=== PATIENT | female | born 1945 | race Caucasian/White ===

== ENCOUNTER 2022-09-05 12:09 | Observation (INO) | payer MEDICARE ==
--- NOTE | 2022-09-05 12:33 | ERPHSYRPT ---
- History of Present Illness Time Seen by Provider: 09/05/22 12:28 Source: patient, family, EMS Exam Limitations: no limitations Physician History: Pt had syncopal episode x 3 in [facility] and finally came to by the time ambulance arrived and no furhter symptoms here. Independent data from pt, bystanders, family and EMS all collaborate same story. No trauma, did not fall. 15 minutes total span of episode. She says no CP or SOBreath. EKG ordered and reviewed and has mild ST elevation and nonspecific , <1 mm. pt states sees cardio Dr. Patino but no procedures done or prescribed - had [place] in 2015 by her Hx. Witnessed: by family, bystander Prior Episodes: multiple episodes today Timing/Duration: today Precipitating Factors: none Context: sitting Loss of Consciousness: prolonged (minutes), dazed Charcter of event(s): became unresponsive Allergies/Adverse Reactions: No Known Drug Allergies Allergy (Verified 09/05/22 12:11) Home Medications: Acetaminophen [Tylenol] 325 mg PO UD 05/19/17 [History] Aspirin EC 325 mg [Ecotrin 325 MG] 325 mg PO DAILY 05/19/17 [History] Bisacodyl 5 mg [Dulcolax 5 mg] 5 mg PO UD 05/19/17 [History] Citalopram Hydrobromide [Celexa] 10 mg PO DAILY 05/19/17 [History] Dextran 70/Hypromellose [Artificial Tears Eye Drops] 15 ml OP UD 05/19/17 [History] Donepezil HCl 10 mg [Aricept 10 MG] 10 mg PO HS 05/19/17 [History] Ergocalciferol (Vitamin D2) [Vitamin D] 50,000 unit PO TID 05/19/17 [History] Gentamicin Sulfate 3.5 gm [Gentak 3.5GM Opthalmic Oint] 1 drop .ROUTE QID 05/19/17 [History] Hydrocodone/Acetaminophen [Hood 5-325 Tablet] 1 each PO UD 05/19/17 [History] Lisinopril 5 mg [Zestril 5 MG] 5 mg PO BID 05/19/17 [History] Metoprolol Succinate 50 mg PO DAILY 05/19/17 [History] Nitroglycerin 0.4 mg Tablet [Nitrostat 0.4 MG Tablet] 0.4 mg SL UD 05/19/17 [History] Omeprazole 20 MG [Prilosec 20 mg] 20 mg PO DAILY 05/19/17 [History] Oxybutynin Chloride [Oxybutynin Chloride ER] 5 mg PO HS 05/19/17 [History] Pravastatin Sodium [Pravachol] 20 mg PO DAILY 05/19/17 [History] Travorpost Ophth [Travatan 0.004% Opth Gena] 2.5 ml OP DAILY 05/19/17 [History] - Past Medical History Pertinent Past Medical History: Yes Neurological History: No Pertinent History ENT History: Cataracts, Macular Degeneration Cardiac History: High Cholesterol, Hypertension Respiratory History: No Pertinent History Endocrine Medical History: No Pertinent History Musculoskeletal History: Osteoarthritis GI Medical History: Gallbladder Disease History: Other Psycho-Social History: Depression Female Reproductive Disorders: Other Other Medical History: satish. eye inj. for degenerative disease, left breast lumpectomy,lap emiliano, pt states "my kidneys work 48% - Past Surgical History Past Surgical History: Yes Neuro Surgical History: No Pertinent History Cardiac: Cardiac Catheterization Respiratory: No Pertinent History Gastrointestinal: Cholecystectomy Genitourinary: Other Musculoskeletal: Joint Replacement, Other Female Surgical History: Lumpectomy Other Surgical History: march 15 2017 bladder tie up and had "massive heart attack", left breast lumpectomy, satish eye inj.for degenerative, lap emiliano.Right hip repair,Righ knee replacement x two - Social History Smoking Status: Never smoker Exposure to second hand smoke: No Drug Use: none - Review of Systems Constitutional: No Fever, No Chills Eyes: No Symptoms Ears, Nose, & Throat: No Symptoms Respiratory: No Cough, No Dyspnea Cardiac: No Chest Pain, No Edema, No Syncope Abdominal/Gastrointestinal: No Abdominal Pain, No Nausea, No Vomiting, No Diarrhea Genitourinary Symptoms: No Dysuria Musculoskeletal: No Back Pain, No Neck Pain Skin: No Rash Neurological: Other (syncope), No Dizziness, No Focal Weakness, No Sensory Changes Psychological: No Symptoms Endocrine: No Symptoms Hematologic/Lymphatic: No Symptoms Immunological/Allergic: No Symptoms All Other Systems: Reviewed and Negative Physical Exam - Nursing Vital Signs Nursing Vital Signs: Initial Vital Signs Temperature 96.3 F 09/05/22 12:14 Pulse Rate 62 09/05/22 12:14 Respiratory Rate 20 09/05/22 12:14 O2 Sat by Pulse Oximetry 98 09/05/22 12:14 Pain Scale Pain Intensity 0 - Kamran Coma Scale Best Eye Response ([place]): (4) open spontaneously Best Verbal Response (Kamran): (5) oriented Best Motor Response ([place]): (6) obeys commands Kamran Total: 15 - Physical Exam General Appearance: no apparent distress, alert Eye Exam: bilateral eye: normal inspection, PERRL, EOMI Ears, Nose, Throat Exam: normal ENT inspection, pharynx normal, moist mucous membranes Neck Exam: normal inspection, non-tender, supple, full range of motion Respiratory: normal breath sounds, lungs clear, No chest tenderness, No respiratory distress Cardiovascular: regular rate/rhythm, capillary refill <2 sec, No murmur, No pulse deficit Gastrointestinal: soft, No tenderness, No distention, No mass Pelvic Exam: deferred Rectal Exam: deferred Back Exam: normal inspection, normal range of motion, No CVA tenderness, No vertebral tenderness Extremity Exam: normal inspection, normal range of motion, pelvis stable, No tenderness Peripheral Pulses: carotid (R): 2+, carotid (L): 2+, femoral (R): 2+, femoral (L): 2+, dorsalis-pedis (R): 2+, dorsalis-pedis (L): 2+ Mental Status: alert, oriented x 3, 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 Exam: normal speech, PERRL, tongue midline, No facial droop Coordination/Gait: normal finger to nose Motor/Sensory: no motor deficit, no sensory deficit, no pronator drift DTR: bicep (R): 2+, bicep (L): 2+, tricep (R): 2+, tricep (L): 2+, knee (R): 2+, knee (L): 2+, ankle (R): 2+, ankle (L): 2+ Skin Exam: normal color, warm, dry, No rash SpO2 Interpretation: normal SpO2: 98 O2 Delivery: Room Air - Course Nursing assessment & vital signs reviewed: Yes EKG Interpreted by Me: Sinus Rhythm, Non-specific ST Changes, Other (minimal ST elevation < 1 mm lat leads) Ordered Tests: Active Orders 24 hr Category Date Time Status EKG-ER Only STAT Care 09/05/22 12:36 Active IV Insertion STAT Care 09/05/22 12:36 Active CHEST 1 VIEW (PORTABLE) Stat Exams 09/05/22 12:36 Taken CHEST WITH CONTRAST [CT] Stat Exams 09/05/22 13:35 Ordered HEAD WITHOUT CONTRAST [CT] Stat Exams 09/05/22 12:37 Taken CBC W DIFF Stat Lab 09/05/22 12:53 Completed CMP Stat Lab 09/05/22 12:53 Completed D-DIMER QUANTITATIVE Stat Lab 09/05/22 12:53 Completed Lactic Acid Stat Lab 09/05/22 12:36 Completed TROPONIN Q4H Lab 09/05/22 12:53 Completed TROPONIN Q4H Lab 09/05/22 16:45 Ordered TROPONIN Q4H Lab 09/05/22 20:45 Ordered UA W/RFX UR CULTURE Stat Lab 09/05/22 12:36 Ordered Medication Summary Generic Name Dose Route Start Last Admin Trade Name Freq PRN Reason Stop Dose Admin Sodium Chloride 1,000 mls @ 100 mls/hr 09/05/22 12:45 09/05/22 13:37 Sodium Chloride 0.9% 1000 Ml IV 10/05/22 12:44 100 mls/hr .Q10H MISA Administration Lab/Rad Data: Laboratory Result Diagrams 09/05/22 12:53 09/05/22 12:53 Laboratory Results 09/05/22 09/05/22 09/05/22 Range/Units 13:57 12:53 12:53 WBC (4.0-10.5) x10^3/uL RBC (4.1-5.4) x10^6/uL Hgb (12.0-16.0) g/dL Hct (35-47) % MCV (78-100) fL MCH (26-32) pg MCHC (32-36) g/dL RDW (11.5-14.0) % Plt Count (150-450) x10^3/uL MPV (7.5-11.0) fL Gran % (36.0-66.0) % Immature Gran % (Auto) (0.00-0.4) % Nucleat RBC Rel Count (0.00-0.1) % Eos # (Auto) (0-0.5) x10^3/uL Immature Gran # (Auto) (0.00-0.03) x10^3u/L Absolute Lymphs (auto) (1.0-4.6) x10^3/uL Absolute Monos (auto) (0.0-1.3) x10^3/uL Absolute Nucleated RBC (0.00-0.01) x10^3u/L Lymphocytes % (24.0-44.0) % Monocytes % (0.0-12.0) % Eosinophils % (0.00-5.0) % Basophils % (0.0-0.4) % Absolute Granulocytes (1.4-6.9) x10^3/uL Basophils # (0-0.4) x10^3/uL D-Dimer 0.71 H* (0.0-0.50) mg/L Sodium (137-145) mmol/L Potassium (3.5-5.1) mmol/L Chloride (98-107) mmol/L Carbon Dioxide (22-30) mmol/L Anion Gap (5-15) MEQ/L BUN (7-17) mg/dL Creatinine (0.52-1.04) mg/dL Estimated GFR ML/MIN Glucose (74-106) mg/dL Lactic Acid (0.4-2.0) Calcium (8.4-10.2) mg/dL Total Bilirubin (0.2-1.3) mg/dL AST (14-36) U/L ALT (0-35) U/L Alkaline Phosphatase (38-126) U/L Troponin I < 0.012 (0.000-0.034) ng/mL Serum Total Protein (6.3-8.2) g/dL Albumin (3.5-5.0) g/dL Influenza Type A Ag NEGATIVE (NEGATIVE) Influenza Type B Ag NEGATIVE (NEGATIVE) RSV (PCR) NEGATIVE (Negative) SARS-CoV-2 (PCR) NEGATIVE (NEGATIVE) 09/05/22 09/05/22 09/05/22 Range/Units 12:53 12:53 12:36 WBC 5.4 (4.0-10.5) x10^3/uL RBC 3.07 L (4.1-5.4) x10^6/uL Hgb 9.7 L (12.0-16.0) g/dL Hct 30.9 L (35-47) % MCV 100.7 H (78-100) fL MCH 31.6 (26-32) pg MCHC 31.4 L (32-36) g/dL RDW 14.6 H (11.5-14.0) % Plt Count 189 (150-450) x10^3/uL MPV 10.0 (7.5-11.0) fL Gran % 63.1 (36.0-66.0) % Immature Gran % (Auto) 0.2 (0.00-0.4) % Nucleat RBC Rel Count 0.0 (0.00-0.1) % Eos # (Auto) 0.06 (0-0.5) x10^3/uL Immature Gran # (Auto) 0.01 (0.00-0.03) x10^3u/L Absolute Lymphs (auto) 1.39 (1.0-4.6) x10^3/uL Absolute Monos (auto) 0.47 (0.0-1.3) x10^3/uL Absolute Nucleated RBC 0.00 (0.00-0.01) x10^3u/L Lymphocytes % 25.9 (24.0-44.0) % Monocytes % 8.8 (0.0-12.0) % Eosinophils % 1.1 (0.00-5.0) % Basophils % 0.9 (0.0-0.4) % Absolute Granulocytes 3.39 (1.4-6.9) x10^3/uL Basophils # 0.05 (0-0.4) x10^3/uL D-Dimer (0.0-0.50) mg/L Sodium 139 (137-145) mmol/L Potassium 4.7 (3.5-5.1) mmol/L Chloride 112 H (98-107) mmol/L Carbon Dioxide 22 (22-30) mmol/L Anion Gap 9.3 (5-15) MEQ/L BUN 23 H (7-17) mg/dL Creatinine 1.44 H (0.52-1.04) mg/dL Estimated GFR 37.4 ML/MIN Glucose 113 H (74-106) mg/dL Lactic Acid 1.0 (0.4-2.0) Calcium 9.6 (8.4-10.2) mg/dL Total Bilirubin 0.20 (0.2-1.3) mg/dL AST 20 (14-36) U/L ALT 12 (0-35) U/L Alkaline Phosphatase 72 (38-126) U/L Troponin I (0.000-0.034) ng/mL Serum Total Protein 6.4 (6.3-8.2) g/dL Albumin 3.6 (3.5-5.0) g/dL Influenza Type A Ag (NEGATIVE) Influenza Type B Ag (NEGATIVE) RSV (PCR) (Negative) SARS-CoV-2 (PCR) (NEGATIVE) - Progress Progress: improved, re-examined Progress Note: 09/05/22 13:36 discussed elevated D dimer with pt and risks/benefits and she wishes to proceed with CT 09/05/22 15:17 ordered and reviewed EKG, Trop, D DImer, CBC, CMT, UA and abd labs with pt, family and Dr. Fuentes. She cannot have CT due to elevated RFTs. 09/05/22 15:[address] Fuentes and family and all agree best to place pt in hospit al for observation and follow trops pulse ox - she feels that the D DImer in view of clinical findings is not likely indicating a PE or DVT but will observe and place on routine proph lovenox and observe rather that test with VQ and this seems reasonable. Discussed with : Rhea Will see patient in: hospital (observation) Counseled pt/family regarding: lab results, diagnosis, need for follow-up, rad results - Departure Departure Disposition: Observation Clinical Impression: Syncope and collapse Condition: Good Critical Care Time: No Referrals: CHRISTOPHER HERNADEZ MD [Primary Care Provider] - Follow up/PCP as directed
[2022-09-05 12:58] LABS: Hematocrit 30.9 % (35-47); Hemoglobin 9.7 g/dL (12.0-16.0); Mean Cell Volume 100.7 fL (78-100); Mean Corpuscular Hemoglobin 31.6 pg (26-32); Mean Corpuscular Hgb Concent. 31.4 g/dL (32-36); Platelet Count 189 x10^3/uL (150-450); Red Blood Count 3.07 x10^6/uL (4.1-5.4); Red Cell Distribution Width 14.6 % (11.5-14.0); White Blood Count 5.4 x10^3/uL (4.0-10.5)
[2022-09-05 12:59] LABS: Absolute Neutrophil Ct (ANC) 3.39 x10^3/uL (1.4-6.9); Basophil (Absolute #) 0.05 x10^3/uL (0-0.4); Eosinophil % 1.1 % (0.00-5.0); Eosinophil (Absolute #) 0.06 x10^3/uL (0-0.5); Lymphocyte (Absolute #) 1.39 x10^3/uL (1.0-4.6); Lymphocytes % 25.9 % (24.0-44.0); Monocyte (Absolute #) 0.47 x10^3/uL (0.0-1.3); Monocytes % 8.8 % (0.0-12.0); Neutrophil % 63.1 % (36.0-66.0)
[2022-09-05 13:26] LABS: ALBUMIN 3.6 g/dL (3.5-5.0); ANION GAP 9.3 MEQ/L (5-15); BILIRUBIN,TOTAL 0.2 mg/dL (0.2-1.3); Calcium 9.6 mg/dL (8.4-10.2); Creatinine 1 1.44 mg/dL (0.52-1.04); EST GLOMERULAR FILTRATION RATE 37.4 ML/MIN; Potassium 4.7 mmol/L (3.5-5.1); Total Protein 6.4 g/dL (6.3-8.2)
[2022-09-05] MEDS: Sodium Chloride 0.9% 1000 ML 1,000 ML IV SCH ×2 (13:37→23:35)
[2022-09-05 14:41] LABS: INFLUENZA A NEGATIVE (NEGATIVE); INFLUENZA B NEGATIVE (NEGATIVE); RESPIRATORY SYNCTIAL VIRUS NEGATIVE (Negative); SARS-CoV-2 Xpert Express NEGATIVE (NEGATIVE)
[2022-09-05] MEDS ORDERED: Zofran 4 MG/2 ML VIAL IV PRN (16:26)
[2022-09-05] MEDS ORDERED: Sodium Chloride 0.9% 1000 ML 1,000 ML IV SCH (16:26)
[2022-09-05] MEDS ORDERED: HUMULIN R SQ PRN (16:26)
[2022-09-05] MEDS ORDERED: ULTRAM 50 MG PO PRN (17:31)
--- NOTE | 2022-09-05 19:08 | XRAY ---
Indication: Syncope. Acute mental status change. Multiple contiguous axial images obtained through the head without contrast. Comparison: None Age-appropriate global atrophy and mild periventricular degenerative micro-ischemia bilaterally. Left external capsule demonstrates 2 foci of remote lacunar infarcts. No acute intracranial hemorrhage, abnormal extra-axial fluid collection, or mass effect. Fourth ventricle is midline without hydrocephalus. Bony calvarium intact. Visualized paranasal sinuses and mastoid air cells are clear. 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 Comment: Preliminary interpretation made by [facility]. No critical discrepancy.
--- NOTE | 2022-09-05 19:09 | XRAY ---
Indication: Syncope. Comparison: March 20, 2008 Portable chest inflated and clear again with left base calcified granuloma. Heart not enlarged. Bony thorax intact with osteopenia and mild degenerative changes. Impression: Continued nonacute chest with chronic features.
[2022-09-05] MEDS: DESYREL 50 MG PO SCH (20:59)
[2022-09-05] MEDS: BUSPAR 5 MG PO SCH (20:59)
[2022-09-05] MEDS: Miralax Powder 17GM PACKET PO SCH (21:00)
[2022-09-05] MEDS: Travatan 0.004% Opth Sol OP SCH (21:01)
[2022-09-05] MEDS: ZOCOR 20MG PO SCH (21:01)
[2022-09-05] MEDS ORDERED: Pepcid 20 MG VIAL IV SCH (22:00)
[2022-09-05] MEDS ORDERED: NEURONTIN PO SCH (22:00)
[2022-09-05] MEDS ORDERED: Ditropan 5 MG PO SCH (22:00)
[2022-09-06 05:39] LABS: Absolute Neutrophil Ct (ANC) 2.08 x10^3/uL (1.4-6.9); Basophil (Absolute #) 0.03 x10^3/uL (0-0.4); Eosinophil % 2.3 % (0.00-5.0); Hematocrit 29.1 % (35-47); Lymphocytes % 39.1 % (24.0-44.0); Mean Corpuscular Hemoglobin 31.3 pg (26-32); Mean Corpuscular Hgb Concent. 30.9 g/dL (32-36); Mean Platelet Volume 10.4 fL (7.5-11.0); Monocyte (Absolute #) 0.43 x10^3/uL (0.0-1.3); Monocytes % 9.9 % (0.0-12.0); Neutrophil % 47.8 % (36.0-66.0); Platelet Count 175 x10^3/uL (150-450); Red Blood Count 2.88 x10^6/uL (4.1-5.4); Red Cell Distribution Width 14.6 % (11.5-14.0); White Blood Count 4.4 x10^3/uL (4.0-10.5)
[2022-09-06 06:11] LABS: ANION GAP 6.8 MEQ/L (5-15); BILIRUBIN,TOTAL 0.1 mg/dL (0.2-1.3); Calcium 8.7 mg/dL (8.4-10.2); Creatinine 1 1.08 mg/dL (0.52-1.04); EST GLOMERULAR FILTRATION RATE 52.2 ML/MIN; Potassium 4.2 mmol/L (3.5-5.1); Total Protein 5.5 g/dL (6.3-8.2)
[2022-09-06] MEDS ORDERED: MEDICATION INTERVENTION MC SCH (07:45)
[2022-09-06] MEDS: ECOTRIN 81 MG PO SCH (09:12)
[2022-09-06] MEDS: Ditropan 5 MG PO SCH ×3 (09:12→22:33)
[2022-09-06] MEDS: Toprol-Xl 25MG Tablets PO SCH (09:12)
[2022-09-06] MEDS: Pepcid 20 MG PO SCH (09:13)
[2022-09-06] MEDS: BUSPAR 5 MG PO SCH ×2 (09:14→22:33)
[2022-09-06] MEDS: ceLEXa 20 MG PO SCH (09:14)
[2022-09-06] MEDS: ENOXAPARIN SODIUM SQ SCH (09:14)
[2022-09-06] MEDS: Zestril 10 MG PO SCH (09:14)
[2022-09-06] MEDS: Miralax Powder 17GM PACKET PO SCH ×2 (09:18→22:33)
[2022-09-06] MEDS: Sodium Chloride 0.9% 1000 ML 1,000 ML IV SCH (09:30)
[2022-09-06] MEDS ORDERED: NON-FORMULARY ITEM (Citalopram Hydrobromide [Celexa] 10 MG Tablet) PO SCH (10:00)
[2022-09-06] MEDS ORDERED: BUSPAR 5 MG PO SCH (10:00)
[2022-09-06] MEDS ORDERED: Zestril 10 MG*** 10 MG, hydroDIURIL 25 MG*** 12.5 MG PO SCH ×2 (10:00)
[2022-09-06] MEDS ORDERED: VITAMIN D2 PO SCH (10:00)
[2022-09-06] MEDS ORDERED: Ditropan XL 5 MG PO SCH (10:00)
[2022-09-06] MEDS ORDERED: BUMEX 1 MG PO SCH (10:00)
--- NOTE | 2022-09-06 20:03 | PCM.HP ---
History of Present Illness - Chief Complaint Chief Complaint: Syncope History of Present Illness: is a 77 year old female patient who had a syncope episode at [facility] ,family states she leaned over into her niece as she passed out and finally came to when ambulance got there. .No head trauma or seizure activity per family. Patient denies chest pain or dyspnea. EKG ordered and reviewed and has mild ST elevation and nonspecific , <1 mm. 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 Patient is admitted to [facility] OBS. - Review of Systems Constitutional: No Symptoms Eyes: No Symptoms Ears, Nose, & Throat: No Symptoms Respiratory: No Symptoms Cardiac: No Symptoms Abdominal/Gastrointestinal: No Symptoms Genitourinary Symptoms: No Symptoms Musculoskeletal: No Symptoms Skin: No Symptoms Neurological: Other (syncope) Psychological: No Symptoms Endocrine: No Symptoms Hematologic/Lymphatic: No Symptoms Immunological/Allergic: No Symptoms Medications & Allergies Home Medications: Home Medication List Citalopram Hydrobromide [Celexa] 10 mg PO DAILY 05/19/17 [History Confirmed 09/05/22] Ergocalciferol (Vitamin D2) [Vitamin D] 50,000 unit PO DAILY 05/19/17 [History Confirmed 09/05/22] Metoprolol Succinate 25 mg PO DAILY 05/19/17 [History Confirmed 09/05/22] Oxybutynin Chloride [Oxybutynin Chloride ER] 5 mg PO TID 05/19/17 [History Confirmed 09/05/22] Pravastatin Sodium [Pravachol] 40 mg PO HS 05/19/17 [History Confirmed 09/05/22] Travorpost Ophth [Travatan 0.004% Opth Gena] 2.5 ml OP HS 05/19/17 [History Confirmed 09/05/22] Aspirin EC 81 mg [Ecotrin 81 mg] 81 mg PO DAILY 09/05/22 [History Confirmed 09/05/22] Bumetanide 1 mg [Bumex 1 mg] 1 mg PO DAILY 09/05/22 [History Confirmed 09/05/22] Buspirone HCl 5 mg [Buspar 5 mg] 10 mg PO TID 09/05/22 [History Confirmed 09/05/22] Gabapentin [Neurontin ] 300 mg PO BID 09/05/22 [History Confirmed 09/05/22] Hydrochlorothiazide 25 mg [hydroDIURIL 25 MG] 12.5 mg PO DAILY 09/05/22 [History Confirmed 09/05/22] Lisinopril 10 mg [Zestril 10 MG] 10 mg PO DAILY 09/05/22 [History Confirmed 09/05/22] Polyethylene Glycol 3350 [Miralax] 17 gm PO BID 09/05/22 [History Confirmed 09/05/22] Tramadol HCl 50 mg [Ultram 50 mg] 50 mg PO DAILY PRN 09/05/22 [History Confirmed 09/05/22] Trazodone HCl 50 mg [Desyrel 50 mg] 50 mg PO HS 09/05/22 [History Confirmed 09/05/22] Trimethoprim 100 mg PO BID 09/05/22 [History Confirmed 09/05/22] Famotidine [Pepcid] 40 mg PO DAILY 30 Days #30 tablet 09/10/22 [Rx] PANTOPRAZOLE 40 mg Tablet [Protonix 40MG Tablet] 40 mg PO QAM 30 Days #30 tab 09/10/22 [Rx] Sucralfate 1 gm [Carafate 1 GM] 1 g PO ACHS 30 Days #120 tablet 09/10/22 [Rx] Allergies/Adverse Reactions: Allergies Allergy/AdvReac Type Severity Reaction Status Date / Time No Known Drug Allergies Allergy Verified 09/05/22 12:11 - Past Medical History Past Medical History: Yes Neurological History: No Pertinent History ENT History: Cataracts, Macular Degeneration Cardiac History: High Cholesterol, Hypertension Respiratory History: No Pertinent History Endocrine Medical History: No Pertinent History Musculoskelatal History: Osteoarthritis GI Medical History: Gallbladder Disease History: Other Pyscho-Social History: Depression Reproductive Disorders: Other Comment: satish. eye inj. for degenerative disease, left breast lumpectomy,lap emiliano, pt states "my kidneys work 48% - Female History Are you now?: No - Past Surgical History Past Surgical History: Yes Neuro Surgical History: No Pertinent History Cardiac History: Cardiac Catheterization Respiratory Surgery: No Pertinent History GI Surgical History: Cholecystectomy Genitourinary Surgical Hx: Other Musculskeletal Surgical Hx: Joint Replacement, Other Female Surgical History: Lumpectomy Other Surgical History: march 15 2017 bladder tie up and had "massive heart attack", left breast lumpectomy, satish eye inj.for degenerative, lap emiliano.Right hip repair,Righ knee replacement x two - Social History Smoking Status: Never smoker Exposure to second hand smoke: No Alcohol: None Drug Use: none - Physical Exam Vital Signs: Vital Signs - 24 hr Temp Pulse Resp BP Pulse Ox 09/06/22 19:42 97.7 F 67 16 122/61 98 09/06/22 16:00 98.0 F 61 16 135/63 99 09/06/22 11:28 97.9 F 65 16 136/64 100 09/06/22 08:00 98.1 F 72 16 138/60 95 09/06/22 04:00 98 F 61 17 104/51 94 L 09/06/22 00:00 97.8 F 75 18 100/46 97 General Appearance: no apparent distress Neurologic Exam: alert, oriented x 3, 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, 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, normal mood/affect, nml cerebellar function, nml station & gait, other (no motor orsensory defecits) Eye Exam: eyes nml inspection Ears, Nose, Throat Exam: normal ENT inspection Neck Exam: normal inspection Respiratory Exam: normal breath sounds Cardiovascular Exam: regular rate/rhythm Gastrointestinal/Abdomen Exam: soft (nontender) Pelvic Exam: not done Rectal Exam: not done Back Exam: normal inspection Extremity Exam: normal inspection Skin Exam: normal color, warm, dry Results - Labs Lab/Micro Results: Lab Results-Last 24 Hours 09/05/22 09/05/22 09/06/22 Range/Units 21:24 22:10 04:50 WBC 4.4 (4.0-10.5) x10^3/uL RBC 2.88 L (4.1-5.4) x10^6/uL Hgb 9.0 L (12.0-16.0) g/dL Hct 29.1 L (35-47) % MCV 101.0 H (78-100) fL MCH 31.3 (26-32) pg MCHC 30.9 L (32-36) g/dL RDW 14.6 H (11.5-14.0) % Plt Count 175 (150-450) x10^3/uL MPV 10.4 (7.5-11.0) fL Gran % 47.8 (36.0-66.0) % Immature Gran % (Auto) 0.2 (0.00-0.4) % Nucleat RBC Rel Count 0.0 (0.00-0.1) % Eos # (Auto) 0.10 (0-0.5) x10^3/uL Immature Gran # (Auto) 0.01 (0.00-0.03) x10^3u/L Absolute Lymphs (auto) 1.70 (1.0-4.6) x10^3/uL Absolute Monos (auto) 0.43 (0.0-1.3) x10^3/uL Absolute Nucleated RBC 0.00 (0.00-0.01) x10^3u/L Lymphocytes % 39.1 (24.0-44.0) % Monocytes % 9.9 (0.0-12.0) % Eosinophils % 2.3 (0.00-5.0) % Basophils % 0.7 (0.0-0.4) % Absolute Granulocytes 2.08 (1.4-6.9) x10^3/uL Basophils # 0.03 (0-0.4) x10^3/uL Sodium (137-145) mmol/L Potassium (3.5-5.1) mmol/L Chloride (98-107) mmol/L Carbon Dioxide (22-30) mmol/L Anion Gap (5-15) MEQ/L BUN (7-17) mg/dL Creatinine (0.52-1.04) mg/dL Estimated GFR ML/MIN Glucose (74-106) mg/dL POC Glucometer 94 (74 to 106) mg/dL Calcium (8.4-10.2) mg/dL Total Bilirubin (0.2-1.3) mg/dL AST (14-36) U/L ALT (0-35) U/L Alkaline Phosphatase (38-126) U/L Troponin I < 0.012 (0.000-0.034) ng/mL Serum Total Protein (6.3-8.2) g/dL Albumin (3.5-5.0) g/dL 09/06/22 Range/Units 04:50 WBC (4.0-10.5) x10^3/uL RBC (4.1-5.4) x10^6/uL Hgb (12.0-16.0) g/dL Hct (35-47) % MCV (78-100) fL MCH (26-32) pg MCHC (32-36) g/dL RDW (11.5-14.0) % Plt Count (150-450) x10^3/uL MPV (7.5-11.0) fL Gran % (36.0-66.0) % Immature Gran % (Auto) (0.00-0.4) % Nucleat RBC Rel Count (0.00-0.1) % Eos # (Auto) (0-0.5) x10^3/uL Immature Gran # (Auto) (0.00-0.03) x10^3u/L Absolute Lymphs (auto) (1.0-4.6) x10^3/uL Absolute Monos (auto) (0.0-1.3) x10^3/uL Absolute Nucleated RBC (0.00-0.01) x10^3u/L Lymphocytes % (24.0-44.0) % Monocytes % (0.0-12.0) % Eosinophils % (0.00-5.0) % Basophils % (0.0-0.4) % Absolute Granulocytes (1.4-6.9) x10^3/uL Basophils # (0-0.4) x10^3/uL Sodium 141 (137-145) mmol/L Potassium 4.2 (3.5-5.1) mmol/L Chloride 116 H (98-107) mmol/L Carbon Dioxide 22 (22-30) mmol/L Anion Gap 6.8 (5-15) MEQ/L BUN 16 (7-17) mg/dL Creatinine 1.08 H (0.52-1.04) mg/dL Estimated GFR 52.2 ML/MIN Glucose 88 (74-106) mg/dL POC Glucometer (74 to 106) mg/dL Calcium 8.7 (8.4-10.2) mg/dL Total Bilirubin 0.10 L (0.2-1.3) mg/dL AST 17 (14-36) U/L ALT 11 (0-35) U/L Alkaline Phosphatase 62 (38-126) U/L Troponin I (0.000-0.034) ng/mL Serum Total Protein 5.5 L (6.3-8.2) g/dL Albumin 3.0 L (3.5-5.0) g/dL - Radiology Impressions Radiology Exams & Impressions: Radiology Procedures Category Date Time Status CHEST 1 VIEW (PORTABLE) Stat Exams 09/05/22 12:36 Completed HEAD WITHOUT CONTRAST [CT] Stat Exams 09/05/22 12:37 Completed - Other Procedures and Tests Respiratory Therapy 09/06/22 20:00 EEG >60 Minutes (Extended) ONCE Assessment/Plan (1) Syncope and collapse Status: Acute Code(s): R55 - SYNCOPE AND COLLAPSE (2) Anemia Status: Acute Code(s): D64.9 - ANEMIA, UNSPECIFIED (3) Black stool Status: Chronic Assessment & Plan: ststes colonoscopy at [facility] 2 yrs ago was clean. Code(s): K92.1 - MELENA (4) CAD (coronary artery disease) Status: Acute Code(s): I25.10 - ATHSCL HEART DISEASE OF [place] DEE-NI' CORONARY ARTERY W/O ANG PCTRS
[2022-09-06] MEDS: TYLENOL 325 MG PO PRN (20:12)
[2022-09-06 20:57] LABS: Iron 55 ug/dL (37-170); Iron Saturation 25 % (20-39); TIBC 224 ug/dL (265-462)
[2022-09-06 21:35] LABS: TSH, 3RD Generation 1.61 mIU/L (0.47-4.68)
[2022-09-06] MEDS: DESYREL 50 MG PO SCH (22:33)
[2022-09-06] MEDS: ZOCOR 20MG PO SCH (22:33)
[2022-09-06] MEDS: Travatan 0.004% Opth Sol OP SCH (22:34)
[2022-09-07] MEDS: Sodium Chloride 0.9% 1000 ML 1,000 ML IV SCH ×3 (03:34→21:15)
[2022-09-07 05:06] LABS: Hematocrit 28.3 % (35-47); Hemoglobin 8.6 g/dL (12.0-16.0); Mean Cell Volume 100.4 fL (78-100); Mean Corpuscular Hemoglobin 30.5 pg (26-32); Mean Corpuscular Hgb Concent. 30.4 g/dL (32-36); Mean Platelet Volume 10.3 fL (7.5-11.0); Platelet Count 168 x10^3/uL (150-450); Red Blood Count 2.82 x10^6/uL (4.1-5.4); Red Cell Distribution Width 14.6 % (11.5-14.0); White Blood Count 4.9 x10^3/uL (4.0-10.5)
[2022-09-07 05:13] LABS: Absolute Neutrophil Ct (ANC) 1.88 x10^3/uL (1.4-6.9); Basophil (Absolute #) 0.02 x10^3/uL (0-0.4); Eosinophil % 2.4 % (0.00-5.0); Eosinophil (Absolute #) 0.12 x10^3/uL (0-0.5); Lymphocyte (Absolute #) 2.36 x10^3/uL (1.0-4.6); Monocyte (Absolute #) 0.53 x10^3/uL (0.0-1.3); Monocytes % 10.8 % (0.0-12.0); Neutrophil % 38.2 % (36.0-66.0); Slide Review 1 NO
[2022-09-07 05:54] LABS: ALBUMIN 3.2 g/dL (3.5-5.0); ANION GAP 8.9 MEQ/L (5-15); BILIRUBIN,TOTAL 0.2 mg/dL (0.2-1.3); Calcium 8.7 mg/dL (8.4-10.2); Potassium 4.1 mmol/L (3.5-5.1); Total Protein 5.7 g/dL (6.3-8.2)
[2022-09-07 09:20] LABS: Appearance Cloudy (Clear); Bacteria Many /HPF (None Seen); Bilirubin Negative (Negative); Blood Negative (Negative); Epithelial Cells Rare /HPF (None Seen); Glucose, Urine Negative (Negative); Hyaline Casts NONE SEEN /LPF (0-2); Ketones Negative (Negative); Leukocyte Esterase Trace (Negative); Nitrite Positive (Negative); Protein,Urine Dip Negative (Negative); RBC 0-2 /HPF (0-5); Specific Gravity 1.015 (1.005-1.030); Urobilinogen 0.2 mg/dL (0.2); WBC 21-50 /HPF (0-5)
[2022-09-07 09:25] LABS: ADD URINE CULTURE? YES (NO)
[2022-09-07] MEDS: Toprol-Xl 25MG Tablets PO SCH (09:28)
[2022-09-07] MEDS: Miralax Powder 17GM PACKET PO SCH ×2 (09:28→21:14)
[2022-09-07] MEDS: ECOTRIN 81 MG PO SCH (09:28)
[2022-09-07] MEDS: Ditropan 5 MG PO SCH ×3 (09:29→21:13)
[2022-09-07] MEDS: ceLEXa 20 MG PO SCH (09:29)
[2022-09-07] MEDS: Pepcid 20 MG PO SCH (09:30)
[2022-09-07] MEDS: Zestril 10 MG PO SCH (09:30)
[2022-09-07] MEDS: ENOXAPARIN SODIUM SQ SCH (09:30)
[2022-09-07] MEDS: BUSPAR 5 MG PO SCH ×2 (09:30→21:13)
--- NOTE | 2022-09-07 13:47 | PCM.NOTE ---
Date and Time: 09/07/22 1342 Subjective Assessment: Patient still undergoing workup for syncopal episode. Telemetry sinus bradycardia rate 58 lowest . Hgb dropped again ,now = 8.6 but no BM to collect stool hemocult ,requesting gen surg consult for possible scope. Patient reports melanotic stool chronically but no GI symptoms currently. EEG just completed reported wnl. Objective Exam General Appearance: no apparent distress Neurologic Exam: alert, oriented x 3, cooperative, normal mood/affect Skin Exam: warm, dry, pale Respiratory Exam: normal breath sounds Cardiovascular Exam: bradycardia (50s rate,regular) Gastrointestinal/Abdomen Exam: soft (nontender) OBJECTIVE DATA Vital Signs: Vital Signs - 24 hr Temp Pulse Resp BP Pulse Ox 09/07/22 12:21 97.7 F 58 L 18 142/62 94 L 09/07/22 12:00 97.7 F 74 18 142/62 94 L 09/07/22 08:00 97.8 F 74 16 129/60 96 09/07/22 04:00 97.8 F 67 17 125/60 94 L 09/06/22 23:22 97.7 F 58 L 16 138/62 96 09/06/22 19:42 97.7 F 67 16 122/61 98 09/06/22 16:00 98.0 F 61 16 135/63 99 Pain Assessment - Last Documented Pain Intensity 0 Pain Scale Used 0-10 Pain Scale Intake and Output: Intake & Output 09/05/22 09/06/22 09/07/22 09/08/22 11:59 11:59 11:59 11:59 Intake Total 2198 1292 360 Output Total 350 2750 Balance 1848 -1458 360 Weight 73.4 kg 74.5 kg Lab Results: Lab Results-Last 24 Hours 09/05/22 09/06/22 09/06/22 Range/Units 09:10 19:58 20:00 WBC (4.0-10.5) x10^3/uL RBC (4.1-5.4) x10^6/uL Hgb (12.0-16.0) g/dL Hct (35-47) % MCV (78-100) fL MCH (26-32) pg MCHC (32-36) g/dL RDW (11.5-14.0) % Plt Count (150-450) x10^3/uL MPV (7.5-11.0) fL Gran % (36.0-66.0) % Immature Gran % (Auto) (0.00-0.4) % Nucleat RBC Rel Count (0.00-0.1) % Eos # (Auto) (0-0.5) x10^3/uL Immature Gran # (Auto) (0.00-0.03) x10^3u/L Absolute Lymphs (auto) (1.0-4.6) x10^3/uL Absolute Monos (auto) (0.0-1.3) x10^3/uL Absolute Nucleated RBC (0.00-0.01) x10^3u/L Lymphocytes % (24.0-44.0) % Monocytes % (0.0-12.0) % Eosinophils % (0.00-5.0) % Basophils % (0.0-0.4) % Absolute Granulocytes (1.4-6.9) x10^3/uL Basophils # (0-0.4) x10^3/uL Sodium (137-145) mmol/L Potassium (3.5-5.1) mmol/L Chloride (98-107) mmol/L Carbon Dioxide (22-30) mmol/L Anion Gap (5-15) MEQ/L BUN (7-17) mg/dL Creatinine (0.52-1.04) mg/dL Estimated GFR ML/MIN Glucose (74-106) mg/dL POC Glucometer (74 to 106) mg/dL Calcium (8.4-10.2) mg/dL Iron 55 (37-170) ug/dL TIBC 224 L (265-462) ug/dL Iron Saturation 25 (20-39) % Total Bilirubin (0.2-1.3) mg/dL AST (14-36) U/L ALT (0-35) U/L Alkaline Phosphatase (38-126) U/L Serum Total Protein (6.3-8.2) g/dL Albumin (3.5-5.0) g/dL Vitamin B12 708 (239-931) pg/mL TSH 3rd Generation 1.610 (0.47-4.68) mIU/L Urine Color Yellow (Yellow) Urine Appearance Cloudy A (Clear) Urine pH 5.0 (4.6-8.0) Ur Specific [place] 1.015 (1.005-1.030) Urine Protein Negative (Negative) Urine Glucose (UA) Negative (Negative) mg/dL Urine Ketones Negative (Negative) Urine Blood Negative (Negative) Urine Nitrite Positive A (Negative) Urine Bilirubin Negative (Negative) Urine Urobilinogen 0.2 (0.2) mg/dL Ur Leukocyte Esterase Trace A (Negative) U Hyaline Cast (Auto) NONE SEEN (0-2) /LPF Urine Microscopic RBC 0-2 (0-5) /HPF Urine Microscopic WBC 21-50 A (0-5) /HPF Ur Epithelial Cells Rare (None Seen) /HPF Urine Bacteria Many A (None Seen) /HPF Urine Culture Reflexed YES (NO) Slides for Path Review 09/07/22 09/07/22 09/07/22 Range/Units 04:27 04:27 11:29 WBC 4.9 (4.0-10.5) x10^3/uL RBC 2.82 L (4.1-5.4) x10^6/uL Hgb 8.6 L (12.0-16.0) g/dL Hct 28.3 L (35-47) % MCV 100.4 H (78-100) fL MCH 30.5 (26-32) pg MCHC 30.4 L (32-36) g/dL RDW 14.6 H (11.5-14.0) % Plt Count 168 (150-450) x10^3/uL MPV 10.3 (7.5-11.0) fL Gran % 38.2 (36.0-66.0) % Immature Gran % (Auto) 0.2 (0.00-0.4) % Nucleat RBC Rel Count 0.0 (0.00-0.1) % Eos # (Auto) 0.12 (0-0.5) x10^3/uL Immature Gran # (Auto) 0.01 (0.00-0.03) x10^3u/L Absolute Lymphs (auto) 2.36 (1.0-4.6) x10^3/uL Absolute Monos (auto) 0.53 (0.0-1.3) x10^3/uL Absolute Nucleated RBC 0.00 (0.00-0.01) x10^3u/L Lymphocytes % 48.0 H (24.0-44.0) % Monocytes % 10.8 (0.0-12.0) % Eosinophils % 2.4 (0.00-5.0) % Basophils % 0.4 (0.0-0.4) % Absolute Granulocytes 1.88 (1.4-6.9) x10^3/uL Basophils # 0.02 (0-0.4) x10^3/uL Sodium 140 (137-145) mmol/L Potassium 4.1 (3.5-5.1) mmol/L Chloride 113 H (98-107) mmol/L Carbon Dioxide 23 (22-30) mmol/L Anion Gap 8.9 (5-15) MEQ/L BUN 16 (7-17) mg/dL Creatinine 1.00 (0.52-1.04) mg/dL Estimated GFR 57.0 ML/MIN Glucose 91 (74-106) mg/dL POC Glucometer 91 (74 to 106) mg/dL Calcium 8.7 (8.4-10.2) mg/dL Iron (37-170) ug/dL TIBC (265-462) ug/dL Iron Saturation (20-39) % Total Bilirubin 0.20 (0.2-1.3) mg/dL AST 17 (14-36) U/L ALT 11 (0-35) U/L Alkaline Phosphatase 59 (38-126) U/L Serum Total Protein 5.7 L (6.3-8.2) g/dL Albumin 3.2 L (3.5-5.0) g/dL Vitamin B12 (239-931) pg/mL TSH 3rd Generation (0.47-4.68) mIU/L Urine Color (Yellow) Urine Appearance (Clear) Urine pH (4.6-8.0) Ur Specific [place] (1.005-1.030) Urine Protein (Negative) Urine Glucose (UA) (Negative) mg/dL Urine Ketones (Negative) Urine Blood (Negative) Urine Nitrite (Negative) Urine Bilirubin (Negative) Urine Urobilinogen (0.2) mg/dL Ur Leukocyte Esterase (Negative) U Hyaline Cast (Auto) (0-2) /LPF Urine Microscopic RBC (0-5) /HPF Urine Microscopic WBC (0-5) /HPF Ur Epithelial Cells (None Seen) /HPF Urine Bacteria (None Seen) /HPF Urine Culture Reflexed (NO) Slides for Path Review NO Multi-Disciplinary Progress Notes: Multi-Disciplinary Progress Notes 09/07/22 11:06 Case Management Note by Nasrin Fisher S/W PATIENT- SHE CONTINUES TO DENY ANY NEW NEEDS AT TIME OF DC. SHE PLANS TO RETURN HOME TO HER PLF AT TIME OF DC Initialized on 09/07/22 11:06 - END OF NOTE Assessment/Plan (1) Syncope and collapse Status: Acute Assessment & Plan: await MRI brain,CTA neck and brain Code(s): R55 - SYNCOPE AND COLLAPSE (2) Anemia Status: Acute Code(s): D64.9 - ANEMIA, UNSPECIFIED (3) Black stool Status: Chronic Code(s): K92.1 - MELENA
[2022-09-07] MEDS: DESYREL 50 MG PO SCH (21:13)
[2022-09-07] MEDS: ZOCOR 20MG PO SCH (21:13)
[2022-09-07] MEDS: Travatan 0.004% Opth Sol OP SCH ×2 (21:14→21:19)
[2022-09-08] MEDS: Sodium Chloride 0.9% 1000 ML 1,000 ML IV SCH ×3 (00:42→21:39)
[2022-09-08 05:53] LABS: Absolute Neutrophil Ct (ANC) 3.17 x10^3/uL (1.4-6.9); Basophil (Absolute #) 0.03 x10^3/uL (0-0.4); Eosinophil % 1.5 % (0.00-5.0); Eosinophil (Absolute #) 0.09 x10^3/uL (0-0.5); Hematocrit 26.5 % (35-47); Hemoglobin 8.4 g/dL (12.0-16.0); Lymphocyte (Absolute #) 1.99 x10^3/uL (1.0-4.6); Mean Cell Volume 99.6 fL (78-100); Mean Corpuscular Hemoglobin 31.6 pg (26-32); Mean Corpuscular Hgb Concent. 31.7 g/dL (32-36); Mean Platelet Volume 10.2 fL (7.5-11.0); Monocyte (Absolute #) 0.55 x10^3/uL (0.0-1.3); Monocytes % 9.4 % (0.0-12.0); Neutrophil % 54.3 % (36.0-66.0); Platelet Count 157 x10^3/uL (150-450); Red Blood Count 2.66 x10^6/uL (4.1-5.4); Red Cell Distribution Width 14.6 % (11.5-14.0); White Blood Count 5.9 x10^3/uL (4.0-10.5)
[2022-09-08 06:33] LABS: ALKALINE PHOSPHATASE 57 U/L (38-126); ANION GAP 5.4 MEQ/L (5-15); BLOOD UREA NITROGEN 11 mg/dL (7-17); CHLORIDE 114 mmol/L (98-107); Calcium 8.6 mg/dL (8.4-10.2); Carbon Dioxide 24 mmol/L (22-30); Creatinine 1 0.83 mg/dL (0.52-1.04); EST GLOMERULAR FILTRATION RATE > 60.0 ML/MIN; Glucose 94 mg/dL (74-106); Potassium 3.8 mmol/L (3.5-5.1); SGOT/AST 18 U/L (14-36); SGPT/ALT 11 U/L (0-35); SODIUM 140 mmol/L (137-145); Total Protein 5.5 g/dL (6.3-8.2)
--- NOTE | 2022-09-08 09:23 | CONS ---
CONSULT DATE: 09/07/2022 HISTORY: The patient is a 77-year-old admitted with some syncopal episodes. She had some anemia and some dark stools. They asked us to see her for possible endoscopy. PAST MEDICAL HISTORY: Hypertension, hypercholesterolemia, cataracts, macular degeneration, osteoarthritis, depression in the past. She had some renal disease. PAST SURGICAL HISTORY: She had some eye injections. She had cholecystectomy, breast lumpectomy in the past. She had a joint replacement, bladder tie up, right knee replacement, right hip repair. HOME MEDICATIONS: She has been on Celexa, vitamin D2, metoprolol, oxybutynin, Pravachol, Travatan eye drops, Ecotrin, Bumex, Buspar, Pepcid, Neurontin, hydroDIURIL, Zestril, MiraLAX, Ultram, Desyrel. She had been on some trimethoprim in the past. ALLERGIES: NKDA. FAMILY HISTORY: Negative for colon cancer according to the patient. SOCIAL HISTORY: No smoking. REVIEW OF SYSTEMS: Fourteen systems reviewed, negative or noncontributory as above and per medical issues as noted above and per preadmission questionnaire. No chest pain or palpitations. LAB DATA AND TESTS: Last hemoglobin was 9 yesterday. PHYSICAL EXAMINATION: GENERAL: No acute distress. HEENT: Sclera nonicteric. NECK: No JVD. CHEST: Equal excursion, nonlabored breathing. CVS: Regular rate and rhythm. ABDOMEN: Soft. No peritoneal signs. EXTREMITIES: No significant edema. NEURO: Alert, moving extremities grossly symmetrically. PSYCH: Appropriate mood and affect. IMPRESSION: Anemia, some dark stools. She had taken some iron in the past. Given her anemia of unclear etiology, I feel she would benefit from upper and lower endoscopy to rule out upper or lower GI source given her anemia. General risk of bleeding or infection, risk of bowel injury or perforation possibly requiring further procedure, risk of missed, nondiagnosis or incomplete exam possibly requiring barium enema, other studies or procedures. General risk of anesthesia or sedation, possibility of inability to diagnose the etiology of anemia source. Consent obtained. She understands and agrees to the plan. I will double check. I believe Dr. Hutchison is here on . If he has time to do the scope, will start a bowel prep tomorrow and keep her on clear liquids.
[2022-09-08] MEDS: ceLEXa 20 MG PO SCH (10:06)
[2022-09-08] MEDS: BUSPAR 5 MG PO SCH ×2 (10:06→21:39)
[2022-09-08] MEDS: Miralax Powder 17GM PACKET PO SCH ×2 (10:06→23:40)
[2022-09-08] MEDS: Zestril 10 MG PO SCH (10:06)
[2022-09-08] MEDS: Ditropan 5 MG PO SCH ×3 (10:06→21:39)
[2022-09-08] MEDS: Toprol-Xl 25MG Tablets PO SCH (10:06)
[2022-09-08] MEDS: Pepcid 20 MG PO SCH (10:06)
[2022-09-08] MEDS: ENOXAPARIN SODIUM SQ SCH (10:51)
--- NOTE | 2022-09-08 11:25 | XRAY ---
Indication: Dizziness. Presyncope. Multi slab 3-D [id number] MRA neck performed without contrast. Comparison: None Visualized carotid bulb, internal carotid, and external carotid arteries are normal in MRA appearance bilaterally. Visualized vertebral arteries demonstrates dominant left vertebral artery without critical stenosis or obstruction. Impression: Negative MRA neck without contrast.
--- NOTE | 2022-09-08 11:45 | XRAY ---
Indication: Dizziness. Presyncope. Sagittal, coronal, and axial MRI brain performed without contrast using T1, T2, FLAIR, diffusion, and ADC sequences. Comparison: None Age-appropriate global atrophy and mild periventricular degenerative micro-ischemia signal bilaterally. Brain stem/omar demonstrates lesser degenerative micro-ischemia signal. Basal ganglia demonstrates remote lacunar infarcts, left greater than right. No acute intracranial hemorrhage, abnormal extra-axial fluid collection, or mass effect. Diffusion images are negative for restricted signal. Fourth ventricle is midline without hydrocephalus. 7/8 cranial nerve complex bilaterally symmetric. Normal flow void signal within the major intracerebral circulation. Normal-appearing craniocervical junction and sella turcica. Paranasal sinuses are clear. Impression: 1. Atrophy and degenerative micro-ischemia within normal limits for patient's age. Bilateral basal ganglia remote lacunar infarcts. 2. Remaining MRI brain without contrast exam is negative.
--- NOTE | 2022-09-08 12:03 | XRAY ---
Indication: Dizziness. Presyncope. Multi-slab 3-D [id number] MRA [place] was performed. Comparison: None Distal internal carotid arteries are bilaterally symmetric without critical stenosis/obstruction. Normal carotid terminus with normal branching left A1 and left/right M1 segments. A normal right A1 segment is not visible suggesting occlusion. Attenuated right A2 segment is supplied via anterior communicating artery. Remaining visible more distal anterior and middle cerebral arteries are normal in MRA appearance bilaterally. Posterior circulation demonstrates dominant left vertebral artery. Remaining basilar, left/right posterior cerebral and left/right superior cerebellar arteries are normal in MRA appearance. Impression: Occluded right A1 segment. More distal right anterior cerebral artery supplied via anterior communicating artery. Remaining MRA [place] is negative.
[2022-09-08] MEDS: TYLENOL 325 MG PO PRN (12:49)
[2022-09-08] MEDS ORDERED: Miscellaneous Medication Order MC ONE (14:00)
[2022-09-08] MEDS ORDERED: Lactated Ringers 1,000 ML IV SCH (17:00)
[2022-09-08] MEDS: GAVILAX PO SCH ×2 (17:06→21:40)
[2022-09-08] MEDS: DESYREL 50 MG PO SCH (21:39)
[2022-09-08] MEDS: ZOCOR 20MG PO SCH (21:39)
[2022-09-08] MEDS: Travatan 0.004% Opth Sol OP SCH (23:41)
[2022-09-09 05:30] LABS: Absolute Neutrophil Ct (ANC) 3.96 x10^3/uL (1.4-6.9); Basophil (Absolute #) 0.02 x10^3/uL (0-0.4); Eosinophil % 1.1 % (0.00-5.0); Eosinophil (Absolute #) 0.07 x10^3/uL (0-0.5); Hematocrit 27.3 % (35-47); Hemoglobin 8.4 g/dL (12.0-16.0); Mean Corpuscular Hemoglobin 30.8 pg (26-32); Mean Corpuscular Hgb Concent. 30.8 g/dL (32-36); Mean Platelet Volume 10.5 fL (7.5-11.0); Monocyte (Absolute #) 0.52 x10^3/uL (0.0-1.3); Monocytes % 8.3 % (0.0-12.0); Platelet Count 153 x10^3/uL (150-450); Red Blood Count 2.73 x10^6/uL (4.1-5.4); Red Cell Distribution Width 14.2 % (11.5-14.0); White Blood Count 6.3 x10^3/uL (4.0-10.5)
[2022-09-09 06:00] LABS: ALKALINE PHOSPHATASE 63 U/L (38-126); ANION GAP 7.7 MEQ/L (5-15); BLOOD UREA NITROGEN 9 mg/dL (7-17); CHLORIDE 112 mmol/L (98-107); Calcium 8.5 mg/dL (8.4-10.2); Carbon Dioxide 22 mmol/L (22-30); Creatinine 1 0.74 mg/dL (0.52-1.04); EST GLOMERULAR FILTRATION RATE > 60.0 ML/MIN; Glucose 84 mg/dL (74-106); Potassium 3.7 mmol/L (3.5-5.1); SGOT/AST 19 U/L (14-36); SGPT/ALT 12 U/L (0-35); SODIUM 138 mmol/L (137-145); Total Protein 5.6 g/dL (6.3-8.2)
[2022-09-09] MEDS ORDERED: Lactated Ringers 1,000 ML IV SCH (07:00)
[2022-09-09] MEDS: TYLENOL 325 MG PO PRN ×2 (07:39→19:44)
[2022-09-09] MEDS: Zestril 10 MG PO SCH (08:51)
[2022-09-09] MEDS: Sodium Chloride 0.9% 1000 ML 1,000 ML IV SCH (08:51)
[2022-09-09] MEDS: BUSPAR 5 MG PO SCH ×2 (08:51→19:43)
[2022-09-09] MEDS: Toprol-Xl 25MG Tablets PO SCH (08:51)
[2022-09-09] MEDS: Ditropan 5 MG PO SCH ×3 (08:51→19:44)
[2022-09-09] MEDS: Pepcid 20 MG PO SCH (08:51)
[2022-09-09] MEDS: ceLEXa 20 MG PO SCH (08:51)
[2022-09-09] MEDS: Miralax Powder 17GM PACKET PO SCH ×2 (08:52→19:45)
[2022-09-09] MEDS ORDERED: Xylocaine-Mpf 2% 5 Ml Vial ONE (11:05)
[2022-09-09] MEDS ORDERED: DIPRIVAN 200 MG/20 ML IV ONE ×2 (11:06→11:26)
--- NOTE | 2022-09-09 13:01 | OP ---
SURGERY DATE/TIME: 09/09/2022 1106 PREOPERATIVE DIAGNOSIS: GI bleed. POSTOPERATIVE DIAGNOSES: 1) Prepyloric ulcer which had recently been bleeding but not bleeding now, starting to heal. 2) A 4 inch hiatal hernia. 3) Grade 4 gastroesophageal reflux disease which had been bleeding but not now. 4) On colonoscopy severe diverticulosis of the sigmoid. Exam was limited to hepatic flexure. There were no signs of any bleeding in the colon at all. PROCEDURES: 1) EGD. 2) Colonoscopy. SURGEON: Jani Hutchison M.D. ANESTHESIA: MAC. COMPLICATIONS: None. CONDITION: Stable. DESCRIPTION OF PROCEDURE: Taken to endoscopy. MAC sedation provided. Good anesthesia present. Scope introduced. Pharyngoesophageal junction normal. Esophagus normal down to gastroesophageal junction. There was a 4 inch hiatal hernia and there was grade 4 gastroesophageal reflux disease. Fundus and body were satisfactory. Antrum prepyloric ulcer was present and had been bleeding but not bleeding now. Duodenal bulb was normal. Second portion normal. Scope looped back on itself. A 4 inch hiatal hernia. Scope withdrawn. There was really a lot of upper disease in this lady which seemed to be improving. Anal digital examination. Scope introduced. Sigmoid was treacherous. There were hundreds of diverticula. It was navigated with loss of a lot of scope length and controlled it up the descending across the transverse, hepatic flexure. It was not really wanting to move any and there were absolutely no signs of bleeding. The only thing that was being missed was the cecum and ascending colon and it was not felt to be the source of bleeding. The scope was circumferentially withdrawn. Findings discussed with the family in the waiting room.
[2022-09-09] MEDS: Protonix 40MG Tablet PO SCH ×2 (16:06→19:43)
[2022-09-09] MEDS: ENOXAPARIN SODIUM SQ SCH (16:06)
[2022-09-09] MEDS: Carafate 1 GM PO SCH ×2 (16:06→19:43)
[2022-09-09] MEDS: DESYREL 50 MG PO SCH (19:44)
[2022-09-09] MEDS: ZOCOR 20MG PO SCH (19:44)
[2022-09-09] MEDS: Travatan 0.004% Opth Sol OP SCH (19:45)
[2022-09-10 06:01] VITALS: O2SAT 92
[2022-09-10 07:32] VITALS: BP 147/71; PULSE 87
[2022-09-10] MEDS: Carafate 1 GM PO SCH (08:16)
== END 2022-09-10 10:02 | disposition home or self-care (01) ==
LOC: ED 12:09 → MED SURG 16:08
PROVIDERS: ADMIT Family Medicine; ATTEND Family Medicine
DX: R55 Syncope and collapse (principal); D64.9 Anemia, unspecified; K92.1 Melena; I25.10 Atherosclerotic heart disease of native coronary artery without angina pectoris; K25.9 Gastric ulcer, unspecified as acute or chronic, without hemorrhage or perforation; K44.9 Diaphragmatic hernia without obstruction or gangrene; K21.9 Gastro-esophageal reflux disease without esophagitis; K57.30 Diverticulosis of large intestine without perforation or abscess without bleeding; E78.5 Hyperlipidemia, unspecified; I10 Essential (primary) hypertension; R00.1 Bradycardia, unspecified; Z79.899 Other long term (current) drug therapy; Z20.828 Contact with and (suspected) exposure to other viral communicable diseases
CPT/HCPCS: 0241U; 36000; 36415; 43235; 45378; 70450; 70544; 70547; 70551; 71045; 80053; 81001; 82274; 82607; 82947; 83036; 83540; 83550; 83605; 84443; 84484; 85025; 85379; 87077; 87086; 87186; 93005; 94760; 95813; 99285; 93268; 99100; 99140; J1650; J2704; A9270-GY; G0378

== ENCOUNTER 2024-01-31 11:20 | Observation (INO) | payer MEDICARE ==
--- NOTE | 2024-01-31 11:31 | ERPHSYRPT ---
- History of Present Illness Time Seen by Provider: 01/31/24 11:31 Source: patient Exam Limitations: no limitations Physician History: The patient, with a history of hypertension, hyperlipidemia, and a family history of stroke, presents with acute cognitive and motor changes. Over the past month, she has been 'not steady on her legs' and 'not completely right.' This morning, she was noted to be 'not talking' and 'forgetting.' She was unable to participate in conversation with friends and forgot about a planned breakfast outing. She denies recent falls or head trauma. Timing/Duration: week(s) (2), worse Severity: moderate Character of Deficits: impaired speech, unable to speak Deficits: off balance, decrease ability to walk Baseline/Normal Cognition: alert oriented x 3 Current Cognition: alert oriented x 3 Baseline Gait: walks only w/assistance Associated Symptoms: weakness, trouble walking, No fever, No chills, No loss of consciousness, No slurred speech Allergies/Adverse Reactions: No Known Drug Allergies Allergy (Verified 01/31/24 11:32) Home Medications: Citalopram Hydrobromide [Celexa] 10 mg PO DAILY 05/19/17 [History] Metoprolol Succinate 25 mg PO DAILY 05/19/17 [History] Oxybutynin Chloride [Oxybutynin Chloride ER] 5 mg PO TID 05/19/17 [History] Pravastatin Sodium [Pravachol] 40 mg PO HS 05/19/17 [History] Travorpost Ophth [Travatan 0.004% Opth Gena] 2.5 ml OP HS 05/19/17 [Histo ry] Aspirin EC 81 mg [Ecotrin 81 mg] 81 mg PO DAILY 09/05/22 [History] Bumetanide 1 mg [Bumex 1 mg] 1 mg PO DAILY 09/05/22 [History] Buspirone HCl 5 mg [Buspar 5 mg] 10 mg PO TID 09/05/22 [History] Gabapentin [Neurontin ] 400 mg PO TID 09/05/22 [History] Tramadol HCl 50 mg [Ultram 50 mg] 50 mg PO [id number] PRN 09/05/22 [History] Trazodone HCl 50 mg [Desyrel 50 mg] 75 mg PO HS 09/05/22 [History] Trimethoprim 100 mg PO DAILY 09/05/22 [History] Losartan Potassium 50 mg [Cozaar 50 MG] 50 mg PO DAILY 01/31/24 [History] Non-Formulary Drug [Non-Formulary Bulk Item] 1 tab PO TID 01/31/24 [History] Hx Influenza Vaccination/Date Given: Yes Hx Pneumococcal Vaccination/Date Given: Yes - Review of Systems All Other Systems: Reviewed and Negative - Past Medical History Pertinent Past Medical History: Yes Neurological History: No Pertinent History ENT History: Cataracts, Macular Degeneration Cardiac History: High Cholesterol, Hypertension, Myocardial Infarction ([place]) Respiratory History: No Pertinent History Endocrine Medical History: No Pertinent History Musculoskeletal History: Osteoarthritis GI Medical History: Gallbladder Disease History: Other Psycho-Social History: Depression Female Reproductive Disorders: Other Other Medical History: R KNEE REPLACEMENT, 2017 "MASSIVE HEART ATTACK", MDD, GERD, SHOTS IN EYES 1X MONTH FOR GLAUCOMA, INCONTINENCE. PATIENT REPORTS SHE NEEDS A LEFT KNEE REPLACEMENT BUT IS NOT A SURGICAL CANDIDATE PER CARDIOLOGY. PATIENT DENIES USE OF KNEE BRACE OR HX OF CORTISONE INJECTIONS. - Past Surgical History Past Surgical History: Yes Neuro Surgical History: No Pertinent History Cardiac: Cardiac Catheterization Respiratory: No Pertinent History Gastrointestinal: Cholecystectomy Genitourinary: Other Musculoskeletal: Joint Replacement, Other Female Surgical History: Lumpectomy Other Surgical History: march 15 2017 bladder tie up and had "massive heart attack", left breast lumpectomy, satish eye inj.for degenerative, lap emiliano.Right hip repair,Righ knee replacement x two - Social History Smoking Status: Never smoker Exposure to second hand smoke: No Drug Use: none Patient Lives Alone: No - Nursing Vital Signs Nursing Vital Signs: Initial Vital Signs Temperature 98.2 F 01/31/24 11:49 Pulse Rate 79 01/31/24 11:49 Respiratory Rate 18 01/31/24 11:49 Blood Pressure 138/66 01/31/24 11:49 O2 Sat by Pulse Oximetry 97 01/31/24 11:49 Pain Scale Pain Intensity 0 - Kamran Coma Scale Best Eye Response (Hassell): (4) open spontaneously Best Verbal Response (Kamran): (5) oriented Best Motor Response (Kamran): (6) obeys commands Hassell Total: 15 - Physical Exam General Appearance: no apparent distress Eye Exam: bilateral eye: normal inspection, PERRL, EOMI - Course Nursing assessment & vital signs reviewed: Yes EKG Interpreted by Me: RATE (84), Sinus Rhythm, Q-wave, NORMAL ST-T, Other (PAC) - CT Exams Head CT Interpretation: Tele-radiologist Report, No/Intracranial Hemorrhag, Other (Nonacute senile brain with remote lacunar infarcts left and right) Ordered Tests: Medication Summary Generic Name Dose Route Start Last Admin Trade Name Freq PRN Reason Stop Dose Admin Acetaminophen 650 mg 02/01/24 07:12 Acetaminophen 325 Mg Tablet PO 03/01/24 15:06 Q4H PRN PRN PAIN, FEVER, HEADACHE Aspirin 81 mg 02/01/24 10:00 02/01/24 10:16 Aspirin 81 Mg Tablet.Ec PO 03/02/24 09:59 81 mg DAILY MISA Administration Buspirone HCl 10 mg 01/31/24 22:00 02/01/24 15:15 Buspirone Hcl 5 Mg Tablet PO 03/01/24 21:59 10 mg TID MISA Administration Citalopram Hydrobromide 10 mg 02/01/24 10:00 02/01/24 10:16 Citalopram Hydrobromide 20 Mg Tablet PO 03/02/24 09:59 10 mg DAILY MISA Administration Clopidogrel Bisulfate 75 mg 02/01/24 10:00 02/01/24 10:18 Clopidogrel Bisulfate 75 Mg Tablet PO 02/22/24 09:59 75 mg DAILY MISA Administration Famotidine 40 mg 02/01/24 10:00 02/01/24 10:16 Famotidine 20 Mg Tablet PO 03/02/24 09:59 40 mg DAILY MISA Administration Gabapentin 400 mg 01/31/24 22:00 02/01/24 21:40 Gabapentin 400 Mg Capsule PO 03/01/24 21:59 400 mg TID MISA Administration Sodium Chloride 1,000 mls @ 50 mls/hr 01/31/24 13:45 02/01/24 08:15 Sodium Chloride 0.9% 1000 Ml IV 03/01/24 13:44 50 mls/hr .Q20H MISA Administration Ceftriaxone Sodium 1 gm in 100 mls @ 200 mls/hr 02/01/24 15:00 02/01/24 15:15 Rocephin 1 Gm / 100 Ml Nacl IV 03/02/24 14:59 200 mls/hr Q24H10 MISA Administration Azithromycin 500 mg in 250 mls @ 250 mls/hr 02/02/24 10:00 Zithromax 500 Mg/ 250 Ml Nacl Premix IV 03/03/24 09:59 Q24H10 MISA Losartan Potassium 50 mg 02/01/24 10:00 02/01/24 10:16 Losartan Potassium 50 Mg Tablet PO 03/02/24 09:59 50 mg DAILY MISA Administration Metoprolol Succinate 25 mg 02/01/24 10:00 02/01/24 10:16 Metoprolol Succinate 25 Mg Xl Tab PO 03/02/24 09:59 25 mg DAILY MISA Administration Ondansetron HCl 4 mg 01/31/24 15:07 01/31/24 21:32 Ondansetron Hcl 4 Mg/2 Ml Vial IV 03/01/24 15:06 4 mg Q6H PRN PRN Administration NAUSEA/VOMITING Oxybutynin Chloride 5 mg 02/01/24 10:00 02/01/24 21:39 Oxybutynin Chloride 5 Mg Tablet PO 03/02/24 09:59 5 mg TID MISA Administration Pantoprazole Sodium 40 mg 02/01/24 10:00 02/01/24 10:15 Protonix (Pantoprazole) 40 Mg Tablet PO 03/02/24 09:59 40 mg QAM MISA Administration Simvastatin 40 mg 01/31/24 22:00 01/31/24 21:26 Simvastatin 20 Mg Tablet PO 03/01/24 21:59 40 mg HS MISA Administration Tramadol HCl 50 mg 01/31/24 17:33 02/01/24 21:41 Tramadol Hcl 50 Mg Tablet PO 03/01/24 17:32 50 mg [id number] PRN Administration PAIN Travoprost 0 ml 01/31/24 22:00 02/01/24 21:40 Travorpost 2.5 Ml Bottle OP 03/01/24 21:59 1 ml HS MISA Administration Trazodone HCl 75 mg 02/01/24 22:00 02/01/24 21:40 Trazodone Hcl 150 Mg Tablet PO 03/02/24 21:59 75 mg HS MISA Administration Discontinued Medications Generic Name Dose Route Start Last Admin Trade Name Freq PRN Reason Stop Dose Admin Acetaminophen 600 mg 01/31/24 15:07 01/31/24 20:52 Acetaminophen 325 Mg Tablet PO 03/01/24 15:06 600 mg Q4H PRN PRN Administration PAIN, FEVER, HEADACHE Droperidol 1.25 mg 01/31/24 12:58 Droperidol 5 Mg/2 Ml Vial IV 01/31/24 12:59 STAT ONE Gabapentin 400 mg 01/31/24 22:00 Gabapentin 300 Mg Capsule PO 03/01/24 21:59 TID MISA Gabapentin Confirm 01/31/24 21:16 Gabapentin 400 Mg Capsule Administered 01/31/24 21:17 Dose 400 mg .ROUTE .STK-MED ONE Potassium Chloride 20 meq in 100 mls @ 50 mls/hr 01/31/24 12:30 01/31/24 13:57 Potassium Chloride 20 Meq In Water 100ml IV 01/31/24 16:29 50 mls/hr Q2H MISA Administration Sodium Chloride Confirm 01/31/24 12:51 Sodium Chloride 0.9% 1000 Ml Administered 01/31/24 12:52 Dose 1,000 mls @ ud .ROUTE .STK-MED ONE Non-Formulary Medication 40 mg 01/31/24 22:00 Pravastatin Sodium [Pravachol] PO 03/01/24 21:59 HS MISA Oxybutynin Chloride 5 mg 01/31/24 22:00 01/31/24 21:26 Oxybutynin Chloride Xl 5 Mg Tab PO 03/01/24 21:59 5 mg TID MISA Administration Potassium Chloride 20 meq 02/01/24 11:30 02/01/24 18:53 Potassium Chloride Tab 10 Meq Tab PO 02/01/24 17:31 20 meq Q2H MISA Administration Simvastatin Confirm 01/31/24 21:17 Simvastatin 20 Mg Tablet Administered 01/31/24 21:18 Dose 40 mg .ROUTE .STK-MED ONE Trazodone HCl 75 mg 01/31/24 22:00 01/31/24 21:26 Trazodone Hcl 50 Mg Tablet PO 03/01/24 21:59 75 mg HS MISA Administration Lab/Rad Data: Laboratory Result Diagrams 01/31/24 11:31 01/31/24 11:55 Laboratory Results 01/31/24 01/31/24 01/31/24 Range/Units 11:55 11:55 11:55 WBC (3.98-10.04) x10^3/uL RBC (3.93-5.22) x10^6/uL Hgb (11.2-15.7) g/dL Hct (34.1-44.9) % MCV (79.4-94.8) fL MCH (25.6-32.2) pg MCHC (32.2-35.5) g/dL RDW (11.7-14.4) % Plt Count (182-369) x10^3/uL MPV (9.4-12.3) fL Gran % (34.0-71.1) % Immature Gran % (Auto) (0.001-0.429) % Nucleat RBC Rel Count (0.00-0.2) % Eos # (Auto) (0.04-0.36) x10^3/uL Immature Gran # (Auto) (0.001-0.031) x10^3u/L Absolute Lymphs (auto) (1.18-3.74) x10^3/uL Absolute Monos (auto) (0.24-0.86) x10^3/uL Absolute Nucleated RBC (0.00-0.012) x10^3u/L Lymphocytes % (19.3-51.7) % Monocytes % (4.7-12.5) % Eosinophils % (0.7-5.8) % Basophils % (0.1-1.2) % Absolute Granulocytes (1.56-6.13) x10^3/uL Basophils # (0.01-0.08) x10^3/uL PT (9.4-12.5) SECONDS INR (0.8-3.0) APTT (25.1-36.5) SECONDS pO2/FiO2 Ratio % VBG pH (7.32-7.42) VBG pCO2 at Pat Temp (42-55) mm/Hg VBG pO2 at Pat Temp (25-40) mm/Hg VBG HCO3 (22-28) meq/L VBG O2 Sat (Pankaj) (95-100) VBG Base Excess (-2.0-2.0) VBG Hemoglobin VBG Carboxyhemoglobin (0.0-6.9) % T HGB POC Potassium (3.5-5.1) Sodium (135-145) mmol/L Potassium (3.5-5.1) mmol/L Chloride (98-107) mmol/L Carbon Dioxide (22-30) mmol/L Anion Gap (5-15) MEQ/L BUN (7-17) mg/dL Creatinine (0.52-1.04) mg/dL Estimated GFR ML/MIN Glucose (74-106) mg/dL Hemoglobin A1c 5.58 (4.5-6.0) % Lactic Acid (0.4-2.0) Calcium (8.4-10.2) mg/dL Total Bilirubin (0.2-1.3) mg/dL AST (14-36) U/L ALT (0-35) U/L Alkaline Phosphatase (38-126) U/L Ammonia < 9 L (9-30) umol/L Troponin I < 0.012 (0.000-0.033) ng/mL Serum Total Protein (6.3-8.2) g/dL Albumin (3.5-5.0) g/dL Triglycerides (30-150) mg/dL Cholesterol (50-200) mg/dL LDL Cholesterol (30-100) mg/dL HDL Cholesterol (40-60) mg/dL Heart Disease Risk Ratio Vitamin B12 (239-931) pg/mL Folic Acid (2.76 - >20) ng/mL TSH 3rd Generation (0.470-4.680) mIU/L 01/31/24 01/31/24 01/31/24 Range/Units 11:55 11:55 11:55 WBC (3.98-10.04) x10^3/uL RBC (3.93-5.22) x10^6/uL Hgb (11.2-15.7) g/dL Hct (34.1-44.9) % MCV (79.4-94.8) fL MCH (25.6-32.2) pg MCHC (32.2-35.5) g/dL RDW (11.7-14.4) % Plt Count (182-369) x10^3/uL MPV (9.4-12.3) fL Gran % (34.0-71.1) % Immature Gran % (Auto) (0.001-0.429) % Nucleat RBC Rel Count (0.00-0.2) % Eos # (Auto) (0.04-0.36) x10^3/uL Immature Gran # (Auto) (0.001-0.031) x10^3u/L Absolute Lymphs (auto) (1.18-3.74) x10^3/uL Absolute Monos (auto) (0.24-0.86) x10^3/uL Absolute Nucleated RBC (0.00-0.012) x10^3u/L Lymphocytes % (19.3-51.7) % Monocytes % (4.7-12.5) % Eosinophils % (0.7-5.8) % Basophils % (0.1-1.2) % Absolute Granulocytes (1.56-6.13) x10^3/uL Basophils # (0.01-0.08) x10^3/uL PT 10.3 (9.4-12.5) SECONDS INR 0.94 (0.8-3.0) APTT 27.1 (25.1-36.5) SECONDS pO2/FiO2 Ratio 21.0 % VBG pH 7.45 H (7.32-7.42) VBG pCO2 at Pat Temp 40 L (42-55) mm/Hg VBG pO2 at Pat Temp 27 (25-40) mm/Hg VBG HCO3 27.8 (22-28) meq/L VBG O2 Sat (Pankaj) 45.2 L (95-100) VBG Base Excess 3.5 H (-2.0-2.0) VBG Hemoglobin 11.1 VBG Carboxyhemoglobin 1.5 (0.0-6.9) % T HGB POC Potassium 2.9 L* (3.5-5.1) Sodium 140 (135-145) mmol/L Potassium 2.8 L* (3.5-5.1) mmol/L Chloride 107 (98-107) mmol/L Carbon Dioxide 25 (22-30) mmol/L Anion Gap 10.9 (5-15) MEQ/L BUN 21 H (7-17) mg/dL Creatinine 1.03 (0.52-1.04) mg/dL Estimated GFR 55.3 ML/MIN Glucose 167 H (74-106) mg/dL Hemoglobin A1c (4.5-6.0) % Lactic Acid (0.4-2.0) Calcium 10.2 (8.4-10.2) mg/dL Total Bilirubin 0.60 (0.2-1.3) mg/dL AST 21 (14-36) U/L ALT 15 (0-35) U/L Alkaline Phosphatase 78 (38-126) U/L Ammonia (9-30) umol/L Troponin I (0.000-0.033) ng/mL Serum Total Protein 7.6 (6.3-8.2) g/dL Albumin 4.0 (3.5-5.0) g/dL Triglycerides 169 H (30-150) mg/dL Cholesterol 202 H (50-200) mg/dL LDL Cholesterol 106 H (30-100) mg/dL HDL Cholesterol 49 (40-60) mg/dL Heart Disease Risk Ratio 4.0 Vitamin B12 787 (239-931) pg/mL Folic Acid > 16.6 (2.76 - >20) ng/mL TSH 3rd Generation 1.996 (0.470-4.680) mIU/L 01/31/24 01/31/24 Range/Units 11:55 11:31 WBC 10.6 H (3.98-10.04) x10^3/uL RBC 3.38 L (3.93-5.22) x10^6/uL Hgb 10.5 L (11.2-15.7) g/dL Hct 31.9 L (34.1-44.9) % MCV 94.4 (79.4-94.8) fL MCH 31.1 (25.6-32.2) pg MCHC 32.9 (32.2-35.5) g/dL RDW 13.9 (11.7-14.4) % Plt Count 178 L (182-369) x10^3/uL MPV 9.8 (9.4-12.3) fL Gran % 79.9 H (34.0-71.1) % Immature Gran % (Auto) 0.8 H (0.001-0.429) % Nucleat RBC Rel Count 0.0 (0.00-0.2) % Eos # (Auto) 0.03 L (0.04-0.36) x10^3/uL Immature Gran # (Auto) 0.08 H (0.001-0.031) x10^3u/L Absolute Lymphs (auto) 1.36 (1.18-3.74) x10^3/uL Absolute Monos (auto) 0.63 (0.24-0.86) x10^3/uL Absolute Nucleated RBC 0.00 (0.00-0.012) x10^3u/L Lymphocytes % 12.8 L (19.3-51.7) % Monocytes % 5.9 (4.7-12.5) % Eosinophils % 0.3 L (0.7-5.8) % Basophils % 0.3 (0.1-1.2) % Absolute Granulocytes 8.50 H (1.56-6.13) x10^3/uL Basophils # 0.03 (0.01-0.08) x10^3/uL PT (9.4-12.5) SECONDS INR (0.8-3.0) APTT (25.1-36.5) SECONDS pO2/FiO2 Ratio % VBG pH (7.32-7.42) VBG pCO2 at Pat Temp (42-55) mm/Hg VBG pO2 at Pat Temp (25-40) mm/Hg VBG HCO3 (22-28) meq/L VBG O2 Sat (Pankaj) (95-100) VBG Base Excess (-2.0-2.0) VBG Hemoglobin VBG Carboxyhemoglobin (0.0-6.9) % T HGB POC Potassium (3.5-5.1) Sodium (135-145) mmol/L Potassium (3.5-5.1) mmol/L Chloride (98-107) mmol/L Carbon Dioxide (22-30) mmol/L Anion Gap (5-15) MEQ/L BUN (7-17) mg/dL Creatinine (0.52-1.04) mg/dL Estimated GFR ML/MIN Glucose (74-106) mg/dL Hemoglobin A1c (4.5-6.0) % Lactic Acid 1.6 (0.4-2.0) Calcium (8.4-10.2) mg/dL Total Bilirubin (0.2-1.3) mg/dL AST (14-36) U/L ALT (0-35) U/L Alkaline Phosphatase (38-126) U/L Ammonia (9-30) umol/L Troponin I (0.000-0.033) ng/mL Serum Total Protein (6.3-8.2) g/dL Albumin (3.5-5.0) g/dL Triglycerides (30-150) mg/dL Cholesterol (50-200) mg/dL LDL Cholesterol (30-100) mg/dL HDL Cholesterol (40-60) mg/dL Heart Disease Risk Ratio Vitamin B12 (239-931) pg/mL Folic Acid (2.76 - >20) ng/mL TSH 3rd Generation (0.470-4.680) mIU/L - Progress Progress: improved Progress Note: Acute Change in Mental Status: New onset of confusion, forgetfulness, and decreased speech output. No history of trauma. Family history of stroke. CT scan ordered to rule out intracranial bleeding. -Admit for further evaluation and monitoring. -Order MRI to evaluate for possible lacunar infarcts or microvascular ischemia. -Order comprehensive lab workup. Hypertension and Hyperlipidemia: On medication, but specific medications not mentioned in the conversation. -Optimize current medications as needed based on lab results and clinical status. General Health Maintenance / Followup Plans -Discuss potential for home assistance and therapy during hospital stay. -Follow-up after hospitalization to assess response to interventions and ongoing needs. 01/31/24 12:[address] Vang who accepts admission at 1255. Discussed with DrKelley: Other (madhu) Will see patient in: hospital (observation) Counseled pt/family regarding: lab results, diagnosis, need for follow-up, rad results Medical Desision Making - Diagnostic Testing Diagnostic test were ordered, analyzed, and reviewed by me: Yes Radiological Interpretation: Interpreted by me, Reviewed by me, Teleradiologist Report - Risk of complications The pt has a mod risk of morbidity or mortality based on: Need for prescription drug management The pt has a high risk of morbidity or mortality based on: Decision regarding hospitilization or escalation of hosp level of care - Departure Departure Disposition: Observation Clinical Impression: Anemia, Hypokalemia, Word finding difficulty, Unsteadiness on feet, Slow rate of speech Condition: Good Critical Care Time: No
[2024-01-31 11:57] LABS: BASOPHIL % 0.3 % (0.1-1.2); Basophil (Absolute #) 0.03 x10^3/uL (0.01-0.08); Eosinophil % 0.3 % (0.7-5.8); Eosinophil (Absolute #) 0.03 x10^3/uL (0.04-0.36); Hematocrit 31.9 % (34.1-44.9); Hemoglobin 10.5 g/dL (11.2-15.7); IMMATURE GRAN # 0.08 x10^3u/L (0.001-0.031); IMMATURE GRAN % 0.8 % (0.001-0.429); Lymphocyte (Absolute #) 1.36 x10^3/uL (1.18-3.74); Lymphocytes % 12.8 % (19.3-51.7); Mean Cell Volume 94.4 fL (79.4-94.8); Mean Corpuscular Hemoglobin 31.1 pg (25.6-32.2); Mean Corpuscular Hgb Concent. 32.9 g/dL (32.2-35.5); Mean Platelet Volume 9.8 fL (9.4-12.3); Monocyte (Absolute #) 0.63 x10^3/uL (0.24-0.86); Monocytes % 5.9 % (4.7-12.5); Neutrophil % 79.9 % (34.0-71.1); Platelet Count 178 x10^3/uL (182-369); Red Blood Count 3.38 x10^6/uL (3.93-5.22); Red Cell Distribution Width 13.9 % (11.7-14.4); White Blood Count 10.6 x10^3/uL (3.98-10.04)
[2024-01-31 11:58] LABS: VBG BASE EXCESS 3.5 (-2.0-2.0); VBG CARBOXYHEMOGLOBIN 1.5 % T HGB (0.0-6.9); VBG HCO3- 27.8 meq/L (22-28); VBG HEMOGLOBIN 11.1; VBG O2 SATURATION 45.2 (95-100); VBG POTASSIUM 2.9 (3.5-5.1); VBG pH 7.45 (7.32-7.42)
--- NOTE | 2024-01-31 12:00 | XRAY ---
Indication: Weakness. Slurred speech. Multiple contiguous axial images obtained through the head without contrast. Comparison: September 05, 2022 Again age-appropriate global atrophy, mild periventricular degenerative micro-ischemia bilaterally, and remote lacunar infarcts left external capsule. New tiny remote lacunar infarct right external capsule. No acute intracranial hemorrhage, abnormal extra-axial fluid collection, or mass effect. Fourth ventricle is midline without hydrocephalus. Bony calvarium intact. Visualized paranasal sinuses and mastoid air cells are clear. 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
[2024-01-31 12:13] LABS: INR 0.94 (0.8-3.0); PROTIME 10.3 SECONDS (9.4-12.5); PTT 27.1 SECONDS (25.1-36.5)
[2024-01-31 12:22] LABS: Potassium 2.8 mmol/L (3.5-5.1)
[2024-01-31] MEDS ORDERED: Sodium Chloride 0.9% 1000 ML 1,000 ML ONE (12:51)
[2024-01-31 13:17] LABS: ALKALINE PHOSPHATASE 78 U/L (38-126); ANION GAP 10.9 MEQ/L (5-15); BLOOD UREA NITROGEN 21 mg/dL (7-17); CHLORIDE 107 mmol/L (98-107); Calcium 10.2 mg/dL (8.4-10.2); Carbon Dioxide 25 mmol/L (22-30); Cholesterol 202 mg/dL (50-200); Creatinine 1 1.03 mg/dL (0.52-1.04); EST GLOMERULAR FILTRATION RATE 55.3 ML/MIN; Folate (Folic Acid) > 16.6 ng/mL (2.76 - >20); Glucose 167 mg/dL (74-106); HDL CHOLESTEROL 49 mg/dL (40-60); LDL, DIRECT 106 mg/dL (30-100); SGOT/AST 21 U/L (14-36); SGPT/ALT 15 U/L (0-35); SODIUM 140 mmol/L (135-145); TRIGLYCERIDE 169 mg/dL (30-150); TSH, 3RD Generation 1.996 mIU/L (0.470-4.680); Total Protein 7.6 g/dL (6.3-8.2); Vitamin B12 787 pg/mL (239-931)
[2024-01-31] MEDS: POTASSIUM CHLORIDE 20 mEq IN WATER 100ML 20 MEQ/100 ML BAG IV SCH (13:33)
[2024-01-31] MEDS: Sodium Chloride 0.9% 1000 ML 1,000 ML IV SCH (13:34)
--- NOTE | 2024-01-31 14:46 | PCM.HP ---
History of Present Illness - Chief Complaint Chief Complaint: hypokalemia/aphasia Date: 01/31/24 History of Present Illness: is a 78 year old female with a pmhx of HTN, HLD, HI, GERD, and OA who presented to ED 01/31/24 with a month history of unsteady gait and most recently aphasia and forgetfullness. Her niece is present during interview and endorses that over the past month patient has been experiencing progressive weakness, unsteady gait, and having troubles with recall and appointments. Today patient was having lunch with her friends and began to experience aphasia and staring off. Patient is cooperative and appropriately follows instructions during exam. The patient is alert and orientated to person, place, month and day of her , and the president. She did have trouble recalling her year of and the present year. Speech is clear; affect and facial expressions are appropriate to situation. No motor deficits are noted, with upper and lower extremity muscle strength 5/5 bilaterally. Sensation intact bilaterally to light touch. Patient denies headaches, dizziness, visual disturbances, numbness, or tingling. She does report diarrhea the past three days with > 3 episodes per day. She denies nausea, vomiting, fever, CP, or abdominal pain. Oral intake has been poor for several weeks. In ED, vitals are stable. EKG NS with no ST elevation/deviation. 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 Lab findings with mild leukocytosis, normocytic anemia, mild thrombocytopenia, hyperlipidemia, and hypokalemia. Patient received potassium and droperidol in ED. Plan for MRI Brain w/o contrast. Neuro consult. Potassium replacement. - Review of Systems Constitutional: Weakness Eyes: No Symptoms Ears, Nose, & Throat: No Symptoms Respiratory: No Symptoms Cardiac: No Symptoms Abdominal/Gastrointestinal: Diarrhea, Appetite Changes Genitourinary Symptoms: No Symptoms Musculoskeletal: No Symptoms Skin: No Symptoms Neurological: Speech Changes Psychological: Memory Loss Endocrine: No Symptoms Hematologic/Lymphatic: Anemia Immunological/Allergic: No Symptoms Medications & Allergies Home Medications: Home Medication List Citalopram Hydrobromide [Celexa] 10 mg PO DAILY 05/19/17 [History Confirmed 09/05/22] Ergocalciferol (Vitamin D2) [Vitamin D] 50,000 unit PO DAILY 05/19/17 [History Confirmed 09/05/22] Metoprolol Succinate 25 mg PO DAILY 05/19/17 [History Confirmed 09/05/22] Oxybutynin Chloride [Oxybutynin Chloride ER] 5 mg PO TID 05/19/17 [History Confirmed 09/05/22] Pravastatin Sodium [Pravachol] 40 mg PO HS 05/19/17 [History Confirmed 09/05/22] Travorpost Ophth [Travatan 0.004% Opth Gena] 2.5 ml OP HS 05/19/17 [History Confirmed 09/05/22] Aspirin EC 81 mg [Ecotrin 81 mg] 81 mg PO DAILY 09/05/22 [History Confirmed 09/05/22] Bumetanide 1 mg [Bumex 1 mg] 1 mg PO DAILY 09/05/22 [History Confirmed 09/05/22] Buspirone HCl 5 mg [Buspar 5 mg] 10 mg PO TID 09/05/22 [History Confirmed 09/05/22] Gabapentin [Neurontin ] 300 mg PO BID 09/05/22 [History Confirmed 09/05/22] Hydrochlorothiazide 25 mg [hydroDIURIL 25 MG] 12.5 mg PO DAILY 09/05/22 [History Confirmed 09/05/22] Lisinopril 10 mg [Zestril 10 MG] 10 mg PO DAILY 09/05/22 [History Confirmed 09/05/22] Polyethylene Glycol 3350 [Miralax] 17 gm PO BID 09/05/22 [History Confirmed 09/05/22] Tramadol HCl 50 mg [Ultram 50 mg] 50 mg PO DAILY PRN 09/05/22 [History Confirmed 09/05/22] Trazodone HCl 50 mg [Desyrel 50 mg] 50 mg PO HS 09/05/22 [History Confirmed 09/05/22] Trimethoprim 100 mg PO BID 09/05/22 [History Confirmed 09/05/22] Famotidine [Pepcid] 40 mg PO DAILY 30 Days #30 tablet 09/10/22 [Rx] PANTOPRAZOLE 40 mg Tablet [Protonix 40MG Tablet] 40 mg PO QAM 30 Days #30 tab 09/10/22 [Rx] Sucralfate 1 gm [Carafate 1 GM] 1 g PO ACHS 30 Days #120 tablet 09/10/22 [Rx] Allergies/Adverse Reactions: Allergies Allergy/AdvReac Type Severity Reaction Status Date / Time No Known Drug Allergies Allergy Verified 01/31/24 11:32 - Past Medical History Past Medical History: Yes Neurological History: No Pertinent History ENT History: Cataracts, Macular Degeneration Cardiac History: High Cholesterol, Hypertension, Myocardial Infarction (HI) Respiratory History: No Pertinent History Endocrine Medical History: No Pertinent History Musculoskelatal History: Osteoarthritis GI Medical History: GERD, Gallbladder Disease History: Other Pyscho-Social History: Depression Reproductive Disorders: Other Comment: R Knee replacement, Heart attack in 2017 - Past Surgical History Past Surgical History: Yes Neuro Surgical History: No Pertinent History Cardiac History: Cardiac Catheterization Respiratory Surgery: No Pertinent History GI Surgical History: Cholecystectomy Genitourinary Surgical Hx: Other Musculskeletal Surgical Hx: Joint Replacement, Other Female Surgical History: Lumpectomy Other Surgical History: bladder tie up in 2017, left breast lumpectomy, satish eye inj.for degenerative, Right hip repair, Right knee replacement x two, hand surgery - Social History Smoking Status: Never smoker Exposure to second hand smoke: No Alcohol: None Drug Use: none - Social Determinants of Health Will the patient participate in the screening: Declined to provide - Physical Exam Vital Signs: Vital Signs - 24 hr Temp Pulse Resp BP BP Pulse Ox 01/31/24 13:30 71 24 131/66 98 01/31/24 13:00 67 20 135/62 97 01/31/24 12:30 71 23 139/57 97 01/31/24 12:01 78 19 137/56 98 01/31/24 11:49 98.2 F 79 18 138/66 97 General Appearance: no apparent distress Neurologic Exam: alert, cooperative, normal mood/affect, confusion, aphasia, other (oriented to place, self, president - unable to recall year/ full ) Eye Exam: PERRL/EOMI Ears, Nose, Throat Exam: normal ENT inspection Neck Exam: normal inspection, full range of motion Respiratory Exam: normal breath sounds, lungs clear Cardiovascular Exam: regular rate/rhythm, normal heart sounds Back Exam: normal inspection Extremity Exam: normal inspection, other (5/5 strength BUE/BLE) Skin Exam: normal color Results - Labs Lab/Micro Results: Lab Results-Last 24 Hours 01/31/24 01/31/24 01/31/24 Range/Units 11:31 11:55 11:55 WBC 10.6 H (3.98-10.04) x10^3/uL RBC 3.38 L (3.93-5.22) x10^6/uL Hgb 10.5 L (11.2-15.7) g/dL Hct 31.9 L (34.1-44.9) % MCV 94.4 (79.4-94.8) fL MCH 31.1 (25.6-32.2) pg MCHC 32.9 (32.2-35.5) g/dL RDW 13.9 (11.7-14.4) % Plt Count 178 L (182-369) x10^3/uL MPV 9.8 (9.4-12.3) fL Gran % 79.9 H (34.0-71.1) % Immature Gran % (Auto) 0.8 H (0.001-0.429) % Nucleat RBC Rel Count 0.0 (0.00-0.2) % Eos # (Auto) 0.03 L (0.04-0.36) x10^3/uL Immature Gran # (Auto) 0.08 H (0.001-0.031) x10^3u/L Absolute Lymphs (auto) 1.36 (1.18-3.74) x10^3/uL Absolute Monos (auto) 0.63 (0.24-0.86) x10^3/uL Absolute Nucleated RBC 0.00 (0.00-0.012) x10^3u/L Lymphocytes % 12.8 L (19.3-51.7) % Monocytes % 5.9 (4.7-12.5) % Eosinophils % 0.3 L (0.7-5.8) % Basophils % 0.3 (0.1-1.2) % Absolute Granulocytes 8.50 H (1.56-6.13) x10^3/uL Basophils # 0.03 (0.01-0.08) x10^3/uL PT (9.4-12.5) SECONDS INR (0.8-3.0) APTT (25.1-36.5) SECONDS pO2/FiO2 Ratio % VBG pH (7.32-7.42) VBG pCO2 at Pat Temp (42-55) mm/Hg VBG pO2 at Pat Temp (25-40) mm/Hg VBG HCO3 (22-28) meq/L VBG O2 Sat (Pankaj) (95-100) VBG Base Excess (-2.0-2.0) VBG Hemoglobin VBG Carboxyhemoglobin (0.0-6.9) % T HGB POC Potassium (3.5-5.1) Sodium 140 (135-145) mmol/L Potassium 2.8 L* (3.5-5.1) mmol/L Chloride 107 (98-107) mmol/L Carbon Dioxide 25 (22-30) mmol/L Anion Gap 10.9 (5-15) MEQ/L BUN 21 H (7-17) mg/dL Creatinine 1.03 (0.52-1.04) mg/dL Estimated GFR 55.3 ML/MIN Glucose 167 H (74-106) mg/dL Hemoglobin A1c (4.5-6.0) % Lactic Acid 1.6 (0.4-2.0) Calcium 10.2 (8.4-10.2) mg/dL Total Bilirubin 0.60 (0.2-1.3) mg/dL AST 21 (14-36) U/L ALT 15 (0-35) U/L Alkaline Phosphatase 78 (38-126) U/L Ammonia (9-30) umol/L Troponin I (0.000-0.033) ng/mL Serum Total Protein 7.6 (6.3-8.2) g/dL Albumin 4.0 (3.5-5.0) g/dL Triglycerides 169 H (30-150) mg/dL Cholesterol 202 H (50-200) mg/dL LDL Cholesterol 106 H (30-100) mg/dL HDL Cholesterol 49 (40-60) mg/dL Heart Disease Risk Ratio 4.0 Vitamin B12 787 (239-931) pg/mL Folic Acid > 16.6 (2.76 - >20) ng/mL TSH 3rd Generation 1.996 (0.470-4.680) mIU/L 01/31/24 01/31/24 01/31/24 Range/Units 11:55 11:55 11:55 WBC (3.98-10.04) x10^3/uL RBC (3.93-5.22) x10^6/uL Hgb (11.2-15.7) g/dL Hct (34.1-44.9) % MCV (79.4-94.8) fL MCH (25.6-32.2) pg MCHC (32.2-35.5) g/dL RDW (11.7-14.4) % Plt Count (182-369) x10^3/uL MPV (9.4-12.3) fL Gran % (34.0-71.1) % Immature Gran % (Auto) (0.001-0.429) % Nucleat RBC Rel Count (0.00-0.2) % Eos # (Auto) (0.04-0.36) x10^3/uL Immature Gran # (Auto) (0.001-0.031) x10^3u/L Absolute Lymphs (auto) (1.18-3.74) x10^3/uL Absolute Monos (auto) (0.24-0.86) x10^3/uL Absolute Nucleated RBC (0.00-0.012) x10^3u/L Lymphocytes % (19.3-51.7) % Monocytes % (4.7-12.5) % Eosinophils % (0.7-5.8) % Basophils % (0.1-1.2) % Absolute Granulocytes (1.56-6.13) x10^3/uL Basophils # (0.01-0.08) x10^3/uL PT 10.3 (9.4-12.5) SECONDS INR 0.94 (0.8-3.0) APTT 27.1 (25.1-36.5) SECONDS pO2/FiO2 Ratio 21.0 % VBG pH 7.45 H (7.32-7.42) VBG pCO2 at Pat Temp 40 L (42-55) mm/Hg VBG pO2 at Pat Temp 27 (25-40) mm/Hg VBG HCO3 27.8 (22-28) meq/L VBG O2 Sat (Pankaj) 45.2 L (95-100) VBG Base Excess 3.5 H (-2.0-2.0) VBG Hemoglobin 11.1 VBG Carboxyhemoglobin 1.5 (0.0-6.9) % T HGB POC Potassium 2.9 L* (3.5-5.1) Sodium (135-145) mmol/L Potassium (3.5-5.1) mmol/L Chloride (98-107) mmol/L Carbon Dioxide (22-30) mmol/L Anion Gap (5-15) MEQ/L BUN (7-17) mg/dL Creatinine (0.52-1.04) mg/dL Estimated GFR ML/MIN Glucose (74-106) mg/dL Hemoglobin A1c (4.5-6.0) % Lactic Acid (0.4-2.0) Calcium (8.4-10.2) mg/dL Total Bilirubin (0.2-1.3) mg/dL AST (14-36) U/L ALT (0-35) U/L Alkaline Phosphatase (38-126) U/L Ammonia < 9 L (9-30) umol/L Troponin I (0.000-0.033) ng/mL Serum Total Protein (6.3-8.2) g/dL Albumin (3.5-5.0) g/dL Triglycerides (30-150) mg/dL Cholesterol (50-200) mg/dL LDL Cholesterol (30-100) mg/dL HDL Cholesterol (40-60) mg/dL Heart Disease Risk Ratio Vitamin B12 (239-931) pg/mL Folic Acid (2.76 - >20) ng/mL TSH 3rd Generation (0.470-4.680) mIU/L 01/31/24 01/31/24 Range/Units 11:55 11:55 WBC (3.98-10.04) x10^3/uL RBC (3.93-5.22) x10^6/uL Hgb (11.2-15.7) g/dL Hct (34.1-44.9) % MCV (79.4-94.8) fL MCH (25.6-32.2) pg MCHC (32.2-35.5) g/dL RDW (11.7-14.4) % Plt Count (182-369) x10^3/uL MPV (9.4-12.3) fL Gran % (34.0-71.1) % Immature Gran % (Auto) (0.001-0.429) % Nucleat RBC Rel Count (0.00-0.2) % Eos # (Auto) (0.04-0.36) x10^3/uL Immature Gran # (Auto) (0.001-0.031) x10^3u/L Absolute Lymphs (auto) (1.18-3.74) x10^3/uL Absolute Monos (auto) (0.24-0.86) x10^3/uL Absolute Nucleated RBC (0.00-0.012) x10^3u/L Lymphocytes % (19.3-51.7) % Monocytes % (4.7-12.5) % Eosinophils % (0.7-5.8) % Basophils % (0.1-1.2) % Absolute Granulocytes (1.56-6.13) x10^3/uL Basophils # (0.01-0.08) x10^3/uL PT (9.4-12.5) SECONDS INR (0.8-3.0) APTT (25.1-36.5) SECONDS pO2/FiO2 Ratio % VBG pH (7.32-7.42) VBG pCO2 at Pat Temp (42-55) mm/Hg VBG pO2 at Pat Temp (25-40) mm/Hg VBG HCO3 (22-28) meq/L VBG O2 Sat (Pankaj) (95-100) VBG Base Excess (-2.0-2.0) VBG Hemoglobin VBG Carboxyhemoglobin (0.0-6.9) % T HGB POC Potassium (3.5-5.1) Sodium (135-145) mmol/L Potassium (3.5-5.1) mmol/L Chloride (98-107) mmol/L Carbon Dioxide (22-30) mmol/L Anion Gap (5-15) MEQ/L BUN (7-17) mg/dL Creatinine (0.52-1.04) mg/dL Estimated GFR ML/MIN Glucose (74-106) mg/dL Hemoglobin A1c 5.58 (4.5-6.0) % Lactic Acid (0.4-2.0) Calcium (8.4-10.2) mg/dL Total Bilirubin (0.2-1.3) mg/dL AST (14-36) U/L ALT (0-35) U/L Alkaline Phosphatase (38-126) U/L Ammonia (9-30) umol/L Troponin I < 0.012 (0.000-0.033) ng/mL Serum Total Protein (6.3-8.2) g/dL Albumin (3.5-5.0) g/dL Triglycerides (30-150) mg/dL Cholesterol (50-200) mg/dL LDL Cholesterol (30-100) mg/dL HDL Cholesterol (40-60) mg/dL Heart Disease Risk Ratio Vitamin B12 (239-931) pg/mL Folic Acid (2.76 - >20) ng/mL TSH 3rd Generation (0.470-4.680) mIU/L - Radiology Impressions Radiology Exams & Impressions: Radiology Procedures Category Date Time Status HEAD WITHOUT CONTRAST [CT] Stat Exams 01/31/24 11:30 Completed Assessment/Plan (1) Hypokalemia Current Visit: Yes Status: Acute Assessment & Plan: -labs reviewed, initial potassium level at 2.8, most likely secondary to poor oral intake/diarrhea -Will review meds when updated -tele -replenish potassium per protocol Code(s): E87.6 - HYPOKALEMIA (2) Leukocytosis Current Visit: Yes Status: Acute Assessment & Plan: -mild with wbc at 10.6 -LA WNL -UA ordered and pending collection -will continue to monitor and trend Code(s): D72.829 - ELEVATED WHITE BLOOD CELL COUNT, UNSPECIFIED (3) Aphasia Current Visit: Yes Status: Acute Assessment & Plan: -CT head demonstrating 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 - no acute findings -neuro consult, appreciate recs -MRI brain w/o contrast -ammonia, b12/fol, tsh all wnl Code(s): R47.01 - APHASIA (4) Unsteady gait Current Visit: Yes Status: Acute Assessment & Plan: -PT/OT -see plan for aphasia Code(s): R26.81 - UNSTEADINESS ON FEET (5) HTN (hypertension) Current Visit: Yes Status: Acute Assessment & Plan: -stable, will continue to monitor, resume home meds Code(s): I10 - ESSENTIAL (PRIMARY) HYPERTENSION (6) HLD (hyperlipidemia) Current Visit: Yes Status: Acute Assessment & Plan: -Labs reviewed - trig 162, tot chol 202, LDL chol at 106 - continue statin Code(s): E78.5 - HYPERLIPIDEMIA, UNSPECIFIED (7) Diarrhea Current Visit: Yes Status: Acute Assessment & Plan: -Stools for CDiff, culture, O&P, Giardia Code(s): R19.7 - DIARRHEA, UNSPECIFIED (8) Anemia Current Visit: Yes Status: Acute Assessment & Plan: -normocytic -appears chronic, stable -iron profile, b12/fol VTE: bilateral scd PPI: Pepcid Dispo: 1-2 days Code Status: Full code Code(s): D64.9 - ANEMIA, UNSPECIFIED Telemedicine Encounter - Telemedicine Encounter Telemedicine Encounter: The entirety of this encounter was performed via Telemedicine"
[2024-01-31 16:44] LABS: MAGNESIUM 1.9 mg/dL (1.6-2.3); TROPONIN < 0.012 ng/mL (0.000-0.033)
[2024-01-31 17:05] LABS: Iron 30 ug/dL (37-170); Iron Saturation 15 % (20-39); TIBC 197 ug/dL (265-462)
--- NOTE | 2024-01-31 17:52 | PCM.CONS ---
History of Present Illness - Date of Consult Date of Encounter: 01/31/24 Consulting Provider: ALBINA HUSTON MD Requesting Provider: Attending Provider: CLIVE MEADE MD Primary Care Provider: PCP: CHRISTOPHER HERNADEZ MD Encounter: "The entirety of this encounter was performed via Telemedicine using audio and visual " - Reason for Consult cc:: The requesting physician will be sent a copy of the consult. Medications & Allergies Home Medications: Home Medication List Citalopram Hydrobromide [Celexa] 10 mg PO DAILY 05/19/17 [History Confirmed 01/31/24] Metoprolol Succinate 25 mg PO DAILY 05/19/17 [History Confirmed 01/31/24] Oxybutynin Chloride [Oxybutynin Chloride ER] 5 mg PO TID 05/19/17 [History Confirmed 01/31/24] Pravastatin Sodium [Pravachol] 40 mg PO HS 05/19/17 [History Confirmed 01/31/24] Travorpost Ophth [Travatan 0.004% Opth Gena] 2.5 ml OP HS 05/19/17 [History Confirmed 01/31/24] Aspirin EC 81 mg [Ecotrin 81 mg] 81 mg PO DAILY 09/05/22 [History Confirmed 01/31/24] Bumetanide 1 mg [Bumex 1 mg] 1 mg PO DAILY 09/05/22 [History Confirmed 01/31/24] Buspirone HCl 5 mg [Buspar 5 mg] 10 mg PO TID 09/05/22 [History Confirmed 01/31/24] Gabapentin [Neurontin ] 400 mg PO TID 09/05/22 [History Confirmed 01/31/24] Tramadol HCl 50 mg [Ultram 50 mg] 50 mg PO [id number] PRN 09/05/22 [History Confirmed 01/31/24] Trazodone HCl 50 mg [Desyrel 50 mg] 75 mg PO HS 09/05/22 [History Confirmed 01/31/24] Trimethoprim 100 mg PO DAILY 09/05/22 [History Confirmed 01/31/24] Famotidine [Pepcid] 40 mg PO DAILY 30 Days #30 tablet 09/10/22 [Rx Confirmed 01/31/24] PANTOPRAZOLE 40 mg Tablet [Protonix 40MG Tablet] 40 mg PO QAM 30 Days #30 tab 09/10/22 [Rx Confirmed 01/31/24] Losartan Potassium 50 mg [Cozaar 50 MG] 50 mg PO DAILY 01/31/24 [History Confirmed 01/31/24] Non-Formulary Drug [Non-Formulary Bulk Item] 1 tab PO TID 01/31/24 [History Confirmed 01/31/24] Allergies/Adverse Reactions: Allergies Allergy/AdvReac Type Severity Reaction Status Date / Time No Known Drug Allergies Allergy Verified 01/31/24 11:32 - Past Medical History Past Medical History: Yes Neurological History: No Pertinent History ENT History: Cataracts, Macular Degeneration Cardiac History: High Cholesterol, Hypertension, Myocardial Infarction ([place]) Respiratory History: No Pertinent History Endocrine Medical History: No Pertinent History Musculoskelatal History: Osteoarthritis GI Medical History: GERD, Gallbladder Disease History: Other Pyscho-Social History: Depression Reproductive Disorders: Other Comment: R Knee replacement, Heart attack in 2017 - Past Surgical History Past Surgical History: Yes Neuro Surgical History: No Pertinent History Cardiac History: Cardiac Catheterization Respiratory Surgery: No Pertinent History GI Surgical History: Cholecystectomy Genitourinary Surgical Hx: Other Musculskeletal Surgical Hx: Joint Replacement, Other Female Surgical History: Lumpectomy Other Surgical History: bladder tie up in 2017, left breast lumpectomy, satish eye inj.for degenerative, Right hip repair, Right knee replacement x two, hand surgery - Social History Smoking Status: Never smoker Exposure to second hand smoke: No Alcohol: None Drug Use: none - Social Determinants of Health Will the patient participate in the screening: Declined to provide Do you worry about a steady place to live?: No Do you have any problems with any of the following?: No known problems In the past 12 months,have you had to go without utilities?: No Have you or anyone in your house had to go without enough: No Transportation Issues: No Has anyone in your support network made you feel unsafe?: No Does the patient want assistance with any of the above?: No - Physical Exam Vital Signs: Vital Signs - 24 hr Temp Pulse Resp BP BP Pulse Ox 01/31/24 16:00 98.2 F 68 20 186/77 94 L 01/31/24 15:09 66 01/31/24 14:27 98.9 F 62 18 171/72 99 01/31/24 13:30 71 24 131/66 98 01/31/24 13:00 67 20 135/62 97 01/31/24 12:30 71 23 139/57 97 01/31/24 12:01 78 19 137/56 98 01/31/24 11:49 98.2 F 79 18 138/66 97 Results - Labs Lab/Micro Results: Lab Results-Last 24 Hours 01/31/24 01/31/24 01/31/24 Range/Units 11:31 11:55 11:55 WBC 10.6 H (3.98-10.04) x10^3/uL RBC 3.38 L (3.93-5.22) x10^6/uL Hgb 10.5 L (11.2-15.7) g/dL Hct 31.9 L (34.1-44.9) % MCV 94.4 (79.4-94.8) fL MCH 31.1 (25.6-32.2) pg MCHC 32.9 (32.2-35.5) g/dL RDW 13.9 (11.7-14.4) % Plt Count 178 L (182-369) x10^3/uL MPV 9.8 (9.4-12.3) fL Gran % 79.9 H (34.0-71.1) % Immature Gran % (Auto) 0.8 H (0.001-0.429) % Nucleat RBC Rel Count 0.0 (0.00-0.2) % Eos # (Auto) 0.03 L (0.04-0.36) x10^3/uL Immature Gran # (Auto) 0.08 H (0.001-0.031) x10^3u/L Absolute Lymphs (auto) 1.36 (1.18-3.74) x10^3/uL Absolute Monos (auto) 0.63 (0.24-0.86) x10^3/uL Absolute Nucleated RBC 0.00 (0.00-0.012) x10^3u/L Lymphocytes % 12.8 L (19.3-51.7) % Monocytes % 5.9 (4.7-12.5) % Eosinophils % 0.3 L (0.7-5.8) % Basophils % 0.3 (0.1-1.2) % Absolute Granulocytes 8.50 H (1.56-6.13) x10^3/uL Basophils # 0.03 (0.01-0.08) x10^3/uL PT (9.4-12.5) SECONDS INR (0.8-3.0) APTT (25.1-36.5) SECONDS pO2/FiO2 Ratio % VBG pH (7.32-7.42) VBG pCO2 at Pat Temp (42-55) mm/Hg VBG pO2 at Pat Temp (25-40) mm/Hg VBG HCO3 (22-28) meq/L VBG O2 Sat (Pankaj) (95-100) VBG Base Excess (-2.0-2.0) VBG Hemoglobin VBG Carboxyhemoglobin (0.0-6.9) % T HGB POC Potassium (3.5-5.1) Sodium 140 (135-145) mmol/L Potassium 2.8 L* (3.5-5.1) mmol/L Chloride 107 (98-107) mmol/L Carbon Dioxide 25 (22-30) mmol/L Anion Gap 10.9 (5-15) MEQ/L BUN 21 H (7-17) mg/dL Creatinine 1.03 (0.52-1.04) mg/dL Estimated GFR 55.3 ML/MIN Glucose 167 H (74-106) mg/dL Hemoglobin A1c (4.5-6.0) % Lactic Acid 1.6 (0.4-2.0) Calcium 10.2 (8.4-10.2) mg/dL Magnesium (1.6-2.3) mg/dL Iron (37-170) ug/dL TIBC (265-462) ug/dL Iron Saturation (20-39) % Ferritin (11.1-264) ng/mL Total Bilirubin 0.60 (0.2-1.3) mg/dL AST 21 (14-36) U/L ALT 15 (0-35) U/L Alkaline Phosphatase 78 (38-126) U/L Ammonia (9-30) umol/L Troponin I (0.000-0.033) ng/mL Serum Total Protein 7.6 (6.3-8.2) g/dL Albumin 4.0 (3.5-5.0) g/dL Triglycerides 169 H (30-150) mg/dL Cholesterol 202 H (50-200) mg/dL LDL Cholesterol 106 H (30-100) mg/dL HDL Cholesterol 49 (40-60) mg/dL Heart Disease Risk Ratio 4.0 Vitamin B12 787 (239-931) pg/mL Folic Acid > 16.6 (2.76 - >20) ng/mL TSH 3rd Generation 1.996 (0.470-4.680) mIU/L 01/31/24 01/31/24 01/31/24 Range/Units 11:55 11:55 11:55 WBC (3.98-10.04) x10^3/uL RBC (3.93-5.22) x10^6/uL Hgb (11.2-15.7) g/dL Hct (34.1-44.9) % MCV (79.4-94.8) fL MCH (25.6-32.2) pg MCHC (32.2-35.5) g/dL RDW (11.7-14.4) % Plt Count (182-369) x10^3/uL MPV (9.4-12.3) fL Gran % (34.0-71.1) % Immature Gran % (Auto) (0.001-0.429) % Nucleat RBC Rel Count (0.00-0.2) % Eos # (Auto) (0.04-0.36) x10^3/uL Immature Gran # (Auto) (0.001-0.031) x10^3u/L Absolute Lymphs (auto) (1.18-3.74) x10^3/uL Absolute Monos (auto) (0.24-0.86) x10^3/uL Absolute Nucleated RBC (0.00-0.012) x10^3u/L Lymphocytes % (19.3-51.7) % Monocytes % (4.7-12.5) % Eosinophils % (0.7-5.8) % Basophils % (0.1-1.2) % Absolute Granulocytes (1.56-6.13) x10^3/uL Basophils # (0.01-0.08) x10^3/uL PT 10.3 (9.4-12.5) SECONDS INR 0.94 (0.8-3.0) APTT 27.1 (25.1-36.5) SECONDS pO2/FiO2 Ratio 21.0 % VBG pH 7.45 H (7.32-7.42) VBG pCO2 at Pat Temp 40 L (42-55) mm/Hg VBG pO2 at Pat Temp 27 (25-40) mm/Hg VBG HCO3 27.8 (22-28) meq/L VBG O2 Sat (Pankaj) 45.2 L (95-100) VBG Base Excess 3.5 H (-2.0-2.0) VBG Hemoglobin 11.1 VBG Carboxyhemoglobin 1.5 (0.0-6.9) % T HGB POC Potassium 2.9 L* (3.5-5.1) Sodium (135-145) mmol/L Potassium (3.5-5.1) mmol/L Chloride (98-107) mmol/L Carbon Dioxide (22-30) mmol/L Anion Gap (5-15) MEQ/L BUN (7-17) mg/dL Creatinine (0.52-1.04) mg/dL Estimated GFR ML/MIN Glucose (74-106) mg/dL Hemoglobin A1c (4.5-6.0) % Lactic Acid (0.4-2.0) Calcium (8.4-10.2) mg/dL Magnesium (1.6-2.3) mg/dL Iron (37-170) ug/dL TIBC (265-462) ug/dL Iron Saturation (20-39) % Ferritin (11.1-264) ng/mL Total Bilirubin (0.2-1.3) mg/dL AST (14-36) U/L ALT (0-35) U/L Alkaline Phosphatase (38-126) U/L Ammonia < 9 L (9-30) umol/L Troponin I (0.000-0.033) ng/mL Serum Total Protein (6.3-8.2) g/dL Albumin (3.5-5.0) g/dL Triglycerides (30-150) mg/dL Cholesterol (50-200) mg/dL LDL Cholesterol (30-100) mg/dL HDL Cholesterol (40-60) mg/dL Heart Disease Risk Ratio Vitamin B12 (239-931) pg/mL Folic Acid (2.76 - >20) ng/mL TSH 3rd Generation (0.470-4.680) mIU/L 01/31/24 01/31/24 01/31/24 Range/Units 11:55 11:55 16:10 WBC (3.98-10.04) x10^3/uL RBC (3.93-5.22) x10^6/uL Hgb (11.2-15.7) g/dL Hct (34.1-44.9) % MCV (79.4-94.8) fL MCH (25.6-32.2) pg MCHC (32.2-35.5) g/dL RDW (11.7-14.4) % Plt Count (182-369) x10^3/uL MPV (9.4-12.3) fL Gran % (34.0-71.1) % Immature Gran % (Auto) (0.001-0.429) % Nucleat RBC Rel Count (0.00-0.2) % Eos # (Auto) (0.04-0.36) x10^3/uL Immature Gran # (Auto) (0.001-0.031) x10^3u/L Absolute Lymphs (auto) (1.18-3.74) x10^3/uL Absolute Monos (auto) (0.24-0.86) x10^3/uL Absolute Nucleated RBC (0.00-0.012) x10^3u/L Lymphocytes % (19.3-51.7) % Monocytes % (4.7-12.5) % Eosinophils % (0.7-5.8) % Basophils % (0.1-1.2) % Absolute Granulocytes (1.56-6.13) x10^3/uL Basophils # (0.01-0.08) x10^3/uL PT (9.4-12.5) SECONDS INR (0.8-3.0) APTT (25.1-36.5) SECONDS pO2/FiO2 Ratio % VBG pH (7.32-7.42) VBG pCO2 at Pat Temp (42-55) mm/Hg VBG pO2 at Pat Temp (25-40) mm/Hg VBG HCO3 (22-28) meq/L VBG O2 Sat (Pankaj) (95-100) VBG Base Excess (-2.0-2.0) VBG Hemoglobin VBG Carboxyhemoglobin (0.0-6.9) % T HGB POC Potassium (3.5-5.1) Sodium (135-145) mmol/L Potassium (3.5-5.1) mmol/L Chloride (98-107) mmol/L Carbon Dioxide (22-30) mmol/L Anion Gap (5-15) MEQ/L BUN (7-17) mg/dL Creatinine (0.52-1.04) mg/dL Estimated GFR ML/MIN Glucose (74-106) mg/dL Hemoglobin A1c 5.58 (4.5-6.0) % Lactic Acid (0.4-2.0) Calcium (8.4-10.2) mg/dL Magnesium 1.9 (1.6-2.3) mg/dL Iron (37-170) ug/dL TIBC (265-462) ug/dL Iron Saturation (20-39) % Ferritin (11.1-264) ng/mL Total Bilirubin (0.2-1.3) mg/dL AST (14-36) U/L ALT (0-35) U/L Alkaline Phosphatase (38-126) U/L Ammonia (9-30) umol/L Troponin I < 0.012 < 0.012 (0.000-0.033) ng/mL Serum Total Protein (6.3-8.2) g/dL Albumin (3.5-5.0) g/dL Triglycerides (30-150) mg/dL Cholesterol (50-200) mg/dL LDL Cholesterol (30-100) mg/dL HDL Cholesterol (40-60) mg/dL Heart Disease Risk Ratio Vitamin B12 (239-931) pg/mL Folic Acid (2.76 - >20) ng/mL TSH 3rd Generation (0.470-4.680) mIU/L 01/31/24 01/31/24 Range/Units 16:10 16:10 WBC (3.98-10.04) x10^3/uL RBC (3.93-5.22) x10^6/uL Hgb (11.2-15.7) g/dL Hct (34.1-44.9) % MCV (79.4-94.8) fL MCH (25.6-32.2) pg MCHC (32.2-35.5) g/dL RDW (11.7-14.4) % Plt Count (182-369) x10^3/uL MPV (9.4-12.3) fL Gran % (34.0-71.1) % Immature Gran % (Auto) (0.001-0.429) % Nucleat RBC Rel Count (0.00-0.2) % Eos # (Auto) (0.04-0.36) x10^3/uL Immature Gran # (Auto) (0.001-0.031) x10^3u/L Absolute Lymphs (auto) (1.18-3.74) x10^3/uL Absolute Monos (auto) (0.24-0.86) x10^3/uL Absolute Nucleated RBC (0.00-0.012) x10^3u/L Lymphocytes % (19.3-51.7) % Monocytes % (4.7-12.5) % Eosinophils % (0.7-5.8) % Basophils % (0.1-1.2) % Absolute Granulocytes (1.56-6.13) x10^3/uL Basophils # (0.01-0.08) x10^3/uL PT (9.4-12.5) SECONDS INR (0.8-3.0) APTT (25.1-36.5) SECONDS pO2/FiO2 Ratio % VBG pH (7.32-7.42) VBG pCO2 at Pat Temp (42-55) mm/Hg VBG pO2 at Pat Temp (25-40) mm/Hg VBG HCO3 (22-28) meq/L VBG O2 Sat (Pankaj) (95-100) VBG Base Excess (-2.0-2.0) VBG Hemoglobin VBG Carboxyhemoglobin (0.0-6.9) % T HGB POC Potassium (3.5-5.1) Sodium (135-145) mmol/L Potassium (3.5-5.1) mmol/L Chloride (98-107) mmol/L Carbon Dioxide (22-30) mmol/L Anion Gap (5-15) MEQ/L BUN (7-17) mg/dL Creatinine (0.52-1.04) mg/dL Estimated GFR ML/MIN Glucose (74-106) mg/dL Hemoglobin A1c (4.5-6.0) % Lactic Acid (0.4-2.0) Calcium (8.4-10.2) mg/dL Magnesium (1.6-2.3) mg/dL Iron 30 L (37-170) ug/dL TIBC 197 L (265-462) ug/dL Iron Saturation 15 L (20-39) % Ferritin 301 H (11.1-264) ng/mL Total Bilirubin (0.2-1.3) mg/dL AST (14-36) U/L ALT (0-35) U/L Alkaline Phosphatase (38-126) U/L Ammonia (9-30) umol/L Troponin I (0.000-0.033) ng/mL Serum Total Protein (6.3-8.2) g/dL Albumin (3.5-5.0) g/dL Triglycerides (30-150) mg/dL Cholesterol (50-200) mg/dL LDL Cholesterol (30-100) mg/dL HDL Cholesterol (40-60) mg/dL Heart Disease Risk Ratio Vitamin B12 (239-931) pg/mL Folic Acid (2.76 - >20) ng/mL TSH 3rd Generation (0.470-4.680) mIU/L Microbiology 01/31/24 Unknown Stool Culture Result 1 - Final Stool Not Reportable Stool Culture Result 2 - Final Not Reportable Stool Culture Result 3 - Final Not Reportable Stool Culture Result 4 - Final Not Reportable Stool Culture Organism Suscept - Final Not Reportable Campylobacter Result 1 - Final Not Reportable Campylobacter Result 2 - Final Not Reportable Campylobactor Result 3 - Final Not Reportable Campylobacter Result 4 - Final Not Reportable Campylobactor Susceptibility - Final Not Reportable - Radiology Impressions Radiology Exams & Impressions: Radiology Procedures Category Date Time Status HEAD WITHOUT CONTRAST [CT] Stat Exams 01/31/24 11:30 Completed MRI BRAIN W/O CONTRAST [MRI] Routine Exams 02/01/24 15:19 Ordered
--- NOTE | 2024-01-31 17:53 | PCM.CONS ---
History of Present Illness - Neuro Consultation Date of Consultation Date: 01/31/24 ED Arrival Date & Time: 01/31/24 11:20 01/31/24 11:20 Providers: Attending Provider: CLIVE MEADE MD ED Provider: TRINY COLON MD Consulting Provider: LY ADAMS MD cc:: The requesting physician will be sent a copy of the consult. - History of Present Illness HPI: The patient is a 78F Physician Signature This document was electronically signed by: Ly Adams MD 01/31/2024 05:50 PM Consult Cover Page FROM: [facility], Call Back Number: [phone] SUBJECT: Consult Recommendations Date and Time of Report: 01/31/2024 05:50 PM ET Items Contained in this Document: Neurology Consult Note Consult Information Member Facility: [facility] Facility Consult ID: [id number] Facility Time Zone: ET Date and Time of Request: 01-31-2024 04:58 PM ET Requesting Clinician: Deanne Christopher NP Patient Name: RUT GOULD Date of : 1945 Gender: Female Patient identity was confirmed at the beginning of the consult with the patient/family/staff using two personal identifiers: Patient name and Reason for Consult Reason for Consult: Inpatient General Chief Complaint: transient speech difficulties, forgetfulness Patient Location and Admission Status: Inpatient Family Members and Medical Staff Present During Exam: BARBARA Alicea History of Present Illness: Ms. Gould is a 78 yo F w/pmhx of HTN, HLD, CAD who presents with complaints of "not being steady on her legs" over the past month and being more forgetful and unable to speak this morning. As per the patient, she was out with her friends to eat. She reports that she suddenly felt very confused and was slurring her speech. She reports that this lasted <10 mins. She reports that she was told she was not herself. She denies any weakness, vision changes, headache. She denies this ever happening in the past. She reports she takes a bASA everyday. She denies taking any AC or other AP. She currently feels back to her baseline. As per RN, she was told that the patient was supposed to go to breakfast and she completely forgot that she had to go to this event which has been abnormal for her. She was also told that during the breakfast, they were trying to figure out how she was feeling and she was having a hard time getting her words out. Number of Documented HPI Elements: 4+ Medical History Medical History: Coronary Artery Disease, Hyperlipidemia, Hypertension Other Past Procedures: hysterectomy Pertinent Family History: Non contributory Allergies Allergies: NKDA Medications Anti-Coagulants: None Anti-Platelets: ASA 81 mg Other Medications: Citalopram Hydrobromide [Celexa] 10 mg PO DAILY 05/19/17 [History] Ergocalciferol (Vitamin D2) [Vitamin D] 50,000 unit PO DAILY 05/19/17 [History] Metoprolol Succinate 25 mg PO DAILY 05/19/17 [History] Oxybutynin Chloride [Oxybutynin Chloride ER] 5 mg PO TID 05/19/17 [History] Pravastatin Sodium [Pravachol] 40 mg PO HS 05/19/17 [History] Travorpost Ophth [Travatan 0.004% Opth Gena] 2.5 ml OP HS 05/19/17 [History] Aspirin EC 81 mg [Ecotrin 81 mg] 81 mg PO DAILY 09/05/22 [History] Bumetanide 1 mg [Bumex 1 mg] 1 mg PO DAILY 09/05/22 [History] Buspirone HCl 5 mg [Buspar 5 mg] 10 mg PO TID 09/05/22 [History] Gabapentin [Neurontin ] 300 mg PO BID 09/05/22 [History] Hydrochlorothiazide 25 mg [hydroDIURIL 25 MG] 12.5 mg PO DAILY 09/05/22 [History] Lisinopril 10 mg [Zestril 10 MG] 10 mg PO DAILY 09/05/22 [History] Polyethylene Glycol 3350 [Miralax] 17 gm PO BID 09/05/22 [History] Tramadol HCl 50 mg [Ultram 50 mg] 50 mg PO DAILY PRN 09/05/22 [History] Trazodone HCl 50 mg [Desyrel 50 mg] 50 mg PO HS 09/05/22 [History] Trimethoprim 100 mg PO BID 09/05/22 [History] Social History Alcohol Use: None Drug Use: None Tobacco Use: None Vital Signs Temperature: Afebrile Blood Pressure (mmHg): 131/66 Heart Rate (bpm): 71 Respiration Rate (/min): 24 O2 Sat (%): 99 Date and Time: 01/31/2024 05:30:14 PM ET Review Of Systems General, Constitutional: See HPI Neurological: See HPI Psychiatric: See HPI Cardiovascular: See HPI Ears, Nose, Throat: See HPI Respiratory: See HPI Gastrointestinal: See HPI Genitourinary: See HPI Musculoskeletal: See HPI Endocrine: See HPI Hematologic, Lymphatic: See HPI Integumentary: See HPI Ophthalmology: See HPI Allergy, Immunology: See HPI NIH Stroke Scale NIH Stroke Scale Score: 0 1. Level of Consciousness: 0 : alert; keenly responsive. 1a. LOC Questions: 0 : Answers both questions correctly. 1b. LOC Commands: 0 : Performs both tasks correctly. 2. Best Gaze: 0 : Normal. 3. Visual: 0 : No visual loss. 4. Facial Palsy: 0 : Normal symmetrical movements. 5a. Motor Left Arm: 0 : No drift; limb holds 90 (or 45) degrees for full 10 seconds. 5b. Motor Right Arm : 0 : No drift; limb holds 90 (or 45) degrees for full 10 seconds. 6a. Motor Left Le : No drift; leg holds 30-degree position for full 5 seconds. 6b. Motor Right Le : No drift; leg holds 30-degree position for full 5 seconds. 7. Limb Ataxia: 0 : Absent. 8. Sensory: 0 : Normal; no sensory loss. 9. Best Language: 0 : No aphasia; normal. 10. Dysarthria: 0 : Normal. 11. Extinction and inattention (formerly Neglect) : 0 : No abnormality. NIHSS Entry Time: 01/31/2024 05:44:04 PM ET Exam Exam: Mental Status: Awake, alert, and oriented to time, place and situation. Attention is intact. Speech is fluid with appropriate sentence construction. Language shows normal naming, comprehension, fluency, and repetition. Cranial Nerves: Pupils are equal and reactive to light. Fundoscopic exam unable to be performed due to tele encounter. Extraocular movements intact. Visual elizabeth are full to confrontation. Facial sensation is intact. Facial activation is symmetric. Hearing is intact to conversation. There is no dysarthria. Tongue is midline. Palate elevates symmetrically. Shoulder shrug is symmetric. Motor: Normal muscle bulk and tone. Strength 5/5 throughout. No pronator drift. Reflexes: Cannot be performed due to televisit Sensory: Intact to light touch throughout Coordination: No dysmetria on finger to nose or heel to murcia. Clinician assisting with exam: BARBARA Alicea Labs and Imaging Labs available?: Yes INR: 0.94 WBC (mcL): 10.6 HGB (g/dL): 10.5 PLT (mcL): 178 Na (mEq/L): 140 K (mEq/L): 2.8 Other Labs: a1c 5.[address] Findings : CTH showing remote lacunar infarcts bl MRI Brain Findings: Not Available Assessment and Recommendations Assessment: Ms. Gould is a 78 yo F w/pmhx of HTN, HLD, CAD who presents with complaints of "not being steady on her legs" over the past month and transient confusion and aphasia and/or dysarthria. ABCD2 score is 2-3 depending on if shawn nt was <10 mins or not. GIven vascular risk factors and description of the event, she may have had a TIA. Recommendations: Recommend starting her on plavix 75 mg daily in addition to her bASA. Start bASA and palvix x21 days and then transition to plavix 75 mg monotherapy. 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 Please call [facility] with questions, concerns of change in the patient's neurological condition. This consult was done via secure telemedicine audio/visual platform. Patient identity verified and consent was obtained. Staff that participated with the visit included: BARBARA Alicea, SANA Alicea Synchronous Audio-Visual Visit: Patient Consent Obtained?This visit was performed using real-time audio and video connection between my location and the patients location with the assistance of a surrogate at the patients location. Written or verbal consent was obtained from the patient/guardian to perform this visit using synchronous telemedicine technology. Any patient questions regarding the telemedicine interaction were answered. Disposition: Admit patient to telemetry or stroke unit Diagnosis Impression: Transient Ischemic Attack Case discussed with: Deanne Christopher NP ICD-10 Code ICD-10 Code (Primary): R47.01 : Aphasia ICD-10 Code: G45.9 : Transient cerebral ischemic attack, unspecified ICD-10 Code: R41.82 : Altered mental status, unspecified Attestation Interaction Mode: Video & Phone Time of Phone Call : 01-31-2024 05:36 PM ET Time of Video Call : 01-31-2024 05:15 PM ET Interaction Attestation: Clinical telemedicine services delivered using HIPAA- compliant interactive video-audio telecommunications while the patient and the rendering provider were not in the same physical location. Written report was provided to the requesting provider. Evaluation Duration (mins): 35 Guadalupe Timer Summary Date and Time of Request: 01-31-2024 04:58 PM ET Physician Signature This document was electronically signed by: Ly Adams MD 01/31/2024 05:50 PM Review of Systems - Review of Systems Review of Systems (Narrative): Pertinent positive and negative findings as per HPI. All other systems negative. - Past Medical History Past Medical History: Yes Neurological History: No Pertinent History ENT History: Cataracts, Macular Degeneration Cardiac History: High Cholesterol, Hypertension, Myocardial Infarction ([place]) Respiratory History: No Pertinent History Endocrine Medical History: No Pertinent History Musculoskelatal History: Osteoarthritis GI Medical History: GERD, Gallbladder Disease History: Other Pyscho-Social History: Depression Reproductive Disorders: Other Comment: R Knee replacement, Heart attack in 2017 - Past Surgical History Past Surgical History: Yes Neuro Surgical History: No Pertinent History Cardiac History: Cardiac Catheterization Respiratory Surgery: No Pertinent History GI Surgical History: Cholecystectomy Genitourinary Surgical Hx: Other Musculskeletal Surgical Hx: Joint Replacement, Other Female Surgical History: Lumpectomy Other Surgical History: bladder tie up in 2017, left breast lumpectomy, satish eye inj.for degenerative, Right hip repair, Right knee replacement x two, hand surgery - Social History Smoking Status: Never smoker Exposure to second hand smoke: No Alcohol: None Drug Use: none - Social Determinants of Health Will the patient participate in the screening: Declined to provide Do you worry about a steady place to live?: No Do you have any problems with any of the following?: No known problems In the past 12 months,have you had to go without utilities?: No Have you or anyone in your house had to go without enough: No Transportation Issues: No Has anyone in your support network made you feel unsafe?: No Does the patient want assistance with any of the above?: No Physical Exam - Vital Signs Vital Signs: Vital Signs - 24 hr 01/31/24 01/31/24 01/31/24 11:49 12:01 12:30 Temperature 98.2 F Pulse Rate 79 78 71 Respiratory 18 19 23 Rate Blood Pressure 137/56 139/57 Blood Pressure 138/66 [Right Arm] O2 Sat by Pulse 97 98 97 Oximetry 01/31/24 01/31/24 01/31/24 13:00 13:30 14:27 Temperature 98.9 F Pulse Rate 67 71 62 Respiratory 20 24 18 Rate Blood Pressure 135/62 131/66 Blood Pressure 171/72 [Right Arm] O2 Sat by Pulse 97 98 99 Oximetry 01/31/24 01/31/24 15:09 16:00 Temperature 98.2 F Pulse Rate 66 68 Respiratory 20 Rate Blood Pressure Blood Pressure 186/77 [Right Arm] O2 Sat by Pulse 94 L Oximetry Results - Labs Lab/Micro Results: Lab Results-Last 24 Hours 01/31/24 01/31/24 01/31/24 Range/Units 11:31 11:55 11:55 WBC 10.6 H (3.98-10.04) x10^3/uL RBC 3.38 L (3.93-5.22) x10^6/uL Hgb 10.5 L (11.2-15.7) g/dL Hct 31.9 L (34.1-44.9) % MCV 94.4 (79.4-94.8) fL MCH 31.1 (25.6-32.2) pg MCHC 32.9 (32.2-35.5) g/dL RDW 13.9 (11.7-14.4) % Plt Count 178 L (182-369) x10^3/uL MPV 9.8 (9.4-12.3) fL Gran % 79.9 H (34.0-71.1) % Immature Gran % (Auto) 0.8 H (0.001-0.429) % Nucleat RBC Rel Count 0.0 (0.00-0.2) % Eos # (Auto) 0.03 L (0.04-0.36) x10^3/uL Immature Gran # (Auto) 0.08 H (0.001-0.031) x10^3u/L Absolute Lymphs (auto) 1.36 (1.18-3.74) x10^3/uL Absolute Monos (auto) 0.63 (0.24-0.86) x10^3/uL Absolute Nucleated RBC 0.00 (0.00-0.012) x10^3u/L Lymphocytes % 12.8 L (19.3-51.7) % Monocytes % 5.9 (4.7-12.5) % Eosinophils % 0.3 L (0.7-5.8) % Basophils % 0.3 (0.1-1.2) % Absolute Granulocytes 8.50 H (1.56-6.13) x10^3/uL Basophils # 0.03 (0.01-0.08) x10^3/uL PT (9.4-12.5) SECONDS INR (0.8-3.0) APTT (25.1-36.5) SECONDS pO2/FiO2 Ratio % VBG pH (7.32-7.42) VBG pCO2 at Pat Temp (42-55) mm/Hg VBG pO2 at Pat Temp (25-40) mm/Hg VBG HCO3 (22-28) meq/L VBG O2 Sat (Pankaj) (95-100) VBG Base Excess (-2.0-2.0) VBG Hemoglobin VBG Carboxyhemoglobin (0.0-6.9) % T HGB POC Potassium (3.5-5.1) Sodium 140 (135-145) mmol/L Potassium 2.8 L* (3.5-5.1) mmol/L Chloride 107 (98-107) mmol/L Carbon Dioxide 25 (22-30) mmol/L Anion Gap 10.9 (5-15) MEQ/L BUN 21 H (7-17) mg/dL Creatinine 1.03 (0.52-1.04) mg/dL Estimated GFR 55.3 ML/MIN Glucose 167 H (74-106) mg/dL Hemoglobin A1c (4.5-6.0) % Lactic Acid 1.6 (0.4-2.0) Calcium 10.2 (8.4-10.2) mg/dL Magnesium (1.6-2.3) mg/dL Iron (37-170) ug/dL TIBC (265-462) ug/dL Iron Saturation (20-39) % Ferritin (11.1-264) ng/mL Total Bilirubin 0.60 (0.2-1.3) mg/dL AST 21 (14-36) U/L ALT 15 (0-35) U/L Alkaline Phosphatase 78 (38-126) U/L Ammonia (9-30) umol/L Troponin I (0.000-0.033) ng/mL Serum Total Protein 7.6 (6.3-8.2) g/dL Albumin 4.0 (3.5-5.0) g/dL Triglycerides 169 H (30-150) mg/dL Cholesterol 202 H (50-200) mg/dL LDL Cholesterol 106 H (30-100) mg/dL HDL Cholesterol 49 (40-60) mg/dL Heart Disease Risk Ratio 4.0 Vitamin B12 787 (239-931) pg/mL Folic Acid > 16.6 (2.76 - >20) ng/mL TSH 3rd Generation 1.996 (0.470-4.680) mIU/L 01/31/24 01/31/24 01/31/24 Range/Units 11:55 11:55 11:55 WBC (3.98-10.04) x10^3/uL RBC (3.93-5.22) x10^6/uL Hgb (11.2-15.7) g/dL Hct (34.1-44.9) % MCV (79.4-94.8) fL MCH (25.6-32.2) pg MCHC (32.2-35.5) g/dL RDW (11.7-14.4) % Plt Count (182-369) x10^3/uL MPV (9.4-12.3) fL Gran % (34.0-71.1) % Immature Gran % (Auto) (0.001-0.429) % Nucleat RBC Rel Count (0.00-0.2) % Eos # (Auto) (0.04-0.36) x10^3/uL Immature Gran # (Auto) (0.001-0.031) x10^3u/L Absolute Lymphs (auto) (1.18-3.74) x10^3/uL Absolute Monos (auto) (0.24-0.86) x10^3/uL Absolute Nucleated RBC (0.00-0.012) x10^3u/L Lymphocytes % (19.3-51.7) % Monocytes % (4.7-12.5) % Eosinophils % (0.7-5.8) % Basophils % (0.1-1.2) % Absolute Granulocytes (1.56-6.13) x10^3/uL Basophils # (0.01-0.08) x10^3/uL PT 10.3 (9.4-12.5) SECONDS INR 0.94 (0.8-3.0) APTT 27.1 (25.1-36.5) SECONDS pO2/FiO2 Ratio 21.0 % VBG pH 7.45 H (7.32-7.42) VBG pCO2 at Pat Temp 40 L (42-55) mm/Hg VBG pO2 at Pat Temp 27 (25-40) mm/Hg VBG HCO3 27.8 (22-28) meq/L VBG O2 Sat (Pankja) 45.2 L (95-100) VBG Base Excess 3.5 H (-2.0-2.0) VBG Hemoglobin 11.1 VBG Carboxyhemoglobin 1.5 (0.0-6.9) % T HGB POC Potassium 2.9 L* (3.5-5.1) Sodium (135-145) mmol/L Potassium (3.5-5.1) mmol/L Chloride (98-107) mmol/L Carbon Dioxide (22-30) mmol/L Anion Gap (5-15) MEQ/L BUN (7-17) mg/dL Creatinine (0.52-1.04) mg/dL Estimated GFR ML/MIN Glucose (74-106) mg/dL Hemoglobin A1c (4.5-6.0) % Lactic Acid (0.4-2.0) Calcium (8.4-10.2) mg/dL Magnesium (1.6-2.3) mg/dL Iron (37-170) ug/dL TIBC (265-462) ug/dL Iron Saturation (20-39) % Ferritin (11.1-264) ng/mL Total Bilirubin (0.2-1.3) mg/dL AST (14-36) U/L ALT (0-35) U/L Alkaline Phosphatase (38-126) U/L Ammonia < 9 L (9-30) umol/L Troponin I (0.000-0.033) ng/mL Serum Total Protein (6.3-8.2) g/dL Albumin (3.5-5.0) g/dL Triglycerides (30-150) mg/dL Cholesterol (50-200) mg/dL LDL Cholesterol (30-100) mg/dL HDL Cholesterol (40-60) mg/dL Heart Disease Risk Ratio Vitamin B12 (239-931) pg/mL Folic Acid (2.76 - >20) ng/mL TSH 3rd Generation (0.470-4.680) mIU/L 01/31/24 01/31/24 01/31/24 Range/Units 11:55 11:55 16:10 WBC (3.98-10.04) x10^3/uL RBC (3.93-5.22) x10^6/uL Hgb (11.2-15.7) g/dL Hct (34.1-44.9) % MCV (79.4-94.8) fL MCH (25.6-32.2) pg MCHC (32.2-35.5) g/dL RDW (11.7-14.4) % Plt Count (182-369) x10^3/uL MPV (9.4-12.3) fL Gran % (34.0-71.1) % Immature Gran % (Auto) (0.001-0.429) % Nucleat RBC Rel Count (0.00-0.2) % Eos # (Auto) (0.04-0.36) x10^3/uL Immature Gran # (Auto) (0.001-0.031) x10^3u/L Absolute Lymphs (auto) (1.18-3.74) x10^3/uL Absolute Monos (auto) (0.24-0.86) x10^3/uL Absolute Nucleated RBC (0.00-0.012) x10^3u/L Lymphocytes % (19.3-51.7) % Monocytes % (4.7-12.5) % Eosinophils % (0.7-5.8) % Basophils % (0.1-1.2) % Absolute Granulocytes (1.56-6.13) x10^3/uL Basophils # (0.01-0.08) x10^3/uL PT (9.4-12.5) SECONDS INR (0.8-3.0) APTT (25.1-36.5) SECONDS pO2/FiO2 Ratio % VBG pH (7.32-7.42) VBG pCO2 at Pat Temp (42-55) mm/Hg VBG pO2 at Pat Temp (25-40) mm/Hg VBG HCO3 (22-28) meq/L VBG O2 Sat (Pankaj) (95-100) VBG Base Excess (-2.0-2.0) VBG Hemoglobin VBG Carboxyhemoglobin (0.0-6.9) % T HGB POC Potassium (3.5-5.1) Sodium (135-145) mmol/L Potassium (3.5-5.1) mmol/L Chloride (98-107) mmol/L Carbon Dioxide (22-30) mmol/L Anion Gap (5-15) MEQ/L BUN (7-17) mg/dL Creatinine (0.52-1.04) mg/dL Estimated GFR ML/MIN Glucose (74-106) mg/dL Hemoglobin A1c 5.58 (4.5-6.0) % Lactic Acid (0.4-2.0) Calcium (8.4-10.2) mg/dL Magnesium 1.9 (1.6-2.3) mg/dL Iron (37-170) ug/dL TIBC (265-462) ug/dL Iron Saturation (20-39) % Ferritin (11.1-264) ng/mL Total Bilirubin (0.2-1.3) mg/dL AST (14-36) U/L ALT (0-35) U/L Alkaline Phosphatase (38-126) U/L Ammonia (9-30) umol/L Troponin I < 0.012 < 0.012 (0.000-0.033) ng/mL Serum Total Protein (6.3-8.2) g/dL Albumin (3.5-5.0) g/dL Triglycerides (30-150) mg/dL Cholesterol (50-200) mg/dL LDL Cholesterol (30-100) mg/dL HDL Cholesterol (40-60) mg/dL Heart Disease Risk Ratio Vitamin B12 (239-931) pg/mL Folic Acid (2.76 - >20) ng/mL TSH 3rd Generation (0.470-4.680) mIU/L 01/31/24 01/31/24 Range/Units 16:10 16:10 WBC (3.98-10.04) x10^3/uL RBC (3.93-5.22) x10^6/uL Hgb (11.2-15.7) g/dL Hct (34.1-44.9) % MCV (79.4-94.8) fL MCH (25.6-32.2) pg MCHC (32.2-35.5) g/dL RDW (11.7-14.4) % Plt Count (182-369) x10^3/uL MPV (9.4-12.3) fL Gran % (34.0-71.1) % Immature Gran % (Auto) (0.001-0.429) % Nucleat RBC Rel Count (0.00-0.2) % Eos # (Auto) (0.04-0.36) x10^3/uL Immature Gran # (Auto) (0.001-0.031) x10^3u/L Absolute Lymphs (auto) (1.18-3.74) x10^3/uL Absolute Monos (auto) (0.24-0.86) x10^3/uL Absolute Nucleated RBC (0.00-0.012) x10^3u/L Lymphocytes % (19.3-51.7) % Monocytes % (4.7-12.5) % Eosinophils % (0.7-5.8) % Basophils % (0.1-1.2) % Absolute Granulocytes (1.56-6.13) x10^3/uL Basophils # (0.01-0.08) x10^3/uL PT (9.4-12.5) SECONDS INR (0.8-3.0) APTT (25.1-36.5) SECONDS pO2/FiO2 Ratio % VBG pH (7.32-7.42) VBG pCO2 at Pat Temp (42-55) mm/Hg VBG pO2 at Pat Temp (25-40) mm/Hg VBG HCO3 (22-28) meq/L VBG O2 Sat (Pankaj) (95-100) VBG Base Excess (-2.0-2.0) VBG Hemoglobin VBG Carboxyhemoglobin (0.0-6.9) % T HGB POC Potassium (3.5-5.1) Sodium (135-145) mmol/L Potassium (3.5-5.1) mmol/L Chloride (98-107) mmol/L Carbon Dioxide (22-30) mmol/L Anion Gap (5-15) MEQ/L BUN (7-17) mg/dL Creatinine (0.52-1.04) mg/dL Estimated GFR ML/MIN Glucose (74-106) mg/dL Hemoglobin A1c (4.5-6.0) % Lactic Acid (0.4-2.0) Calcium (8.4-10.2) mg/dL Magnesium (1.6-2.3) mg/dL Iron 30 L (37-170) ug/dL TIBC 197 L (265-462) ug/dL Iron Saturation 15 L (20-39) % Ferritin 301 H (11.1-264) ng/mL Total Bilirubin (0.2-1.3) mg/dL AST (14-36) U/L ALT (0-35) U/L Alkaline Phosphatase (38-126) U/L Ammonia (9-30) umol/L Troponin I (0.000-0.033) ng/mL Serum Total Protein (6.3-8.2) g/dL Albumin (3.5-5.0) g/dL Triglycerides (30-150) mg/dL Cholesterol (50-200) mg/dL LDL Cholesterol (30-100) mg/dL HDL Cholesterol (40-60) mg/dL Heart Disease Risk Ratio Vitamin B12 (239-931) pg/mL Folic Acid (2.76 - >20) ng/mL TSH 3rd Generation (0.470-4.680) mIU/L Microbiology 01/31/24 Unknown Stool Culture Result 1 - Final Stool Not Reportable Stool Culture Result 2 - Final Not Reportable Stool Culture Result 3 - Final Not Reportable Stool Culture Result 4 - Final Not Reportable Stool Culture Organism Suscept - Final Not Reportable Campylobacter Result 1 - Final Not Reportable Campylobacter Result 2 - Final Not Reportable Campylobactor Result 3 - Final Not Reportable Campylobacter Result 4 - Final Not Reportable Campylobactor Susceptibility - Final Not Reportable - Radiology Orders Radiology Orders: Radiology Procedures Category Date Time Status HEAD WITHOUT CONTRAST [CT] Stat Exams 01/31/24 11:30 Completed MRI BRAIN W/O CONTRAST [MRI] Routine Exams 02/01/24 15:19 Ordered Impressions & Recommendations - ED Arrival Time ED Arrival Date & Time: ED Arrival Date and Time 01/31/24 11:20 Last known well time: - NIHSS IV Thrombolysis Standard of Care: IV thrombolysis as a standard of care in acute stroke discussed with TRINY COLON MD. Risk, benefits, and options of IV thrombolytic therapy for acute ischemic stroke were discussed with the patient/family RUT GOULD. We discussed that use of IV tenecteplase is in line with national stroke guidelines. We discussed that risks of IV thrombolytic use include intracranial hemorrhage, other fatal bleeding risks, and angioedema. Alternatives of treatment, including not proceeding with thrombolytic therapy were discussed. - Recommendations Recommendations: -Neuro checks, NIHSS, vital signs monitoring as per post tenecteplase protocol -Repeat non contrast head CT or noncontrast MRI brain 24 hours after IV thrombolyltic administration. -Obtain STAT non contrast head CT if there are new neurological deficits, worsening of current deficits, or with complaint of severe headache. Notify Neurology TARAN of changes in neurological exam. -Nicardipine gtt as needed to maintain BP< 180/105 x 24hr post tenecteplase administration. -Monitor for angioedema -SCD's for DVT prophylaxis. Work up: -Basic labs (CBC, BMP, TSH+T4) if not done already. -INR,PTT if not done already -Fasting Lipid Panel and Hgb A1c -Transthroacic echocardiogram [with bubble study] -EKG + Telemetry- monitor for A-FIB Secondary Stroke Prevention -Hold off on antiplatelet therapy x 24 hr post IV thrombolytic therapy Decision to initiate antiplatelet therapy, or anticoagulation if needed, will be based on repeat imaging at 24 hour post thrombolytic administration. -If not medical contraindication, start high intensity statin. Eg. Atrovastatin 80 mg daily Risk Factor Management -HTN control: BP <180/105 for first 24 hr post tenecteplase -If diabetic, optimize glucose control: fdc goal HgA1c <7 -HLD control: Long-term goal LDL <70. High intensity statin recommended. Moderate intensity statin in patients > 75 years. -Smoking Alcohol Use Drug use cessation counseling Stroke Rehabilitation: -Physical therapy, occupational therapy, speech therapy consults -Social work and case management consults for help with discharge needs. Impression and recommendation were discussed with Dr. TRINY COLON MD Thank you for allowing us to participate in this patient's care. Please call [facility] with questions, concerns, or change in patient's neurological status. This consult was performed via secure telemedicine audio/visual platform with [ ] RN assisting at bedside. Patient identity verified and consent obtained. TIQ recieved at [ ] Neuro Cart Time: Delays in Patient Encounter: Assessment & Plan - Encounter Encounter: "The entirety of this encounter was performed via Telemedicine using audio and visual "
[2024-01-31 20:24] LABS: Appearance Cloudy (Clear); Bacteria Many /HPF (None Seen); Bilirubin Negative (Negative); Blood Negative (Negative); Epithelial Cells Moderate /HPF (None Seen); Glucose, Urine Negative (Negative); Ketones Trace (Negative); Leukocyte Esterase Trace (Negative); Nitrite Negative (Negative); Protein,Urine Dip 30 (Negative)
[2024-01-31 20:40] LABS: ADD URINE CULTURE? YES (NO)
[2024-01-31] MEDS: TYLENOL 325 MG PO PRN (20:52)
[2024-01-31] MEDS ORDERED: Neurontin ONE (21:16)
[2024-01-31] MEDS ORDERED: ZOCOR 20MG ONE (21:17)
[2024-01-31] MEDS: Ditropan XL 5 MG PO SCH (21:26)
[2024-01-31] MEDS: Neurontin PO SCH (21:26)
[2024-01-31] MEDS: ZOCOR 20MG PO SCH (21:26)
[2024-01-31] MEDS: DESYREL 50 MG PO SCH (21:26)
[2024-01-31] MEDS: BUSPAR 5 MG PO SCH (21:26)
[2024-01-31] MEDS: Zofran 4 MG/2 ML VIAL IV PRN (21:32)
[2024-01-31] MEDS ORDERED: NON-FORMULARY ITEM (Pravastatin Sodium [Pravachol] 20 MG Tablet) PO SCH (22:00)
[2024-01-31] MEDS ORDERED: NEURONTIN PO SCH (22:00)
[2024-02-01 04:52] LABS: Absolute Neutrophil Ct (ANC) 4.17 x10^3/uL (1.56-6.13); BASOPHIL % 0.5 % (0.1-1.2); Basophil (Absolute #) 0.03 x10^3/uL (0.01-0.08); Eosinophil (Absolute #) 0.13 x10^3/uL (0.04-0.36); Hematocrit 28.2 % (34.1-44.9); Hemoglobin 9.3 g/dL (11.2-15.7); IMMATURE GRAN # 0.04 x10^3u/L (0.001-0.031); IMMATURE GRAN % 0.6 % (0.001-0.429); Lymphocyte (Absolute #) 1.54 x10^3/uL (1.18-3.74); Lymphocytes % 23.6 % (19.3-51.7); Mean Cell Volume 97.6 fL (79.4-94.8); Mean Corpuscular Hemoglobin 32.2 pg (25.6-32.2); Mean Platelet Volume 10.3 fL (9.4-12.3); Monocyte (Absolute #) 0.62 x10^3/uL (0.24-0.86); Monocytes % 9.5 % (4.7-12.5); Neutrophil % 63.8 % (34.0-71.1); Platelet Count 179 x10^3/uL (182-369); Red Blood Count 2.89 x10^6/uL (3.93-5.22); Red Cell Distribution Width 14.3 % (11.7-14.4); White Blood Count 6.5 x10^3/uL (3.98-10.04)
[2024-02-01 05:19] LABS: ALBUMIN 3.4 g/dL (3.5-5.0); ANION GAP 9.6 MEQ/L (5-15); BILIRUBIN,TOTAL 0.5 mg/dL (0.2-1.3); Calcium 9.5 mg/dL (8.4-10.2); Creatinine 1 0.9 mg/dL (0.52-1.04); Potassium 3.4 mmol/L (3.5-5.1); Total Protein 6.8 g/dL (6.3-8.2)
[2024-02-01] MEDS: Travatan 0.004% Opth Sol OP SCH (07:17)
--- NOTE | 2024-02-01 07:26 | PCM.NOTE ---
Date and Time: 02/01/24718 Subjective Assessment: is a 78 year old female with a pmhx of HTN, HLD, DC, GERD, and OA who presented to ED 01/31/24 and admitted with a month history of unsteady gait and most recently aphasia and forgetfullness. 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 She does report diarrhea the past three days with > 3 episodes per day. She denies nausea, vomiting, fever, CP, or abdominal pain. Oral intake has been poor for several weeks.Initial lab findings with mild leukocytosis, normocytic anemia, mild thrombocytopenia, hyperlipidemia, and hypokalemia. Patient received potassium and droperidol in ED. Neuro has been consulted with recs for initiation of Plavix in combo with her home ASA for 21 days, then Plavix only. She is scheduled for MRA B/N and MRI Brain 02/01/24. Potassium remains mildly low this morning, will replenish per protocol. WBC now wnl. Ucult pending. 02/01/24: Met with patient and family bedside. Endorses much improvement overnight. A&O x 3 during interview. Weakness improved some, able to ambulate with PT 80 feet. Neurology consult discussed with the addition of Plavix added to medications. Plan for MRI this morning. Family requesting rehab on discharge, CM working on this pending insurance approval. Potassium mildly low this morning. Plan for replenishment. - Review of Systems Constitutional: Weakness Eyes: No Symptoms Ears, Nose, & Throat: No Symptoms Respiratory: No Symptoms Cardiac: No Symptoms Abdominal/Gastrointestinal: No Symptoms Genitourinary Symptoms: No Symptoms Musculoskeletal: No Symptoms Skin: No Symptoms Neurological: No Symptoms Psychological: No Symptoms Endocrine: No Symptoms Hematologic/Lymphatic: No Symptoms Immunological/Allergic: No Symptoms Objective Exam General Appearance: no apparent distress Neurologic Exam: alert, oriented x 3, cooperative Skin Exam: normal color Wound Assessment: Skin/Wound Assessment Wound/Incision Assessment Start: 01/31/24 14:51 Text: Status: Active Freq: Q6H Protocol: Document 02/01/24 02:00 TC (Rec: 02/01/24 02:25 TC [id number]) Wound Photo Photo Taken No Eye Exam: PERRL Ears, Nose, Throat Exam: normal ENT inspection Neck Exam: normal inspection Respiratory Exam: normal breath sounds, lungs clear Cardiovascular Exam: regular rate/rhythm, normal heart sounds Gastrointestinal/Abdomen Exam: soft, normal bowel sounds Extremity Exam: normal inspection Back Exam: normal inspection Pelvic Exam: deferred Rectal Exam: deferred Objective Data Vital Signs: Vital Signs - 24 hr Temp Pulse Resp BP BP Pulse Ox 02/01/24 03:00 97.5 F 68 17 187/77 99 01/31/24 23:00 98.8 F 63 17 152/67 94 L 01/31/24 19:42 98.4 F 70 17 175/71 93 L 01/31/24 16:00 98.2 F 68 20 186/77 94 L 01/31/24 15:09 66 01/31/24 14:27 98.9 F 62 18 171/72 99 01/31/24 13:30 71 24 131/66 98 01/31/24 13:00 67 20 135/62 97 01/31/24 12:30 71 23 139/57 97 01/31/24 12:01 78 19 137/56 98 01/31/24 11:49 98.2 F 79 18 138/66 97 Pain Assessment - Last Documented Pain Intensity 2 Pain Scale Used 0-10 Pain Scale Intake and Output: Intake & Output 01/29/24 01/30/24 01/31/24 02/01/24 11:59 11:59 11:59 11:59 Intake Total 1427 Output Total 200 Balance 1227 Weight 60.3 kg 70.3 kg Lab Results: Lab Results-Last 24 Hours 01/31/24 01/31/24 01/31/24 Range/Units 11:31 11:55 11:55 WBC 10.6 H (3.98-10.04) x10^3/uL RBC 3.38 L (3.93-5.22) x10^6/uL Hgb 10.5 L (11.2-15.7) g/dL Hct 31.9 L (34.1-44.9) % MCV 94.4 (79.4-94.8) fL MCH 31.1 (25.6-32.2) pg MCHC 32.9 (32.2-35.5) g/dL RDW 13.9 (11.7-14.4) % Plt Count 178 L (182-369) x10^3/uL MPV 9.8 (9.4-12.3) fL Gran % 79.9 H (34.0-71.1) % Immature Gran % (Auto) 0.8 H (0.001-0.429) % Nucleat RBC Rel Count 0.0 (0.00-0.2) % Eos # (Auto) 0.03 L (0.04-0.36) x10^3/uL Immature Gran # (Auto) 0.08 H (0.001-0.031) x10^3u/L Absolute Lymphs (auto) 1.36 (1.18-3.74) x10^3/uL Absolute Monos (auto) 0.63 (0.24-0.86) x10^3/uL Absolute Nucleated RBC 0.00 (0.00-0.012) x10^3u/L Lymphocytes % 12.8 L (19.3-51.7) % Monocytes % 5.9 (4.7-12.5) % Eosinophils % 0.3 L (0.7-5.8) % Basophils % 0.3 (0.1-1.2) % Absolute Granulocytes 8.50 H (1.56-6.13) x10^3/uL Basophils # 0.03 (0.01-0.08) x10^3/uL PT (9.4-12.5) SECONDS INR (0.8-3.0) APTT (25.1-36.5) SECONDS pO2/FiO2 Ratio % VBG pH (7.32-7.42) VBG pCO2 at Pat Temp (42-55) mm/Hg VBG pO2 at Pat Temp (25-40) mm/Hg VBG HCO3 (22-28) meq/L VBG O2 Sat (Pankaj) (95-100) VBG Base Excess (-2.0-2.0) VBG Hemoglobin VBG Carboxyhemoglobin (0.0-6.9) % T HGB POC Potassium (3.5-5.1) Sodium 140 (135-145) mmol/L Potassium 2.8 L* (3.5-5.1) mmol/L Chloride 107 (98-107) mmol/L Carbon Dioxide 25 (22-30) mmol/L Anion Gap 10.9 (5-15) MEQ/L BUN 21 H (7-17) mg/dL Creatinine 1.03 (0.52-1.04) mg/dL Estimated GFR 55.3 ML/MIN Glucose 167 H (74-106) mg/dL Hemoglobin A1c (4.5-6.0) % Lactic Acid 1.6 (0.4-2.0) Calcium 10.2 (8.4-10.2) mg/dL Magnesium (1.6-2.3) mg/dL Iron (37-170) ug/dL TIBC (265-462) ug/dL Iron Saturation (20-39) % Ferritin (11.1-264) ng/mL Total Bilirubin 0.60 (0.2-1.3) mg/dL AST 21 (14-36) U/L ALT 15 (0-35) U/L Alkaline Phosphatase 78 (38-126) U/L Ammonia (9-30) umol/L Troponin I (0.000-0.033) ng/mL Serum Total Protein 7.6 (6.3-8.2) g/dL Albumin 4.0 (3.5-5.0) g/dL Triglycerides 169 H (30-150) mg/dL Cholesterol 202 H (50-200) mg/dL LDL Cholesterol 106 H (30-100) mg/dL HDL Cholesterol 49 (40-60) mg/dL Heart Disease Risk Ratio 4.0 Vitamin B12 787 (239-931) pg/mL Folic Acid > 16.6 (2.76 - >20) ng/mL TSH 3rd Generation 1.996 (0.470-4.680) mIU/L Urine Color (Yellow) Urine Appearance (Clear) Urine pH (4.6-8.0) Ur Specific [place] (1.005-1.030) Urine Protein (Negative) Urine Glucose (UA) (Negative) mg/dL Urine Ketones (Negative) Urine Blood (Negative) Urine Nitrite (Negative) Urine Bilirubin (Negative) Urine Urobilinogen (0.2) mg/dL Ur Leukocyte Esterase (Negative) U Hyaline Cast (Auto) (0-2) /LPF Urine Microscopic RBC (0-5) /HPF Urine Microscopic WBC (0-5) /HPF Ur Epithelial Cells (None Seen) /HPF Urine Bacteria (None Seen) /HPF Urine Culture Reflexed (NO) 01/31/24 01/31/24 01/31/24 Range/Units 11:55 11:55 11:55 WBC (3.98-10.04) x10^3/uL RBC (3.93-5.22) x10^6/uL Hgb (11.2-15.7) g/dL Hct (34.1-44.9) % MCV (79.4-94.8) fL MCH (25.6-32.2) pg MCHC (32.2-35.5) g/dL RDW (11.7-14.4) % Plt Count (182-369) x10^3/uL MPV (9.4-12.3) fL Gran % (34.0-71.1) % Immature Gran % (Auto) (0.001-0.429) % Nucleat RBC Rel Count (0.00-0.2) % Eos # (Auto) (0.04-0.36) x10^3/uL Immature Gran # (Auto) (0.001-0.031) x10^3u/L Absolute Lymphs (auto) (1.18-3.74) x10^3/uL Absolute Monos (auto) (0.24-0.86) x10^3/uL Absolute Nucleated RBC (0.00-0.012) x10^3u/L Lymphocytes % (19.3-51.7) % Monocytes % (4.7-12.5) % Eosinophils % (0.7-5.8) % Basophils % (0.1-1.2) % Absolute Granulocytes (1.56-6.13) x10^3/uL Basophils # (0.01-0.08) x10^3/uL PT 10.3 (9.4-12.5) SECONDS INR 0.94 (0.8-3.0) APTT 27.1 (25.1-36.5) SECONDS pO2/FiO2 Ratio 21.0 % VBG pH 7.45 H (7.32-7.42) VBG pCO2 at Pat Temp 40 L (42-55) mm/Hg VBG pO2 at Pat Temp 27 (25-40) mm/Hg VBG HCO3 27.8 (22-28) meq/L VBG O2 Sat (Pankaj) 45.2 L (95-100) VBG Base Excess 3.5 H (-2.0-2.0) VBG Hemoglobin 11.1 VBG Carboxyhemoglobin 1.5 (0.0-6.9) % T HGB POC Potassium 2.9 L* (3.5-5.1) Sodium (135-145) mmol/L Potassium (3.5-5.1) mmol/L Chloride (98-107) mmol/L Carbon Dioxide (22-30) mmol/L Anion Gap (5-15) MEQ/L BUN (7-17) mg/dL Creatinine (0.52-1.04) mg/dL Estimated GFR ML/MIN Glucose (74-106) mg/dL Hemoglobin A1c (4.5-6.0) % Lactic Acid (0.4-2.0) Calcium (8.4-10.2) mg/dL Magnesium (1.6-2.3) mg/dL Iron (37-170) ug/dL TIBC (265-462) ug/dL Iron Saturation (20-39) % Ferritin (11.1-264) ng/mL Total Bilirubin (0.2-1.3) mg/dL AST (14-36) U/L ALT (0-35) U/L Alkaline Phosphatase (38-126) U/L Ammonia < 9 L (9-30) umol/L Troponin I (0.000-0.033) ng/mL Serum Total Protein (6.3-8.2) g/dL Albumin (3.5-5.0) g/dL Triglycerides (30-150) mg/dL Cholesterol (50-200) mg/dL LDL Cholesterol (30-100) mg/dL HDL Cholesterol (40-60) mg/dL Heart Disease Risk Ratio Vitamin B12 (239-931) pg/mL Folic Acid (2.76 - >20) ng/mL TSH 3rd Generation (0.470-4.680) mIU/L Urine Color (Yellow) Urine Appearance (Clear) Urine pH (4.6-8.0) Ur Specific [place] (1.005-1.030) Urine Protein (Negative) Urine Glucose (UA) (Negative) mg/dL Urine Ketones (Negative) Urine Blood (Negative) Urine Nitrite (Negative) Urine Bilirubin (Negative) Urine Urobilinogen (0.2) mg/dL Ur Leukocyte Esterase (Negative) U Hyaline Cast (Auto) (0-2) /LPF Urine Microscopic RBC (0-5) /HPF Urine Microscopic WBC (0-5) /HPF Ur Epithelial Cells (None Seen) /HPF Urine Bacteria (None Seen) /HPF Urine Culture Reflexed (NO) 01/31/24 01/31/24 01/31/24 Range/Units 11:55 11:55 16:10 WBC (3.98-10.04) x10^3/uL RBC (3.93-5.22) x10^6/uL Hgb (11.2-15.7) g/dL Hct (34.1-44.9) % MCV (79.4-94.8) fL MCH (25.6-32.2) pg MCHC (32.2-35.5) g/dL RDW (11.7-14.4) % Plt Count (182-369) x10^3/uL MPV (9.4-12.3) fL Gran % (34.0-71.1) % Immature Gran % (Auto) (0.001-0.429) % Nucleat RBC Rel Count (0.00-0.2) % Eos # (Auto) (0.04-0.36) x10^3/uL Immature Gran # (Auto) (0.001-0.031) x10^3u/L Absolute Lymphs (auto) (1.18-3.74) x10^3/uL Absolute Monos (auto) (0.24-0.86) x10^3/uL Absolute Nucleated RBC (0.00-0.012) x10^3u/L Lymphocytes % (19.3-51.7) % Monocytes % (4.7-12.5) % Eosinophils % (0.7-5.8) % Basophils % (0.1-1.2) % Absolute Granulocytes (1.56-6.13) x10^3/uL Basophils # (0.01-0.08) x10^3/uL PT (9.4-12.5) SECONDS INR (0.8-3.0) APTT (25.1-36.5) SECONDS pO2/FiO2 Ratio % VBG pH (7.32-7.42) VBG pCO2 at Pat Temp (42-55) mm/Hg VBG pO2 at Pat Temp (25-40) mm/Hg VBG HCO3 (22-28) meq/L VBG O2 Sat (Pankaj) (95-100) VBG Base Excess (-2.0-2.0) VBG Hemoglobin VBG Carboxyhemoglobin (0.0-6.9) % T HGB POC Potassium (3.5-5.1) Sodium (135-145) mmol/L Potassium (3.5-5.1) mmol/L Chloride (98-107) mmol/L Carbon Dioxide (22-30) mmol/L Anion Gap (5-15) MEQ/L BUN (7-17) mg/dL Creatinine (0.52-1.04) mg/dL Estimated GFR ML/MIN Glucose (74-106) mg/dL Hemoglobin A1c 5.58 (4.5-6.0) % Lactic Acid (0.4-2.0) Calcium (8.4-10.2) mg/dL Magnesium 1.9 (1.6-2.3) mg/dL Iron (37-170) ug/dL TIBC (265-462) ug/dL Iron Saturation (20-39) % Ferritin (11.1-264) ng/mL Total Bilirubin (0.2-1.3) mg/dL AST (14-36) U/L ALT (0-35) U/L Alkaline Phosphatase (38-126) U/L Ammonia (9-30) umol/L Troponin I < 0.012 < 0.012 (0.000-0.033) ng/mL Serum Total Protein (6.3-8.2) g/dL Albumin (3.5-5.0) g/dL Triglycerides (30-150) mg/dL Cholesterol (50-200) mg/dL LDL Cholesterol (30-100) mg/dL HDL Cholesterol (40-60) mg/dL Heart Disease Risk Ratio Vitamin B12 (239-931) pg/mL Folic Acid (2.76 - >20) ng/mL TSH 3rd Generation (0.470-4.680) mIU/L Urine Color (Yellow) Urine Appearance (Clear) Urine pH (4.6-8.0) Ur Specific [place] (1.005-1.030) Urine Protein (Negative) Urine Glucose (UA) (Negative) mg/dL Urine Ketones (Negative) Urine Blood (Negative) Urine Nitrite (Negative) Urine Bilirubin (Negative) Urine Urobilinogen (0.2) mg/dL Ur Leukocyte Esterase (Negative) U Hyaline Cast (Auto) (0-2) /LPF Urine Microscopic RBC (0-5) /HPF Urine Microscopic WBC (0-5) /HPF Ur Epithelial Cells (None Seen) /HPF Urine Bacteria (None Seen) /HPF Urine Culture Reflexed (NO) 01/31/24 01/31/24 01/31/24 Range/Units 16:10 16:10 18:50 WBC (3.98-10.04) x10^3/uL RBC (3.93-5.22) x10^6/uL Hgb (11.2-15.7) g/dL Hct (34.1-44.9) % MCV (79.4-94.8) fL MCH (25.6-32.2) pg MCHC (32.2-35.5) g/dL RDW (11.7-14.4) % Plt Count (182-369) x10^3/uL MPV (9.4-12.3) fL Gran % (34.0-71.1) % Immature Gran % (Auto) (0.001-0.429) % Nucleat RBC Rel Count (0.00-0.2) % Eos # (Auto) (0.04-0.36) x10^3/uL Immature Gran # (Auto) (0.001-0.031) x10^3u/L Absolute Lymphs (auto) (1.18-3.74) x10^3/uL Absolute Monos (auto) (0.24-0.86) x10^3/uL Absolute Nucleated RBC (0.00-0.012) x10^3u/L Lymphocytes % (19.3-51.7) % Monocytes % (4.7-12.5) % Eosinophils % (0.7-5.8) % Basophils % (0.1-1.2) % Absolute Granulocytes (1.56-6.13) x10^3/uL Basophils # (0.01-0.08) x10^3/uL PT (9.4-12.5) SECONDS INR (0.8-3.0) APTT (25.1-36.5) SECONDS pO2/FiO2 Ratio % VBG pH (7.32-7.42) VBG pCO2 at Pat Temp (42-55) mm/Hg VBG pO2 at Pat Temp (25-40) mm/Hg VBG HCO3 (22-28) meq/L VBG O2 Sat (Pankaj) (95-100) VBG Base Excess (-2.0-2.0) VBG Hemoglobin VBG Carboxyhemoglobin (0.0-6.9) % T HGB POC Potassium (3.5-5.1) Sodium (135-145) mmol/L Potassium (3.5-5.1) mmol/L Chloride (98-107) mmol/L Carbon Dioxide (22-30) mmol/L Anion Gap (5-15) MEQ/L BUN (7-17) mg/dL Creatinine (0.52-1.04) mg/dL Estimated GFR ML/MIN Glucose (74-106) mg/dL Hemoglobin A1c (4.5-6.0) % Lactic Acid (0.4-2.0) Calcium (8.4-10.2) mg/dL Magnesium (1.6-2.3) mg/dL Iron 30 L (37-170) ug/dL TIBC 197 L (265-462) ug/dL Iron Saturation 15 L (20-39) % Ferritin 301 H (11.1-264) ng/mL Total Bilirubin (0.2-1.3) mg/dL AST (14-36) U/L ALT (0-35) U/L Alkaline Phosphatase (38-126) U/L Ammonia (9-30) umol/L Troponin I < 0.012 (0.000-0.033) ng/mL Serum Total Protein (6.3-8.2) g/dL Albumin (3.5-5.0) g/dL Triglycerides (30-150) mg/dL Cholesterol (50-200) mg/dL LDL Cholesterol (30-100) mg/dL HDL Cholesterol (40-60) mg/dL Heart Disease Risk Ratio Vitamin B12 (239-931) pg/mL Folic Acid (2.76 - >20) ng/mL TSH 3rd Generation (0.470-4.680) mIU/L Urine Color (Yellow) Urine Appearance (Clear) Urine pH (4.6-8.0) Ur Specific [place] (1.005-1.030) Urine Protein (Negative) Urine Glucose (UA) (Negative) mg/dL Urine Ketones (Negative) Urine Blood (Negative) Urine Nitrite (Negative) Urine Bilirubin (Negative) Urine Urobilinogen (0.2) mg/dL Ur Leukocyte Esterase (Negative) U Hyaline Cast (Auto) (0-2) /LPF Urine Microscopic RBC (0-5) /HPF Urine Microscopic WBC (0-5) /HPF Ur Epithelial Cells (None Seen) /HPF Urine Bacteria (None Seen) /HPF Urine Culture Reflexed (NO) 01/31/24 01/31/24 01/31/24 Range/Units 18:50 20:00 22:57 WBC (3.98-10.04) x10^3/uL RBC (3.93-5.22) x10^6/uL Hgb (11.2-15.7) g/dL Hct (34.1-44.9) % MCV (79.4-94.8) fL MCH (25.6-32.2) pg MCHC (32.2-35.5) g/dL RDW (11.7-14.4) % Plt Count (182-369) x10^3/uL MPV (9.4-12.3) fL Gran % (34.0-71.1) % Immature Gran % (Auto) (0.001-0.429) % Nucleat RBC Rel Count (0.00-0.2) % Eos # (Auto) (0.04-0.36) x10^3/uL Immature Gran # (Auto) (0.001-0.031) x10^3u/L Absolute Lymphs (auto) (1.18-3.74) x10^3/uL Absolute Monos (auto) (0.24-0.86) x10^3/uL Absolute Nucleated RBC (0.00-0.012) x10^3u/L Lymphocytes % (19.3-51.7) % Monocytes % (4.7-12.5) % Eosinophils % (0.7-5.8) % Basophils % (0.1-1.2) % Absolute Granulocytes (1.56-6.13) x10^3/uL Basophils # (0.01-0.08) x10^3/uL PT (9.4-12.5) SECONDS INR (0.8-3.0) APTT (25.1-36.5) SECONDS pO2/FiO2 Ratio % VBG pH (7.32-7.42) VBG pCO2 at Pat Temp (42-55) mm/Hg VBG pO2 at Pat Temp (25-40) mm/Hg VBG HCO3 (22-28) meq/L VBG O2 Sat (Pankaj) (95-100) VBG Base Excess (-2.0-2.0) VBG Hemoglobin VBG Carboxyhemoglobin (0.0-6.9) % T HGB POC Potassium (3.5-5.1) Sodium (135-145) mmol/L Potassium 3.4 L D 3.5 (3.5-5.1) mmol/L Chloride (98-107) mmol/L Carbon Dioxide (22-30) mmol/L Anion Gap (5-15) MEQ/L BUN (7-17) mg/dL Creatinine (0.52-1.04) mg/dL Estimated GFR ML/MIN Glucose (74-106) mg/dL Hemoglobin A1c (4.5-6.0) % Lactic Acid (0.4-2.0) Calcium (8.4-10.2) mg/dL Magnesium (1.6-2.3) mg/dL Iron (37-170) ug/dL TIBC (265-462) ug/dL Iron Saturation (20-39) % Ferritin (11.1-264) ng/mL Total Bilirubin (0.2-1.3) mg/dL AST (14-36) U/L ALT (0-35) U/L Alkaline Phosphatase (38-126) U/L Ammonia (9-30) umol/L Troponin I (0.000-0.033) ng/mL Serum Total Protein (6.3-8.2) g/dL Albumin (3.5-5.0) g/dL Triglycerides (30-150) mg/dL Cholesterol (50-200) mg/dL LDL Cholesterol (30-100) mg/dL HDL Cholesterol (40-60) mg/dL Heart Disease Risk Ratio Vitamin B12 (239-931) pg/mL Folic Acid (2.76 - >20) ng/mL TSH 3rd Generation (0.470-4.680) mIU/L Urine Color Yellow (Yellow) Urine Appearance Cloudy A (Clear) Urine pH 5.0 (4.6-8.0) Ur Specific [place] 1.020 (1.005-1.030) Urine Protein 30 (Negative) Urine Glucose (UA) Negative (Negative) mg/dL Urine Ketones Trace A (Negative) Urine Blood Negative (Negative) Urine Nitrite Negative (Negative) Urine Bilirubin Negative (Negative) Urine Urobilinogen 1.0 A (0.2) mg/dL Ur Leukocyte Esterase Trace A (Negative) U Hyaline Cast (Auto) 3-5 A (0-2) /LPF Urine Microscopic RBC 6-10 A (0-5) /HPF Urine Microscopic WBC 3-5 (0-5) /HPF Ur Epithelial Cells Moderate A (None Seen) /HPF Urine Bacteria Many A (None Seen) /HPF Urine Culture Reflexed YES (NO) 02/01/24 02/01/24 Range/Units 04:20 04:20 WBC 6.5 (3.98-10.04) x10^3/uL RBC 2.89 L (3.93-5.22) x10^6/uL Hgb 9.3 L (11.2-15.7) g/dL Hct 28.2 L (34.1-44.9) % MCV 97.6 H (79.4-94.8) fL MCH 32.2 (25.6-32.2) pg MCHC 33.0 (32.2-35.5) g/dL RDW 14.3 (11.7-14.4) % Plt Count 179 L (182-369) x10^3/uL MPV 10.3 (9.4-12.3) fL Gran % 63.8 (34.0-71.1) % Immature Gran % (Auto) 0.6 H (0.001-0.429) % Nucleat RBC Rel Count 0.0 (0.00-0.2) % Eos # (Auto) 0.13 (0.04-0.36) x10^3/uL Immature Gran # (Auto) 0.04 H (0.001-0.031) x10^3u/L Absolute Lymphs (auto) 1.54 (1.18-3.74) x10^3/uL Absolute Monos (auto) 0.62 (0.24-0.86) x10^3/uL Absolute Nucleated RBC 0.00 (0.00-0.012) x10^3u/L Lymphocytes % 23.6 (19.3-51.7) % Monocytes % 9.5 (4.7-12.5) % Eosinophils % 2.0 (0.7-5.8) % Basophils % 0.5 (0.1-1.2) % Absolute Granulocytes 4.17 (1.56-6.13) x10^3/uL Basophils # 0.03 (0.01-0.08) x10^3/uL PT (9.4-12.5) SECONDS INR (0.8-3.0) APTT (25.1-36.5) SECONDS pO2/FiO2 Ratio % VBG pH (7.32-7.42) VBG pCO2 at Pat Temp (42-55) mm/Hg VBG pO2 at Pat Temp (25-40) mm/Hg VBG HCO3 (22-28) meq/L VBG O2 Sat (Pankaj) (95-100) VBG Base Excess (-2.0-2.0) VBG Hemoglobin VBG Carboxyhemoglobin (0.0-6.9) % T HGB POC Potassium (3.5-5.1) Sodium 140 (135-145) mmol/L Potassium 3.4 L (3.5-5.1) mmol/L Chloride 111 H (98-107) mmol/L Carbon Dioxide 23 (22-30) mmol/L Anion Gap 9.6 (5-15) MEQ/L BUN 17 (7-17) mg/dL Creatinine 0.90 (0.52-1.04) mg/dL Estimated GFR 65.0 ML/MIN Glucose 99 (74-106) mg/dL Hemoglobin A1c (4.5-6.0) % Lactic Acid (0.4-2.0) Calcium 9.5 (8.4-10.2) mg/dL Magnesium 2.0 (1.6-2.3) mg/dL Iron (37-170) ug/dL TIBC (265-462) ug/dL Iron Saturation (20-39) % Ferritin (11.1-264) ng/mL Total Bilirubin 0.50 (0.2-1.3) mg/dL AST 18 (14-36) U/L ALT 11 (0-35) U/L Alkaline Phosphatase 67 (38-126) U/L Ammonia (9-30) umol/L Troponin I (0.000-0.033) ng/mL Serum Total Protein 6.8 (6.3-8.2) g/dL Albumin 3.4 L (3.5-5.0) g/dL Triglycerides (30-150) mg/dL Cholesterol (50-200) mg/dL LDL Cholesterol (30-100) mg/dL HDL Cholesterol (40-60) mg/dL Heart Disease Risk Ratio Vitamin B12 (239-931) pg/mL Folic Acid (2.76 - >20) ng/mL TSH 3rd Generation (0.470-4.680) mIU/L Urine Color (Yellow) Urine Appearance (Clear) Urine pH (4.6-8.0) Ur Specific [place] (1.005-1.030) Urine Protein (Negative) Urine Glucose (UA) (Negative) mg/dL Urine Ketones (Negative) Urine Blood (Negative) Urine Nitrite (Negative) Urine Bilirubin (Negative) Urine Urobilinogen (0.2) mg/dL Ur Leukocyte Esterase (Negative) U Hyaline Cast (Auto) (0-2) /LPF Urine Microscopic RBC (0-5) /HPF Urine Microscopic WBC (0-5) /HPF Ur Epithelial Cells (None Seen) /HPF Urine Bacteria (None Seen) /HPF Urine Culture Reflexed (NO) Radiology Exams: Radiology Procedures Category Date Time Status ECHO W/2D AND DOPPLER [US] Routine Exams 02/01/24 00:01 Ordered HEAD WITHOUT CONTRAST [CT] Stat Exams 01/31/24 11:30 Completed MRA BRAIN WITH CONTRAST [MRI] Routine Exams 02/01/24 00:01 Ordered MRA NECK WITH CONTRAST [MRI] Routine Exams 02/01/24 00:01 Ordered MRI BRAIN W/O CONTRAST [MRI] Routine Exams 02/01/24 15:19 Ordered Assessment/Plan (1) Hypokalemia Current Visit: Yes Status: Acute Assessment & Plan: -labs reviewed, initial potassium level at 2.8, most likely secondary to poor oral intake/diarrhea -Will review meds when updated -tele -replenish potassium per protocol 01/31: -K+ at 3.4, will replenish per protocol Code(s): E87.6 - HYPOKALEMIA (2) Leukocytosis Current Visit: Yes Status: Acute Assessment & Plan: -mild with wbc at 10.6 -LA WNL -UA ordered and pending collection -will continue to monitor and trend 01/31: -Resolved -Ucult pending Code(s): D72.829 - ELEVATED WHITE BLOOD CELL COUNT, UNSPECIFIED (3) Aphasia Current Visit: Yes Status: Acute Assessment & Plan: -CT head demonstrating 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 - no acute findings -neuro consult, appreciate recs -MRI brain w/o contrast -ammonia, b12/fol, tsh all wnl 01/31: -Improved today, patient A&O x 3, feels "more like myself" -MRI pending Code(s): R47.01 - APHASIA (4) Unsteady gait Current Visit: Yes Status: Acute Assessment & Plan: -PT/OT -see plan for aphasia 01/31: -PT evaluated, insurance pending rehab placement Code(s): R26.81 - UNSTEADINESS ON FEET (5) HTN (hypertension) Current Visit: Yes Status: Acute Assessment & Plan: -stable, will continue to monitor, resume home meds Code(s): I10 - ESSENTIAL (PRIMARY) HYPERTENSION (6) HLD (hyperlipidemia) Current Visit: Yes Status: Acute Assessment & Plan: -Labs reviewed - trig 162, tot chol 202, LDL chol at 106 - continue statin Code(s): E78.5 - HYPERLIPIDEMIA, UNSPECIFIED (7) Diarrhea Current Visit: Yes Status: Acute Assessment & Plan: -Stools for CDiff, culture, O&P, Giardia 01/31: -resolved overnight, unable to collect specimen for testing Code(s): R19.7 - DIARRHEA, UNSPECIFIED (8) Anemia Current Visit: Yes Status: Acute Assessment & Plan: -normocytic -appears chronic, stable -iron profile, b12/fol VTE: bilateral scd PPI: Pepcid Dispo: 1-2 days Code Status: Full code Code(s): E87.6 - HYPOKALEMIA (2) Leukocytosis Current Visit: Yes Status: Acute Code(s): D72.829 - ELEVATED WHITE BLOOD CELL COUNT, UNSPECIFIED (3) Aphasia Current Visit: Yes Status: Acute Code(s): R47.01 - APHASIA (4) Unsteady gait Current Visit: Yes Status: Acute Code(s): R26.81 - UNSTEADINESS ON FEET (5) HTN (hypertension) Current Visit: Yes Status: Acute Code(s): I10 - ESSENTIAL (PRIMARY) HYPERTENSION (6) HLD (hyperlipidemia) Current Visit: Yes Status: Acute Code(s): E78.5 - HYPERLIPIDEMIA, UNSPECIFIED (7) Diarrhea Current Visit: Yes Status: Acute Code(s): R19.7 - DIARRHEA, UNSPECIFIED (8) Anemia Current Visit: Yes Status: Acute Code(s): D64.9 - ANEMIA, UNSPECIFIED
[2024-02-01] MEDS: Ditropan 5 MG PO SCH (10:15)
[2024-02-01] MEDS: Protonix 40MG Tablet PO SCH (10:15)
[2024-02-01] MEDS: ECOTRIN 81 MG PO SCH (10:16)
[2024-02-01] MEDS: Cozaar 50 MG PO SCH (10:16)
[2024-02-01] MEDS: Pepcid 20 MG PO SCH (10:16)
[2024-02-01] MEDS: ceLEXa 20 MG PO SCH (10:16)
[2024-02-01] MEDS: Toprol-Xl 25MG Tablets PO SCH (10:16)
[2024-02-01] MEDS: PLAVIX Tablet PO SCH (10:18)
--- NOTE | 2024-02-01 11:08 | XRAY ---
Indication: alf placement. Comparison: September 05, 2022 Portable chest demonstrates new diffuse right lung interstitial alveolar opacities greatest near lung base without consolidation/large effusion. Remaining heart and left lung unremarkable again with incidental left base calcified granuloma. Bony thorax intact again with osteopenia and degenerative changes.
[2024-02-01] MEDS: Klor Con PO SCH (11:53)
--- NOTE | 2024-02-01 13:55 | XRAY ---
Indication: Aphagia. Nonacute CT head exam one day earlier. Sagittal, coronal, and axial MRI brain performed without contrast using T1, T2, FLAIR, diffusion, and ADC sequences. Comparison: September 08, 2022 Again age-appropriate global atrophy and multiple bilateral basal ganglia remote lacunar infarcts. Grossly stable degenerative micro-ischemia signal in the periventricular white matter bilaterally and brainstem/omar. No acute intracranial hemorrhage, abnormal extra-axial fluid question, or mass effect. Diffusion images again negative for restricted signal. Fourth ventricle is midline without hydrocephalus. 7/8 cranial nerve complex bilaterally symmetric. Normal flow-void signal within the major intracerebral circulation. Normal appearing craniocervical junction and sella turcica. Visualized paranasal sinuses and mastoid air cells are clear. Impression: 1. Grossly stable atrophy, degenerative micro-ischemia, and multiple bilateral basal ganglia remote lacunar infarcts. 2. Again no new or acute intracranial abnormalities or evidence for evolving large vessel territorial stroke.
[2024-02-01] MEDS: ROCEPHIN 1 GM / 100 ML NaCl 1 GM/100 ML IVPB IV SCH (15:15)
[2024-02-01] MEDS: Desyrel 150 MG PO SCH (21:40)
[2024-02-01] MEDS: ULTRAM 50 MG PO PRN (21:41)
[2024-02-02 04:46] LABS: BASOPHIL % 0.5 % (0.1-1.2); Basophil (Absolute #) 0.04 x10^3/uL (0.01-0.08); Eosinophil % 2.6 % (0.7-5.8); Eosinophil (Absolute #) 0.19 x10^3/uL (0.04-0.36); Hematocrit 29.8 % (34.1-44.9); Hemoglobin 9.6 g/dL (11.2-15.7); IMMATURE GRAN # 0.05 x10^3u/L (0.001-0.031); IMMATURE GRAN % 0.7 % (0.001-0.429); Lymphocyte (Absolute #) 1.76 x10^3/uL (1.18-3.74); Lymphocytes % 23.9 % (19.3-51.7); Mean Cell Volume 96.4 fL (79.4-94.8); Mean Corpuscular Hemoglobin 31.1 pg (25.6-32.2); Mean Corpuscular Hgb Concent. 32.2 g/dL (32.2-35.5); Mean Platelet Volume 9.8 fL (9.4-12.3); Monocyte (Absolute #) 0.72 x10^3/uL (0.24-0.86); Monocytes % 9.8 % (4.7-12.5); Neutrophil % 62.5 % (34.0-71.1); Platelet Count 215 x10^3/uL (182-369); Red Blood Count 3.09 x10^6/uL (3.93-5.22); Red Cell Distribution Width 14.4 % (11.7-14.4); White Blood Count 7.4 x10^3/uL (3.98-10.04)
[2024-02-02 05:21] LABS: ALBUMIN 3.4 g/dL (3.5-5.0); ANION GAP 11.3 MEQ/L (5-15); BILIRUBIN,TOTAL 0.5 mg/dL (0.2-1.3); Calcium 9.6 mg/dL (8.4-10.2); Creatinine 1 0.95 mg/dL (0.52-1.04); Potassium 4.1 mmol/L (3.5-5.1); Total Protein 6.7 g/dL (6.3-8.2)
[2024-02-02] MEDS: Zithromax 500 MG/ 250 ML NaCl Premix 500 MG/250 ML IVPB IV SCH (10:50)
--- NOTE | 2024-02-02 14:56 | PCM.NOTE ---
Date and Time: 02/02/24 0251 Subjective Assessment: is a 78 year old female with a pmhx of HTN, HLD, VT, GERD, and OA who presented to ED 01/31/24 and admitted with a month history of unsteady gait and most recently aphasia and forgetfullness. 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 She does report diarrhea the past three days with > 3 episodes per day. She denies nausea, vomiting, fever, CP, or abdominal pain. Oral intake has been poor for several weeks.Initial lab findings with mild leukocytosis, normocytic anemia, mild thrombocytopenia, hyperlipidemia, and hypokalemia. Patient received potassium and droperidol in ED. Neuro has been consulted with recs for initiation of Plavix in combo with her home ASA for 21 days, then Plavix only. She is scheduled for MRA B/N and MRI Brain 02/01/24. Potassium remains mildly low this morning, will replenish per protocol. WBC now wnl. Ucult pending. 02/01/24: Met with patient and family bedside. Endorses much improvement overnight. A&O x 3 during interview. Weakness improved some, able to ambulate with PT 80 feet. Neurology consult discussed with the addition of Plavix added to medications. Plan for MRI this morning. Family requesting rehab on discharge, CM working on this pending insurance approval. Potassium mildly low this morning. Plan for replenishment. 02/02/24: Met with bedside. Remains A&O x 3, no further issues with aphasia or confusion. Energy level is improving some but remains weak and will be needing rehab on discharge. Discussed MRI showing previous stroke but no acute findings. CXR showing pneumonia which may be the cause of her symptoms. Ceftriaxone and azithromycin have been started. Patient states she has had a cough for several weeks and some shortness of breath with exertion. Placement pending precert. - Review of Systems Constitutional: Weakness Eyes: No Symptoms Ears, Nose, & Throat: Nose Congestion Respiratory: Cough, Short Of Breath Cardiac: No Symptoms Abdominal/Gastrointestinal: No Symptoms Genitourinary Symptoms: No Symptoms Musculoskeletal: No Symptoms Skin: No Symptoms Neurological: No Symptoms Psychological: No Symptoms Endocrine: No Symptoms Hematologic/Lymphatic: No Symptoms Immunological/Allergic: No Symptoms Objective Exam General Appearance: no apparent distress Neurologic Exam: alert, oriented x 3, cooperative Skin Exam: normal color Wound Assessment: Skin/Wound Assessment Wound/Incision Assessment Start: 01/31/24 14:51 Text: Status: Active Freq: Q6H Protocol: Document 02/02/24 02:00 AF (Rec: 02/02/24 03:15 AF [id number]) Wound Photo Photo Taken No Eye Exam: PERRL Ears, Nose, Throat Exam: normal ENT inspection Neck Exam: normal inspection Respiratory Exam: crackles/rales Cardiovascular Exam: regular rate/rhythm, normal heart sounds Gastrointestinal/Abdomen Exam: soft, normal bowel sounds Extremity Exam: normal inspection Back Exam: normal inspection Pelvic Exam: deferred Rectal Exam: deferred Objective Data Vital Signs: Vital Signs - 24 hr Temp Pulse Resp BP Pulse Ox 02/02/24 11:00 97.8 F 68 16 138/64 92 L 02/02/24 10:00 22 02/02/24 07:00 97.8 F 73 25 H 184/71 95 02/02/24 04:00 16 02/02/24 03:00 98.7 F 75 16 158/67 98 02/02/24 00:00 16 02/01/24 23:00 98.3 F 73 16 175/71 94 L 02/01/24 20:00 18 02/01/24 19:00 99.9 F 59 L 18 184/73 99 02/01/24 15:00 98.2 F 67 18 154/67 93 L Pain Assessment - Last Documented Pain Intensity 0 Pain Scale Used 0-10 Pain Scale Intake and Output: Intake & Output 01/31/24 02/01/24 02/02/24 02/03/24 11:59 11:59 11:59 11:59 Intake Total 1487 2294 360 Output Total 200 Balance 1287 2294 360 Weight 60.3 kg 70.3 kg Lab Results: Lab Results-Last 24 Hours 02/01/24 02/01/24 02/02/24 Range/Units 15:30 19:03 04:10 WBC 7.4 (3.98-10.04) x10^3/uL RBC 3.09 L (3.93-5.22) x10^6/uL Hgb 9.6 L (11.2-15.7) g/dL Hct 29.8 L (34.1-44.9) % MCV 96.4 H (79.4-94.8) fL MCH 31.1 (25.6-32.2) pg MCHC 32.2 (32.2-35.5) g/dL RDW 14.4 (11.7-14.4) % Plt Count 215 (182-369) x10^3/uL MPV 9.8 (9.4-12.3) fL Gran % 62.5 (34.0-71.1) % Immature Gran % (Auto) 0.7 H (0.001-0.429) % Nucleat RBC Rel Count 0.0 (0.00-0.2) % Eos # (Auto) 0.19 (0.04-0.36) x10^3/uL Immature Gran # (Auto) 0.05 H (0.001-0.031) x10^3u/L Absolute Lymphs (auto) 1.76 (1.18-3.74) x10^3/uL Absolute Monos (auto) 0.72 (0.24-0.86) x10^3/uL Absolute Nucleated RBC 0.00 (0.00-0.012) x10^3u/L Lymphocytes % 23.9 (19.3-51.7) % Monocytes % 9.8 (4.7-12.5) % Eosinophils % 2.6 (0.7-5.8) % Basophils % 0.5 (0.1-1.2) % Absolute Granulocytes 4.60 (1.56-6.13) x10^3/uL Basophils # 0.04 (0.01-0.08) x10^3/uL Sodium (135-145) mmol/L Potassium 3.4 L 4.3 D (3.5-5.1) mmol/L Chloride (98-107) mmol/L Carbon Dioxide (22-30) mmol/L Anion Gap (5-15) MEQ/L BUN (7-17) mg/dL Creatinine (0.52-1.04) mg/dL Estimated GFR ML/MIN Glucose (74-106) mg/dL Calcium (8.4-10.2) mg/dL Magnesium (1.6-2.3) mg/dL Total Bilirubin (0.2-1.3) mg/dL AST (14-36) U/L ALT (0-35) U/L Alkaline Phosphatase (38-126) U/L Serum Total Protein (6.3-8.2) g/dL Albumin (3.5-5.0) g/dL 02/02/24 Range/Units 04:10 WBC (3.98-10.04) x10^3/uL RBC (3.93-5.22) x10^6/uL Hgb (11.2-15.7) g/dL Hct (34.1-44.9) % MCV (79.4-94.8) fL MCH (25.6-32.2) pg MCHC (32.2-35.5) g/dL RDW (11.7-14.4) % Plt Count (182-369) x10^3/uL MPV (9.4-12.3) fL Gran % (34.0-71.1) % Immature Gran % (Auto) (0.001-0.429) % Nucleat RBC Rel Count (0.00-0.2) % Eos # (Auto) (0.04-0.36) x10^3/uL Immature Gran # (Auto) (0.001-0.031) x10^3u/L Absolute Lymphs (auto) (1.18-3.74) x10^3/uL Absolute Monos (auto) (0.24-0.86) x10^3/uL Absolute Nucleated RBC (0.00-0.012) x10^3u/L Lymphocytes % (19.3-51.7) % Monocytes % (4.7-12.5) % Eosinophils % (0.7-5.8) % Basophils % (0.1-1.2) % Absolute Granulocytes (1.56-6.13) x10^3/uL Basophils # (0.01-0.08) x10^3/uL Sodium 140 (135-145) mmol/L Potassium 4.1 (3.5-5.1) mmol/L Chloride 110 H (98-107) mmol/L Carbon Dioxide 23 (22-30) mmol/L Anion Gap 11.3 (5-15) MEQ/L BUN 14 (7-17) mg/dL Creatinine 0.95 (0.52-1.04) mg/dL Estimated GFR 61.0 ML/MIN Glucose 92 (74-106) mg/dL Calcium 9.6 (8.4-10.2) mg/dL Magnesium 2.0 (1.6-2.3) mg/dL Total Bilirubin 0.50 (0.2-1.3) mg/dL AST 18 (14-36) U/L ALT 11 (0-35) U/L Alkaline Phosphatase 69 (38-126) U/L Serum Total Protein 6.7 (6.3-8.2) g/dL Albumin 3.4 L (3.5-5.0) g/dL Radiology Exams: Radiology Procedures Category Date Time Status CHEST 1 VIEW (PORTABLE) Urgent Exams 02/01/24 10:35 Completed ECHO W/2D AND DOPPLER [US] Routine Exams 02/01/24 00:01 Taken MRA BRAIN WITH CONTRAST [MRI] Routine Exams 02/03/24 00:01 Ordered MRA NECK WITH CONTRAST [MRI] Routine Exams 02/03/24 00:01 Ordered MRI BRAIN W/O CONTRAST [MRI] Routine Exams 02/01/24 15:19 Completed Multi-Disciplinary Progress Notes: Multi-Disciplinary Progress Notes 02/02/24 13:37 Case Management Note by Nasrin Fisher AND S/W [facility] AT [place]- STILL NO UPDATE ON STATUS OF PRECERT AT THIS TIME Initialized on 02/02/24 13:37 - END OF NOTE 02/02/24 10:53 Occupational Therapy Note by Lisa Day OCCUPATIONAL THERAPY TREATMENT ON 02/02/24 (09:15-09:45) OT REVIEWED MRI REPORT: "Impression: 1. Grossly stable atrophy, degenerative micro-ischemia, and multiple bilateral basal ganglia remote lacunar infarcts. 2. Again no new or acute intracranial abnormalities or evidence for evolving large vessel territorial stroke" UPON ARRIVAL, PATIENT WAS SUPINE IN BED WITH HOB ELEVATED AND AGREEABLE TO OT TREATMENT SESSION. RUT REQUIRED MOD ASSIST TO MANAGE BLANKETS/COVERS WITH SBA FOR SUPINE TO SIT AT EOB. SHE UTILIZED HAND RAIL AND HOB ELEVATED FOR THE BED MOBILITY TASK IN WHICH SHE SLEEPS IN A STANDARD BED WITHOUT HAND RAIL AT HOME. EDUCATION THEN PROVIDED ON TXM SESSION THIS DATE WITH VERBAL CUES UTILIZED FREQUENTLY FOR HAND PLACEMENT AND SAFETY INSIGHT DURING FUNCTIONAL TASKS. RUT ENGAGED IN BUE STRENGTH TRAINING WITH INCREASED WEAKNESS NOTED ON RIGHT SIDE COMPARED TO LEFT SIDE. SHE UTILIZES 1# DB FOR CHEST PRESS, SHOULDER FLEXION TO 90 DEGREES, SHOULDER ABDUCTION TO 90 DEGREES, AND BICEP CURL (1 SET X 12 REPS). SHE THEN COMPLETED SEATED LATERAL LEAN TASKS TO FACILITATE BALANCE, UE STRENGTH TRAINING WHICH RELATES DIRECTLY TO BED MOBILITY INDEPENDENCE. SHE THEN COMPLETES STANDING BALANCE TASKS WITH REACHING TECHNIQUE TO FACILITATE SAFETY INSIGHT REQUIRED FOR I/ADLS FOLLOWED BY FUNCTIONAL ACTIVITY TOLERANCE TASK WITH FUNCTIONAL MOBILITY IN ROOM. SHE UTILIZED FWW WITH CGA AND FREQUENT VERBAL CUES ON SAFETY INSIGHT DUE TO POOR USE OF FWW, BUT DEMONSTRATES IMPROVED STABILITY WITH FWW. CGA UTILIZED THROUGHOUT ENTIRE SESSION DUE TO INTERMITTENT INSTABILITY. OT CONTINUES TO RECOMMEND SNF PLACEMENT AT D/C DUE TO DECONDITIONING AND INSTABILITY REQUIRING ASSISTANCE FOR I/ADLS. Initialized on 02/02/24 10:53 - END OF NOTE 02/02/24 10:32 [facility]PTED PENDING AUTH FROM INSURANCE. ROOM NUMBER WILL BE [id number] Initialized on 02/02/24 10:32 - END OF NOTE 02/02/24 10:17 Case Management Note by Nasrin Fisher S/W PATIENT- SHE WOULD STILL LIKE TO GO TO [place] AT TIME OF DC FOR A SHORT TERM REHAB STY CALLED [facility] TO CHECK ON STATUS OF REFERRAL- NO ANSWER, LM Initialized on 02/02/24 10:17 - END OF NOTE Assessment/Plan (1) Pneumonia Current Visit: Yes Status: Acute Assessment & Plan: -On RA, which is her baseline, no wheezing, crackles in lung bases -Supplemental oxygen with spo2 goal >92% -Ceftriaxone/azithromycin - can switch to oral on discharge (1) Hypokalemia Current Visit: Yes Status: Acute Assessment & Plan: -labs reviewed, initial potassium level at 2.8, most likely secondary to poor oral intake/diarrhea -Will review meds when updated -tele -replenish potassium per protocol 01/31: -K+ at 3.4, will replenish per protocol 02/01: -Resolved Code(s): E87.6 - HYPOKALEMIA (2) Leukocytosis Current Visit: Yes Status: Acute Assessment & Plan: -mild with wbc at 10.6 -LA WNL -UA ordered and pending collection -will continue to monitor and trend 01/31: -Resolved -Ucult pending 02/01: Most likely secondary to pneumonia -resolved -ucult negative -continue ceftriaxone/azithromycin Code(s): D72.829 - ELEVATED WHITE BLOOD CELL COUNT, UNSPECIFIED (3) Aphasia Current Visit: Yes Status: Acute Assessment & Plan: -CT head demonstrating 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 - no acute findings -neuro consult, appreciate recs -MRI brain w/o contrast -ammonia, b12/fol, tsh all wnl 01/31: -Improved today, patient A&O x 3, feels "more like myself" -MRI pending 02/01: -MRI showing Grossly stable atrophy, degenerative micro-ischemia, and multiple bilateral basal ganglia remote lacunar infarcts - per neurology recs will continue plavix/asa for 21 days, then monotherapy with plavix -Plan for rehab on discharge -MRA H/N pending - unable to perform until Tuesday - can complete as OP if she dc prior to Tuesday Code(s): R47.01 - APHASIA (4) Unsteady gait Current Visit: Yes Status: Acute Assessment & Plan: -PT/OT -see plan for aphasia 01/31: -PT evaluated, insurance pending rehab placement Code(s): R26.81 - UNSTEADINESS ON FEET (5) HTN (hypertension) Current Visit: Yes Status: Acute Assessment & Plan: -stable, will continue to monitor, resume home meds Code(s): I10 - ESSENTIAL (PRIMARY) HYPERTENSION (6) HLD (hyperlipidemia) Current Visit: Yes Status: Acute Assessment & Plan: -Labs reviewed - trig 162, tot chol 202, LDL chol at 106 - continue statin Code(s): E78.5 - HYPERLIPIDEMIA, UNSPECIFIED (7) Diarrhea Current Visit: Yes Status: Acute Assessment & Plan: -Stools for CDiff, culture, O&P, Giardia 01/31: -resolved overnight, unable to collect specimen for testing Code(s): R19.7 - DIARRHEA, UNSPECIFIED (8) Anemia Current Visit: Yes Status: Acute Assessment & Plan: -normocytic -appears chronic, stable -iron profile, b12/fol 02/01: -B12/fol WNL, iron profile/ferritin pending, hgb stable VTE: bilateral scd PPI: Pepcid Dispo: 1-2 days Code Status: Full code Code(s): J18.9 - PNEUMONIA, UNSPECIFIED ORGANISM (2) Hypokalemia Current Visit: Yes Status: Acute Code(s): E87.6 - HYPOKALEMIA (3) Leukocytosis Current Visit: Yes Status: Acute Code(s): D72.829 - ELEVATED WHITE BLOOD CELL COUNT, UNSPECIFIED (4) Aphasia Current Visit: Yes Status: Acute Code(s): R47.01 - APHASIA (5) Unsteady gait Current Visit: Yes Status: Acute Code(s): R26.81 - UNSTEADINESS ON FEET (6) HTN (hypertension) Current Visit: Yes Status: Acute Code(s): I10 - ESSENTIAL (PRIMARY) HYPERTENSION (7) HLD (hyperlipidemia) Current Visit: Yes Status: Acute Code(s): E78.5 - HYPERLIPIDEMIA, UNSPECIFIED (8) Diarrhea Current Visit: Yes Status: Acute Code(s): R19.7 - DIARRHEA, UNSPECIFIED (9) Anemia Current Visit: Yes Status: Acute Code(s): D64.9 - ANEMIA, UNSPECIFIED
[2024-02-02] MEDS ORDERED: NORVASC 5 MG PO PRN (22:41)
[2024-02-02] MEDS: TYLENOL 325 MG PO PRN (22:54)
[2024-02-03 04:06] VITALS: RESP 16
--- NOTE | 2024-02-03 05:02 | PCM.DS ---
Discharge Summary Date of Admission: 01/31/24 14:01 Date of Discharge: 02/03/24 Admitting Physician: CLIVE MEADE MD Consults: Consults on Case 01/31/24 15:19 Consult Neurology ROUTINE Primary Care Provider: CHRISTOPHER HERNADEZ MD Allergies Allergies No Known Drug Allergies Allergy (Verified 01/31/24 11:32) Hospital Summary - Hospital Course Hospital Course: is a 78 year old female with a pmhx of HTN, HLD, MO, GERD, and OA who presented to ED 01/31/24 and admitted with a month history of unsteady gait and most recently aphasia and forgetfullness. 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 She does report diarrhea the past three days with > 3 episodes per day and cough. She denies nausea, vomiting, fever, CP, or abdominal pain. Oral intake has been poor for several weeks.Initial lab findings with mild leukocytosis, normocytic anemia, mild thrombocytopenia, hyperlipidemia, and hypokalemia. Patient received potassium and droperidol in ED. Neuro has been consulted with recs for initiation of Plavix in combo with her home ASA for 21 days, then Plavix only. MRI of the brain showing Grossly stable atrophy, degenerative micro-ischemia, and multiplebilateral basal ganglia remote lacunar infarcts. Diarrhea has resolved. CXR showing pneumonia which may be the cause of her symptoms. IP treatment with Ceftriaxone and azithromycin. Patient states she has had a cough for several weeks and some shortness of breath with exertion. Dyspnea and cough have improved. Patient has been able to ambulate 150 ft with PT. Plan is to discharge home today with [facility]. Discharge Note New Diagnosis: Pneumonia New Medications: cefpodoxime/plavix Follow Up: pcp Outpatient testing to order:MRA H/N Latest Assessment & Plan (1) Pneumonia Current Visit: Yes Status: Acute Assessment & Plan: -On RA, which is her baseline, no wheezing, crackles in lung bases -Supplemental oxygen with spo2 goal >92% -Ceftriaxone/azithromycin - can switch to oral on discharge (1) Hypokalemia Current Visit: Yes Status: Acute Assessment & Plan: -labs reviewed, initial potassium level at 2.8, most likely secondary to poor oral intake/diarrhea -Will review meds when updated -tele -replenish potassium per protocol 01/31: -K+ at 3.4, will replenish per protocol 02/01: -Resolved Code(s): E87.6 - HYPOKALEMIA (2) Leukocytosis Current Visit: Yes Status: Acute Assessment & Plan: -mild with wbc at 10.6 -LA WNL -UA ordered and pending collection -will continue to monitor and trend 01/31: -Resolved -Ucult pending 02/01: Most likely secondary to pneumonia -resolved -ucult negative -continue ceftriaxone/azithromycin Code(s): D72.829 - ELEVATED WHITE BLOOD CELL COUNT, UNSPECIFIED (3) Aphasia Current Visit: Yes Status: Acute Assessment & Plan: -CT head demonstrating 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 - no acute findings -neuro consult, appreciate recs -MRI brain w/o contrast -ammonia, b12/fol, tsh all wnl 01/31: -Improved today, patient A&O x 3, feels "more like myself" -MRI pending 02/01: -MRI showing Grossly stable atrophy, degenerative micro-ischemia, and multiple bilateral basal ganglia remote lacunar infarcts - per neurology recs will continue plavix/asa for 21 days, then monotherapy with plavix -Plan for rehab on discharge -MRA H/N pending - unable to perform until Tuesday - can complete as OP if she dc prior to Friday 02/02: -Continue asa/plavix x 21 days, then plavix only Code(s): R47.01 - APHASIA (4) Unsteady gait Current Visit: Yes Status: Acute Assessment & Plan: -PT/OT -see plan for aphasia 01/31: -PT evaluated, insurance pending rehab placement 02/01: -ambulation has improved with treatment of pneumonia, patient to dc home with [facility] Code(s): R26.81 - UNSTEADINESS ON FEET (5) HTN (hypertension) Current Visit: Yes Status: Acute Assessment & Plan: -stable, will continue to monitor, resume home meds Code(s): I10 - ESSENTIAL (PRIMARY) HYPERTENSION (6) HLD (hyperlipidemia) Current Visit: Yes Status: Acute Assessment & Plan: -Labs reviewed - trig 162, tot chol 202, LDL chol at 106 - continue statin Code(s): E78.5 - HYPERLIPIDEMIA, UNSPECIFIED (7) Diarrhea Current Visit: Yes Status: Acute Assessment & Plan: -Stools for CDiff, culture, O&P, Giardia 01/31: -resolved overnight, unable to collect specimen for testing Code(s): R19.7 - DIARRHEA, UNSPECIFIED (8) Anemia Current Visit: Yes Status: Acute Assessment & Plan: -normocytic -appears chronic, stable -iron profile, b12/fol 02/01: -B12/fol WNL, iron profile/ferritin pending, hgb stable VTE: bilateral scd PPI: Pepcid Dispo: 1-2 days Code Status: Full code Code(s): J18.9 - PNEUMONIA, UNSPECIFIED ORGANISM I spent 35 minutes [id number] with the patient on the day of discharge performing discharge exam, discussing hospital stay and discharge instructions with patient and caregivers, preparation of discharge records, prescriptions & referral forms and addressing any questions/concerns the patient had as documented above. - Vitals & Intake/Output Vital Signs: Vital Signs Temperature 98.7 F 02/03/24 03:00 Pulse Rate 75 02/03/24 03:00 Respiratory Rate 16 02/03/24 03:00 Blood Pressure 160/67 02/03/24 03:00 O2 Sat by Pulse Oximetry 93 L 02/03/24 03:00 Intake & Output: Intake & Output 01/31/24 02/01/24 02/02/24 02/03/24 11:59 11:59 11:59 11:59 Intake Total 1487 2294 1220 Output Total 200 Balance 1287 2294 1220 Weight 60.3 kg 70.3 kg - Lab Result Diagrams: 02/03/24 04:20 02/03/24 04:20 Lab Results-Last 24 Hrs: Lab Results-Last 24 Hours 02/02/24 02/02/24 Range/Units 04:10 15:02 Sodium 140 (135-145) mmol/L Potassium 4.1 (3.5-5.1) mmol/L Chloride 110 H (98-107) mmol/L Carbon Dioxide 23 (22-30) mmol/L Anion Gap 11.3 (5-15) MEQ/L BUN 14 (7-17) mg/dL Creatinine 0.95 (0.52-1.04) mg/dL Estimated GFR 61.0 ML/MIN Glucose 92 (74-106) mg/dL Calcium 9.6 (8.4-10.2) mg/dL Magnesium 2.0 (1.6-2.3) mg/dL Ferritin 290 H (11.1-264) ng/mL Total Bilirubin 0.50 (0.2-1.3) mg/dL AST 18 (14-36) U/L ALT 11 (0-35) U/L Alkaline Phosphatase 69 (38-126) U/L Serum Total Protein 6.7 (6.3-8.2) g/dL Albumin 3.4 L (3.5-5.0) g/dL Micro Results-Entire Visit: Microbiology 01/31/24 20:00 Urine Culture - Final Urine, Void MIXED KOFFI; 3 OR MORE TYPES. NO PREDOMINANT ORGANISM. NO FURTHER WORKUP. PLEASE RESUBMIT IF CLINICALLY INDICATED. 01/31/24 Unknown Stool Culture Result 1 - Final Stool Not Reportable Stool Culture Result 2 - Final Not Reportable Stool Culture Result 3 - Final Not Reportable Stool Culture Result 4 - Final Not Reportable Stool Culture Organism Suscept - Final Not Reportable Campylobacter Result 1 - Final Not Reportable Campylobacter Result 2 - Final Not Reportable Campylobactor Result 3 - Final Not Reportable Campylobacter Result 4 - Final Not Reportable Campylobactor Susceptibility - Final Not Reportable - Radiology Exams Ordered Rad Exams-Entire Visit: Radiology Procedures Category Date Time Status CHEST 1 VIEW (PORTABLE) Urgent Exams 02/01/24 10:35 Completed MRA BRAIN WITH CONTRAST [MRI] Routine Exams 02/03/24 00:01 Ordered MRA NECK WITH CONTRAST [MRI] Routine Exams 02/03/24 00:01 Ordered MRI BRAIN W/O CONTRAST [MRI] Routine Exams 02/01/24 15:19 Completed - Procedures and Test Procedures and Tests throughout Hospitalization: Therapy Orders & Screens 01/31/24 15:07 PT Eval & Treat (MD Order) ONCE Reason for Eval:: weakness Diagnosis: hypokalemia/aphasia OT Eval and Treat (MD Order) ONCE Comment: Physician Instructions: Reason For Exam: Diagnosis: hypokalemia/aphasia Discharge Exam General Appearance: no apparent distress Neurologic Exam: alert, oriented x 3, cooperative Eye Exam: PERRL Ears, Nose, Throat Exam: normal ENT inspection Neck Exam: normal inspection Respiratory Exam: crackles/rales Cardiovascular Exam: regular rate/rhythm, normal heart sounds Gastrointestinal/Abdomen Exam: soft, normal bowel sounds Pelvic Exam: deferred Rectal Exam: deferred Back Exam: normal inspection Extremity Exam: normal inspection Skin Exam: normal color Final Diagnosis/Problem List - Final Discharge Diagnosis/Problem (1) Pneumonia Current Visit: Yes Status: Acute Code(s): J18.9 - PNEUMONIA, UNSPECIFIED ORGANISM (2) Hypokalemia Current Visit: Yes Status: Resolved Code(s): E87.6 - HYPOKALEMIA (3) Leukocytosis Current Visit: Yes Status: Resolved Code(s): D72.829 - ELEVATED WHITE BLOOD CELL COUNT, UNSPECIFIED (4) Aphasia Current Visit: Yes Status: Resolved Code(s): R47.01 - APHASIA (5) Unsteady gait Current Visit: Yes Status: Chronic Code(s): R26.81 - UNSTEADINESS ON FEET (6) HTN (hypertension) Current Visit: Yes Status: Chronic Code(s): I10 - ESSENTIAL (PRIMARY) HYPERTENSION (7) HLD (hyperlipidemia) Current Visit: Yes Status: Chronic Code(s): E78.5 - HYPERLIPIDEMIA, UNSPECIFIED (8) Diarrhea Current Visit: Yes Status: Resolved Code(s): R19.7 - DIARRHEA, UNSPECIFIED (9) Anemia Current Visit: Yes Status: Chronic Code(s): D64.9 - ANEMIA, UNSPECIFIED - Discharge Discharge Date: 02/03/24 Disposition: HOME HEALTH SERVICE Condition: Good Prescriptions: New Clopidogrel Bisulfate [PLAVIX Tablet] 75 mg PO DAILY 30 Days #30 tablet Cefpodoxime Proxetil 200 mg [Vantin 200 mg] 200 mg PO BID 7 Days #14 tablet Continue Travorpost Ophth [Travatan 0.004% Opth Gena] 2.5 ml OP HS Pravastatin Sodium [Pravachol] 40 mg PO HS Oxybutynin Chloride [Oxybutynin Chloride ER] 5 mg PO TID Metoprolol Succinate 25 mg PO DAILY Citalopram Hydrobromide [Celexa] 10 mg PO DAILY Trazodone HCl 50 mg [Desyrel 50 mg] 75 mg PO HS Tramadol HCl 50 mg [Ultram 50 mg] 50 mg PO [id number] PRN PRN Reason: Pain Gabapentin [Neurontin ] 400 mg PO TID Buspirone HCl 5 mg [Buspar 5 mg] 10 mg PO TID Bumetanide 1 mg [Bumex 1 mg] 1 mg PO DAILY Aspirin EC 81 mg [Ecotrin 81 mg] 81 mg PO DAILY Trimethoprim 100 mg PO DAILY Famotidine [Pepcid] 40 mg PO DAILY 30 Days #30 tablet PANTOPRAZOLE 40 mg Tablet [Protonix 40MG Tablet] 40 mg PO QAM 30 Days # 30 tab Losartan Potassium 50 mg [Cozaar 50 MG] 50 mg PO DAILY Non-Formulary Drug [Non-Formulary Bulk Item] 1 tab PO TID Additional Instructions: [facility] HAS BEEN SET UP. THEY WILL CALL YOU TO ARRANGE A TIME TO COME SEE YOU. THEIR PHONE NUMBER IS [phone] IF YOU NEED ANYTHING BEFORE THEIR FIRST VISIT Plavix and aspirin for 21 days, than discontinue aspirin and continue Plavix only Follow up with: CHRISTOPHER HERNADEZ MD [Primary Care Provider] - 02/13/24 10:30 am
[2024-02-03 05:14] LABS: Absolute Neutrophil Ct (ANC) 3.43 x10^3/uL (1.56-6.13); BASOPHIL % 0.9 % (0.1-1.2); Basophil (Absolute #) 0.06 x10^3/uL (0.01-0.08); Eosinophil % 2.6 % (0.7-5.8); Eosinophil (Absolute #) 0.17 x10^3/uL (0.04-0.36); Hematocrit 28.6 % (34.1-44.9); Hemoglobin 9.2 g/dL (11.2-15.7); IMMATURE GRAN # 0.09 x10^3u/L (0.001-0.031); IMMATURE GRAN % 1.4 % (0.001-0.429); Lymphocyte (Absolute #) 2.07 x10^3/uL (1.18-3.74); Lymphocytes % 31.4 % (19.3-51.7); Mean Corpuscular Hemoglobin 30.9 pg (25.6-32.2); Mean Corpuscular Hgb Concent. 32.2 g/dL (32.2-35.5); Monocyte (Absolute #) 0.78 x10^3/uL (0.24-0.86); Monocytes % 11.8 % (4.7-12.5); Neutrophil % 51.9 % (34.0-71.1); Platelet Count 227 x10^3/uL (182-369); Red Blood Count 2.98 x10^6/uL (3.93-5.22); Red Cell Distribution Width 13.9 % (11.7-14.4); White Blood Count 6.6 x10^3/uL (3.98-10.04)
[2024-02-03 05:26] LABS: ALBUMIN 3.3 g/dL (3.5-5.0); ANION GAP 9.8 MEQ/L (5-15); BILIRUBIN,TOTAL 0.5 mg/dL (0.2-1.3); Calcium 9.6 mg/dL (8.4-10.2); Creatinine 1 0.9 mg/dL (0.52-1.04); Potassium 3.8 mmol/L (3.5-5.1); Total Protein 6.5 g/dL (6.3-8.2)
[2024-02-03 09:24] LABS: Iron 27 ug/dL (37-170); Iron Saturation 15 % (20-39); TIBC 181 ug/dL (265-462)
[2024-02-03] MEDS: NON-FORMULARY ITEM PO SCH (10:13)
[2024-02-03 11:48] VITALS: BP 140/60; PULSE 80; TEMP 97.6; O2SAT 97
== END 2024-02-03 12:10 | disposition home health service (06) ==
LOC: ED 11:20 → MED SURG 14:01
PROVIDERS: ADMIT Internal Medicine; ATTEND Internal Medicine
DX: J18.9 Pneumonia, unspecified organism (principal); E87.6 Hypokalemia; D72.829 Elevated white blood cell count, unspecified; R47.01 Aphasia; R26.81 Unsteadiness on feet; I10 Essential (primary) hypertension; E78.5 Hyperlipidemia, unspecified; R19.7 Diarrhea, unspecified; D64.9 Anemia, unspecified; I25.10 Atherosclerotic heart disease of native coronary artery without angina pectoris; I25.2 Old myocardial infarction; Z79.899 Other long term (current) drug therapy
CPT/HCPCS: 36000; 36415; 70450; 70551; 71045; 80053; 80061; 81001; 82140; 82607; 82728; 82746; 82805; 83036; 83540; 83550; 83605; 83721; 83735; 84132; 84443; 84484; 85025; 85610; 85730; 87086; 93005; 93306; 97110; 97161; 97165; 97530; 99285; Q3014; 93268; J0456; J0696; J2405; J3480; A9270-GY; G0378

== ENCOUNTER 2024-08-06 11:59 | Observation (INO) | payer MEDICARE ==
[2024-08-06 13:24] LABS: Absolute Neutrophil Ct (ANC) 6.89 x10^3/uL (1.56-6.13); BASOPHIL % 0.5 % (0.1-1.2); Basophil (Absolute #) 0.05 x10^3/uL (0.01-0.08); Eosinophil % 0.3 % (0.7-5.8); Eosinophil (Absolute #) 0.03 x10^3/uL (0.04-0.36); Hematocrit 36.7 % (34.1-44.9); IMMATURE GRAN # 0.04 x10^3u/L (0.001-0.031); IMMATURE GRAN % 0.4 % (0.001-0.429); Lymphocyte (Absolute #) 2.15 x10^3/uL (1.18-3.74); Lymphocytes % 21.8 % (19.3-51.7); Mean Cell Volume 92.2 fL (79.4-94.8); Mean Corpuscular Hemoglobin 30.2 pg (25.6-32.2); Mean Corpuscular Hgb Concent. 32.7 g/dL (32.2-35.5); Mean Platelet Volume 10.4 fL (9.4-12.3); Monocytes % 7.1 % (4.7-12.5); Neutrophil % 69.9 % (34.0-71.1); Platelet Count 216 x10^3/uL (182-369); Red Blood Count 3.98 x10^6/uL (3.93-5.22); Red Cell Distribution Width 13.7 % (11.7-14.4); White Blood Count 9.9 x10^3/uL (3.98-10.04)
--- NOTE | 2024-08-06 13:31 | XRAY ---
Indication: Head injury following fall. Multiple contiguous axial images obtained through the head without contrast. Comparison: January 31, 2024 Again age-appropriate global atrophy, mild periventricular degenerative micro-ischemia bilaterally, and remote lacunar infarcts external capsule bilaterally. No acute intracranial hemorrhage, abnormal extra-axial fluid collection, or mass effect. Fourth ventricle is midline without hydrocephalus. Bony calvarium intact. Visualized paranasal sinuses and mastoid air cells are clear. Impression: Stable nonacute senile brain with remote external capsule lacunar infarcts.
--- NOTE | 2024-08-06 13:33 | XRAY ---
Indication: Status post fall. Comparison: March 06, 2024 Portable chest remains inflated and clear with incidental left base calcified granuloma. Heart not enlarged. Bony thorax intact again with osteopenia and mild degenerative changes. No new/acute findings.
--- NOTE | 2024-08-06 13:33 | XRAY ---
Indication: Status post fall. Comparison: None Single AP pelvis demonstrates osteopenia, moderate lower lumbar degenerative spondylosis, and incompletely visualized right hip arthroplasty. No acute bony, articular, or soft tissue abnormalities.
[2024-08-06 13:37] LABS: ALBUMIN 4.3 g/dL (3.5-5.0); ANION GAP 12.6 MEQ/L (5-15); BILIRUBIN,TOTAL 0.6 mg/dL (0.2-1.3); Calcium 10.1 mg/dL (8.4-10.2); Creatinine 1 0.78 mg/dL (0.52-1.04); EST GLOMERULAR FILTRATION RATE 77.2 ML/MIN; Potassium 3.8 mmol/L (3.5-5.1)
[2024-08-06 13:40] LABS: Appearance Cloudy (Clear); Bacteria Many /HPF (None Seen); Bilirubin Negative (Negative); Blood Small (Negative); Epithelial Cells None Seen /HPF (None Seen); Glucose, Urine Negative (Negative); Hyaline Casts NONE SEEN /LPF (0-2); Ketones 15 (Negative); Leukocyte Esterase Moderate (Negative); Nitrite Positive (Negative); Ph 5.5 (4.6-8.0); Protein,Urine Dip 100 (Negative); RBC 0-2 /HPF (0-5); Urobilinogen 0.2 mg/dL (0.2); WBC >100 /HPF (0-5)
[2024-08-06] MEDS ORDERED: ROCEPHIN 1 GM / 100 ML NaCl 1 GM/100 ML IVPB IV ONE (14:37)
[2024-08-06] MEDS: ROCEPHIN 1 GM / 100 ML NaCl 1 GM/100 ML IVPB IV ONE (14:39)
--- NOTE | 2024-08-06 15:26 | PCM.HP ---
History of Present Illness - Chief Complaint Chief Complaint: UTI Date: 08/06/24 History of Present Illness: is a 78 year old female with pmhx of HTN, [place], hyperlipidemia, OA, GERD, depression, and chronic left knee pain. Pt reports she has not been feeling well since Tuesday. She states she has had several falls recently and last night she fell and could not get up from the floor. She took her alert monitor off and was not near it. Her niece whom is her POA and caregiver stated the pt had her phone on her but did not think to call. UA in ER shows UTI and antibiotic started. Pt lives alone and niece feels she needs long term placement. Pt c/o Left knee pain and will be f/u OP with Dr. Carter for further evaluation. BP elevated and pt reports she did not take her BP medication today. Will restart meds. CK 184, will start IVF. She is cold and overall weak. Pt eval ordered. She denies CP, SOB, N/V. - Review of Systems Constitutional: Weakness, No Fever Eyes: No Symptoms Ears, Nose, & Throat: No Symptoms Respiratory: No Cough, No Short Of Breath Cardiac: No Chest Pain, No Edema, No Syncope Abdominal/Gastrointestinal: Abdominal Pain, Diarrhea, No Nausea, No Vomiting Genitourinary Symptoms: No Dysuria Musculoskeletal: No Back Pain, No Neck Pain Skin: No Rash Neurological: No Dizziness, No Focal Weakness, No Sensory Changes Psychological: No Symptoms Endocrine: No Symptoms Hematologic/Lymphatic: No Symptoms Immunological/Allergic: No Symptoms Medications & Allergies Home Medications: Home Medication List Citalopram Hydrobromide [Celexa] 10 mg PO DAILY 05/19/17 [History Confirmed 08/06/24] Metoprolol Succinate 25 mg PO DAILY 05/19/17 [History Confirmed 08/06/24] Oxybutynin Chloride [Oxybutynin Chloride ER] 5 mg PO TID 05/19/17 [History Confirmed 08/06/24] Pravastatin Sodium [Pravachol] 40 mg PO HS 05/19/17 [History Confirmed 08/06/24] Aspirin EC 81 mg [Ecotrin 81 mg] 81 mg PO DAILY 09/05/22 [History Confirmed 08/06/24] Bumetanide 1 mg [Bumex 1 mg] 1 mg PO DAILY 09/05/22 [History Confirmed 08/06/24] Buspirone HCl 5 mg [Buspar 5 mg] 10 mg PO TID 09/05/22 [History Confirmed 08/06/24] Gabapentin [Neurontin ] 400 mg PO TID 09/05/22 [History Confirmed 08/06/24] Tramadol HCl 50 mg [Ultram 50 mg] 50 mg PO DAILY PRN 09/05/22 [History Confirmed 08/06/24] Trazodone HCl 50 mg [Desyrel 50 mg] 50 mg PO HS 09/05/22 [History Confirmed 08/06/24] Trimethoprim 100 mg PO DAILY 09/05/22 [History Confirmed 08/06/24] PANTOPRAZOLE 40 mg Tablet [Protonix 40MG Tablet] 40 mg PO QAM 30 Days #30 tab 09/10/22 [Rx Confirmed 08/06/24] Losartan Potassium 50 mg [Cozaar 50 MG] 50 mg PO DAILY 01/31/24 [History Confirmed 08/06/24] Non-Formulary Drug [Non-Formulary Bulk Item] 1 tab PO TID 01/31/24 [History Confirmed 08/06/24] Ergocalciferol (Vitamin D2) [Vitamin D2] 50,000 unit PO UD 08/06/24 [History Confirmed 08/06/24] Famotidine [Pepcid] 20 mg PO DAILY 08/06/24 [History Confirmed 08/06/24] Allergies/Adverse Reactions: Allergies Allergy/AdvReac Type Severity Reaction Status Date / Time lisinopril AdvReac Cough Verified 08/06/24 15:21 - Past Medical History Past Medical History: Yes Neurological History: No Pertinent History ENT History: Cataracts, Macular Degeneration Cardiac History: High Cholesterol, Hypertension, Myocardial Infarction ([place]) Respiratory History: No Pertinent History Endocrine Medical History: No Pertinent History Musculoskelatal History: Osteoarthritis GI Medical History: Gallbladder Disease History: Other Pyscho-Social History: Depression Reproductive Disorders: Other Comment: R KNEE REPLACEMENT, 2017 "MASSIVE HEART ATTACK", MDD, GERD, SHOTS IN EYES 1X MONTH FOR GLAUCOMA, INCONTINENCE. PATIENT REPORTS SHE NEEDS A LEFT KNEE REPLACEMENT BUT IS NOT A SURGICAL CANDIDATE PER CARDIOLOGY. PATIENT DENIES USE OF KNEE BRACE OR HX OF CORTISONE INJECTIONS. - Past Surgical History Past Surgical History: Yes Neuro Surgical History: No Pertinent History Cardiac History: Cardiac Catheterization Respiratory Surgery: No Pertinent History GI Surgical History: Cholecystectomy Genitourinary Surgical Hx: Other Musculskeletal Surgical Hx: Joint Replacement, Other Female Surgical History: Lumpectomy Other Surgical History: march 15 2017 bladder tie up and had "massive heart at tack", left breast lumpectomy, astish eye inj.for degenerative, lap emiliano.Right hip repair,Righ knee replacement x two - Social History Smoking Status: Never smoker Exposure to second hand smoke: Yes Alcohol: None Drug Use: none - Social Determinants of Health Will the patient participate in the screening: Yes Do you worry about a steady place to live?: No Do you have any problems with any of the following?: No known problems In the past 12 months,have you had to go without utilities?: No Have you or anyone in your house had to go without enough: No Transportation Issues: No Has anyone in your support network made you feel unsafe?: No Does the patient want assistance with any of the above?: No - Physical Exam Vital Signs: Vital Signs - 24 hr Temp Pulse Resp BP BP Pulse Ox 08/06/24 15:00 76 20 167/73 96 08/06/24 14:30 75 19 164/91 98 08/06/24 14:01 79 19 137/102 100 08/06/24 13:30 74 17 181/71 97 08/06/24 13:06 79 16 155/92 96 08/06/24 12:30 72 166/82 99 08/06/24 12:00 98.4 F 76 16 143/81 99 General Appearance: no apparent distress, alert Neurologic Exam: alert, oriented x 3, cooperative, normal mood/affect, nml cerebellar function, nml station & gait, sensation nml, No motor deficits Eye Exam: PERRL/EOMI, eyes nml inspection Ears, Nose, Throat Exam: normal ENT inspection, TMs normal, pharynx normal, moist mucous membranes Neck Exam: normal inspection, non-tender, supple, full range of motion Respiratory Exam: normal breath sounds, lungs clear, No respiratory distress Cardiovascular Exam: regular rate/rhythm, normal heart sounds, normal peripheral pulses Gastrointestinal/Abdomen Exam: soft, normal bowel sounds, tenderness (LLQ with palpation), No mass Back Exam: normal inspection, normal range of motion, No CVA tenderness, No vertebral tenderness Extremity Exam: normal inspection, normal range of motion, pelvis stable Skin Exam: normal color, warm, dry, No rash Lymphatic Exam: No adenopathy Results - Labs Lab/Micro Results: Lab Results-Last 24 Hours 08/06/24 08/06/24 08/06/24 Range/Units 13:20 13:20 13:20 WBC 9.9 (3.98-10.04) x10^3/uL RBC 3.98 (3.93-5.22) x10^6/uL Hgb 12.0 (11.2-15.7) g/dL Hct 36.7 (34.1-44.9) % MCV 92.2 (79.4-94.8) fL MCH 30.2 (25.6-32.2) pg MCHC 32.7 (32.2-35.5) g/dL RDW 13.7 (11.7-14.4) % Plt Count 216 (182-369) x10^3/uL MPV 10.4 (9.4-12.3) fL Gran % 69.9 (34.0-71.1) % Immature Gran % (Auto) 0.4 (0.001-0.429) % Nucleat RBC Rel Count 0.0 (0.00-0.2) % Eos # (Auto) 0.03 L (0.04-0.36) x10^3/uL Immature Gran # (Auto) 0.04 H (0.001-0.031) x10^3u/L Absolute Lymphs (auto) 2.15 (1.18-3.74) x10^3/uL Absolute Monos (auto) 0.70 (0.24-0.86) x10^3/uL Absolute Nucleated RBC 0.00 (0.00-0.012) x10^3u/L Lymphocytes % 21.8 (19.3-51.7) % Monocytes % 7.1 (4.7-12.5) % Eosinophils % 0.3 L (0.7-5.8) % Basophils % 0.5 (0.1-1.2) % Absolute Granulocytes 6.89 H (1.56-6.13) x10^3/uL Basophils # 0.05 (0.01-0.08) x10^3/uL Sodium 140 (135-145) mmol/L Potassium 3.8 (3.5-5.1) mmol/L Chloride 105 (98-107) mmol/L Carbon Dioxide 26 (22-30) mmol/L Anion Gap 12.6 (5-15) MEQ/L BUN 25 H (7-17) mg/dL Creatinine 0.78 (0.52-1.04) mg/dL Estimated GFR 77.2 ML/MIN Glucose 111 H (74-106) mg/dL Calcium 10.1 (8.4-10.2) mg/dL Total Bilirubin 0.60 (0.2-1.3) mg/dL AST 33 (14-36) U/L ALT 18 (0-35) U/L Alkaline Phosphatase 86 (38-126) U/L Creatine Kinase 184 H (30-135) U/L Troponin I (0.000-0.033) ng/mL Serum Total Protein 7.0 (6.3-8.2) g/dL Albumin 4.3 (3.5-5.0) g/dL Urine Color Yellow (Yellow) Urine Appearance Cloudy A (Clear) Urine pH 5.5 (4.6-8.0) Ur Specific [place] 1.020 (1.005-1.030) Urine Protein 100 A (Negative) Urine Glucose (UA) Negative (Negative) mg/dL Urine Ketones 15 A (Negative) Urine Blood Small A (Negative) Urine Nitrite Positive A (Negative) Urine Bilirubin Negative (Negative) Urine Urobilinogen 0.2 (0.2) mg/dL Ur Leukocyte Esterase Moderate A (Negative) U Hyaline Cast (Auto) NONE SEEN (0-2) /LPF Urine Microscopic RBC 0-2 (0-5) /HPF Urine Microscopic WBC >100 A (0-5) /HPF Ur Epithelial Cells None Seen (None Seen) /HPF Urine Bacteria Many A (None Seen) /HPF Urine Culture Reflexed ORDERED SEPARATELY (NO) 08/06/ Range/Units 13:20 WBC (3.98-10.04) x10^3/uL RBC (3.93-5.22) x10^6/uL Hgb (11.2-15.7) g/dL Hct (34.1-44.9) % MCV (79.4-94.8) fL MCH (25.6-32.2) pg MCHC (32.2-35.5) g/dL RDW (11.7-14.4) % Plt Count (182-369) x10^3/uL MPV (9.4-12.3) fL Gran % (34.0-71.1) % Immature Gran % (Auto) (0.001-0.429) % Nucleat RBC Rel Count (0.00-0.2) % Eos # (Auto) (0.04-0.36) x10^3/uL Immature Gran # (Auto) (0.001-0.031) x10^3u/L Absolute Lymphs (auto) (1.18-3.74) x10^3/uL Absolute Monos (auto) (0.24-0.86) x10^3/uL Absolute Nucleated RBC (0.00-0.012) x10^3u/L Lymphocytes % (19.3-51.7) % Monocytes % (4.7-12.5) % Eosinophils % (0.7-5.8) % Basophils % (0.1-1.2) % Absolute Granulocytes (1.56-6.13) x10^3/uL Basophils # (0.01-0.08) x10^3/uL Sodium (135-145) mmol/L Potassium (3.5-5.1) mmol/L Chloride (98-107) mmol/L Carbon Dioxide (22-30) mmol/L Anion Gap (5-15) MEQ/L BUN (7-17) mg/dL Creatinine (0.52-1.04) mg/dL Estimated GFR ML/MIN Glucose (74-106) mg/dL Calcium (8.4-10.2) mg/dL Total Bilirubin (0.2-1.3) mg/dL AST (14-36) U/L ALT (0-35) U/L Alkaline Phosphatase (38-126) U/L Creatine Kinase (30-135) U/L Troponin I < 0.012 (0.000-0.033) ng/mL Serum Total Protein (6.3-8.2) g/dL Albumin (3.5-5.0) g/dL Urine Color (Yellow) Urine Appearance (Clear) Urine pH (4.6-8.0) Ur Specific [place] (1.005-1.030) Urine Protein (Negative) Urine Glucose (UA) (Negative) mg/dL Urine Ketones (Negative) Urine Blood (Negative) Urine Nitrite (Negative) Urine Bilirubin (Negative) Urine Urobilinogen (0.2) mg/dL Ur Leukocyte Esterase (Negative) U Hyaline Cast (Auto) (0-2) /LPF Urine Microscopic RBC (0-5) /HPF Urine Microscopic WBC (0-5) /HPF Ur Epithelial Cells (None Seen) /HPF Urine Bacteria (None Seen) /HPF Urine Culture Reflexed (NO) - Radiology Impressions Radiology Exams & Impressions: Radiology Procedures Category Date Time Status CHEST 1 VIEW (PORTABLE) Stat Exams 08/06/24 12:37 Completed HEAD WITHOUT CONTRAST [CT] Stat Exams 08/06/24 12:37 Completed PELVIS (1 OR 2 VIEWS) Stat Exams 08/06/24 12:37 Completed Assessment/Plan (1) UTI (urinary tract infection) Current Visit: Yes Status: Acute Assessment & Plan: - ceftriaxone IV - IVF - UA reviewed - UC pending - CBC, CMP reviewed Code(s): N39.0 - URINARY TRACT INFECTION, SITE NOT SPECIFIED (2) Fall from ground level Current Visit: Yes Status: Acute Assessment & Plan: - CK 184 - IVF started - Tele - PT eval - Pelvis XR negative - Head CT negative for acute concerns - CXR negative Code(s): W18.30XA - FALL ON SAME LEVEL, UNSPECIFIED, INITIAL ENCOUNTER (3) Weakness Current Visit: Yes Status: Acute Assessment & Plan: - PT eval - 2:2 UTI - consider placement Code(s): R53.1 - WEAKNESS (4) HLD (hyperlipidemia) Current Visit: No Status: Chronic Assessment & Plan: - continue statin Code(s): E78.5 - HYPERLIPIDEMIA, UNSPECIFIED (5) HTN (hypertension) Current Visit: No Status: Chronic Assessment & Plan: - restart home meds - BP elevated but did not take meds this AM Code(s): I10 - ESSENTIAL (PRIMARY) HYPERTENSION (6) Depression Current Visit: Yes Status: Chronic Assessment & Plan: - continue home meds Code(s): F32.A - DEPRESSION, UNSPECIFIED (7) Chronic pain of left knee Current Visit: Yes Status: Chronic Assessment & Plan: - Pt to f/u OP with Dr. Emma MEMBRENO - She may need appointment at d/c. - Left knee XR VTE: Lovenox PPI: Pantoprazole Next of KIN: Katalina Sutton, D/C plan: 2-3 days Code status: Full Code(s): M25.562 - PAIN IN LEFT KNEE; G89.29 - OTHER CHRONIC PAIN
[2024-08-06] MEDS ORDERED: MEDICATION INTERVENTION MC SCH ×2 (16:00)
[2024-08-06] MEDS ORDERED: Pepcid 20 MG PO SCH (16:00)
[2024-08-06] MEDS: Sodium Chloride 0.9% 1000 ML 1,000 ML IV SCH (16:17)
--- NOTE | 2024-08-06 16:32 | XRAY ---
Indication: Pain following fall. Comparison: June 22, 2010 Portable AP/crosstable lateral left knee now demonstrates osteopenia, mild/moderate tricompartmental degenerative changes, and minimal scattered vascular calcifications. Incidental posterior fabella. No acute bony, articular, or soft tissue abnormalities.
[2024-08-06] MEDS: Ditropan XL 5 MG PO SCH (16:57)
[2024-08-06] MEDS: Cozaar 50 MG PO SCH (16:58)
[2024-08-06] MEDS: Toprol-Xl 25MG Tablets PO SCH (16:58)
[2024-08-06] MEDS: BUMEX 1 MG PO SCH (16:58)
[2024-08-06] MEDS: BUSPAR 5 MG PO SCH (16:58)
[2024-08-06] MEDS: Pepcid 20 MG PO SCH (16:58)
[2024-08-06] MEDS: Protonix 40MG Tablet PO SCH (16:58)
[2024-08-06] MEDS: Neurontin PO SCH (16:58)
[2024-08-06] MEDS: ECOTRIN 81 MG PO SCH (16:59)
[2024-08-06] MEDS: FEOSOL 325 MG PO SCH (16:59)
[2024-08-06] MEDS: ceLEXa 20 MG PO SCH (16:59)
[2024-08-06] MEDS: ENOXAPARIN SODIUM SQ SCH (17:00)
--- NOTE | 2024-08-06 18:27 | ERPHSYRPT ---
- History of Present Illness Time Seen by Provider: 08/06/24 12:22 Source: patient Exam Limitations: no limitations Patient Subjective Stated Complaint: pt states that she had just finished putting on her pjs and slid out of bed. pt states that she hit her head. 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 Patient states that she did fall at home. States that she was trying to sit up in bed slipped off the side of the bed. States that she was unable to get up and laid there for 12 hours. Patient has been having more falls frequently. Having some left knee pain that needs to be redone or have some type of surgery per the adult niece in the room. Patient denies any chest pain, shortness of breath, nausea, vomiting. She denies hitting her head, denies any other injuries. Allergies/Adverse Reactions: lisinopril Adverse Reaction (Verified 08/06/24 15:21) Cough Home Medications: Citalopram Hydrobromide [Celexa] 10 mg PO DAILY 05/19/17 [History] Metoprolol Succinate 25 mg PO DAILY 05/19/17 [History] Oxybutynin Chloride [Oxybutynin Chloride ER] 5 mg PO TID 05/19/17 [History] Pravastatin Sodium [Pravachol] 40 mg PO HS 05/19/17 [History] Aspirin EC 81 mg [Ecotrin 81 mg] 81 mg PO DAILY 09/05/22 [History] Bumetanide 1 mg [Bumex 1 mg] 1 mg PO DAILY 09/05/22 [History] Buspirone HCl 5 mg [Buspar 5 mg] 10 mg PO DAILY 09/05/22 [History] Gabapentin [Neurontin ] 400 mg PO TID 09/05/22 [History] Tramadol HCl 50 mg [Ultram 50 mg] 50 mg PO DAILY PRN 09/05/22 [History] Trazodone HCl 50 mg [Desyrel 50 mg] 50 mg PO HS 09/05/22 [History] Trimethoprim 100 mg PO DAILY 09/05/22 [History] Losartan Potassium 50 mg [Cozaar 50 MG] 50 mg PO DAILY 01/31/24 [History] Non-Formulary Drug [Non-Formulary Bulk Item] 1 tab PO TID 01/31/24 [History] Ergocalciferol (Vitamin D2) [Vitamin D2] 50,000 unit PO UD 08/06/24 [History] Famotidine [Pepcid] 20 mg PO DAILY 08/06/24 [History] Latanoprost/Pf [Iyuzeh 0.005% Eye Drop] 1 drop DROPS DAILY 08/06/24 [History] Hx Tetanus, Diphtheria Vaccination/Date Given: Yes Hx Influenza Vaccination/Date Given: No Hx Pneumococcal Vaccination/Date Given: No (unknown) Immunizations Up to Date: No Travel Risk - International Travel Have you traveled outside of the country in past 3 weeks: No - Emerging Infectious Disease Are you exhibiting symptoms associated with any current EIDs: No - Past Medical History Pertinent Past Medical History: Yes Neurological History: No Pertinent History ENT History: Cataracts, Macular Degeneration Cardiac History: High Cholesterol, Hypertension, Myocardial Infarction (MD) Respiratory History: No Pertinent History Endocrine Medical History: No Pertinent History Musculoskeletal History: Osteoarthritis GI Medical History: Gallbladder Disease History: Other Psycho-Social History: Depression Female Reproductive Disorders: Other Other Medical History: R KNEE REPLACEMENT, 2017 "MASSIVE HEART ATTACK", MDD, GERD, SHOTS IN EYES 1X MONTH FOR GLAUCOMA, INCONTINENCE. PATIENT REPORTS SHE NEEDS A LEFT KNEE REPLACEMENT BUT IS NOT A SURGICAL CANDIDATE PER CARDIOLOGY. PATIENT DENIES USE OF KNEE BRACE OR HX OF CORTISONE INJECTIONS. - Past Surgical History Past Surgical History: Yes Neuro Surgical History: No Pertinent History Cardiac: Cardiac Catheterization Respiratory: No Pertinent History Gastrointestinal: Cholecystectomy Genitourinary: Other Musculoskeletal: Joint Replacement, Other Female Surgical History: Lumpectomy Other Surgical History: march 15 2017 bladder tie up and had "massive heart attack", left breast lumpectomy, satish eye inj.for degenerative, lap emiliano.Right hip repair,Righ knee replacement x two - Social History Smoking Status: Never smoker Exposure to second hand smoke: Yes Drug Use: none Patient Lives Alone: No - Social Determinants of Health Will the patient participate in the screening: Yes Do you worry about a steady place to live?: No Do you have any problems with any of the following?: No known problems In the past 12 months,have you had to go without utilities?: No Transportation Issues: No Has anyone in your support network made you feel unsafe?: No Have you or anyone in your house had to go without enough: No - Nursing Vital Signs Nursing Vital Signs: Initial Vital Signs Temperature 98.4 F 08/06/24 12:00 Pulse Rate 76 08/06/24 12:00 Respiratory Rate 16 08/06/24 12:00 Blood Pressure 143/81 08/06/24 12:00 O2 Sat by Pulse Oximetry 99 08/06/24 12:00 Pain Scale Pain Intensity 0 - Physical Exam SpO2: 98 Comments: 08/06/24 18:24 Review of Systems Constitutional: Negative for fever. Generalized weakness and fatigue HENT: Negative for congestion. Respiratory: Negative for shortness of breath. Cardiovascular: Negative for chest pain. Gastrointestinal: Negative for abdominal pain. Genitourinary: Negative for dysuria. Musculoskeletal: Negative for back pain. Skin: Negative for rash. Neurological: Negative for headaches. Psychiatric/Behavioral: Negative for behavioral problems. All other systems reviewed and are negative. Physical Exam Vitals signs and nursing note reviewed. Constitutional: Appearance: Patient is well-developed. HENT: Head: Normocephalic and atraumatic. Eyes: Conjunctiva/sclera: Conjunctivae normal. Neck: Musculoskeletal: Normal range of motion. Trachea: No tracheal deviation. Cardiovascular: Rate and Rhythm: Normal rate. Pulmonary: Effort: Pulmonary effort is normal. No respiratory distress. Abdominal: Palpations: Abdomen is soft. Musculoskeletal: General: No deformity. Patient has no hip pain, does have some right chest abrasions. No hip abnormalities, other signs of trauma. Head is atraumatic, no bruising. Some tenderness on the right side of the head. No overlying skin changes. No obvious deformity, sensation intact, 2+ capillary refill, 2 point tactile discrimination intact. 5 out of 5 strength. Full range of motion without pain. Compartments are soft, nontender. Overlying skin shows no tenting, bruising, ecchymosis. Skin: General: Skin is warm and dry. Neurological/ Psychiatric: Mental Status: Mental status, behavior, interaction with environment is appropriate for patient's age and condition - Course Nursing assessment & vital signs reviewed: Yes EKG Interpreted by Me: Sinus Rhythm (EKG demonstrates sinus rhythm, rate 74, CT interval 146, QRS 86, QTc is 482, no other STEMI or other ST changes) Ordered Tests: Active Orders 24 hr Category Date Time Status Call Admit Doctor for Orders ON ADMISSION Care 08/06/24 14:39 Active Brake Adjuster STAT Care 08/06/24 12:37 Active Code Status Order ROUTINE Care 08/06/24 14:39 Active EKG-ER Only STAT Care 08/06/24 12:36 Completed IV Insertion STAT Care 08/06/24 12:[address] in Observation ROUTINE Care 08/06/24 14:39 Active CHEST 1 VIEW (PORTABLE) Stat Exams 08/06/24 12:37 Completed HEAD WITHOUT CONTRAST [CT] Stat Exams 08/06/24 12:37 Completed PELVIS (1 OR 2 VIEWS) Stat Exams 08/06/24 12:37 Completed CBC W DIFF Stat Lab 08/06/24 13:20 Completed CK-Creatinine Phosphokinase Stat Lab 08/06/24 13:20 Completed CMP Stat Lab 08/06/24 13:20 Completed CULTURE,URINE Stat Lab 08/06/24 13:20 Received TROPONIN Q4H Lab 08/06/24 13:20 Completed TROPONIN Q4H Lab 08/06/24 16:42 Completed TROPONIN Q4H Lab 08/06/24 20:45 Ordered UA W/RFX UR CULTURE Stat Lab 08/06/24 13:20 Completed Transfer Order Routine Transfer 08/06/24 Completed Medication Summary Generic Name Dose Route Start Last Admin Trade Name Freq PRN Reason Stop Dose Admin Aspirin 81 mg 08/06/24 16:00 08/06/24 16:59 Aspirin 81 Mg Tablet.Ec PO 09/05/24 15:59 81 mg DAILY MISA Administration Bumetanide 1 mg 08/06/24 16:00 08/06/24 16:58 Bumetanide 1 Mg Tablet PO 09/05/24 15:59 1 mg DAILY MISA Administration Buspirone HCl 10 mg 08/06/24 16:00 08/06/24 16:58 Buspirone Hcl 5 Mg Tablet PO 09/05/24 15:59 10 mg TID MISA Administration Citalopram Hydrobromide 10 mg 08/06/24 16:00 08/06/24 16:59 Citalopram Hydrobromide 20 Mg Tablet PO 09/05/24 15:59 10 mg DAILY MISA Administration Enoxaparin Sodium 40 mg 08/06/24 16:00 08/06/24 17:00 Enoxaparin Sodium 40 Mg/0.4 Ml Syringe SQ 09/05/24 15:59 40 mg DAILY MISA Administration Ergocalciferol 50,000 unit 08/20/24 10:00 Ergocalciferol (Vitamin D2) 50,000 Unit Capsule PO 09/19/24 09:59 Q14D MISA Famotidine 20 mg 08/06/24 16:00 08/06/24 16:58 Famotidine 20 Mg Tablet PO 09/05/24 15:59 20 mg DAILY MISA Administration Ferrous Sulfate 325 mg 08/06/24 16:00 08/06/24 16:59 Ferrous Sulfate 325 Mg Tablet PO 09/05/24 15:59 325 mg TID MISA Administration Gabapentin 400 mg 08/06/24 16:00 08/06/24 16:58 Gabapentin 400 Mg Capsule PO 09/05/24 15:59 400 mg TID MISA Administration Sodium Chloride 1,000 mls @ 50 mls/hr 08/06/24 15:45 08/06/24 16:17 Sodium Chloride 0.9% 1000 Ml IV 09/05/24 15:44 50 mls/hr .Q20H MISA Administration Ceftriaxone Sodium 1 gm in 100 mls @ 200 mls/hr 08/07/24 10:00 Rocephin 1 Gm / 100 Ml Nacl IV 09/06/24 09:59 Q24H10 MISA Losartan Potassium 50 mg 08/06/24 16:00 08/06/24 16:58 Losartan Potassium 50 Mg Tablet PO 09/05/24 15:59 50 mg DAILY MISA Administration Metoprolol Succinate 25 mg 08/06/24 16:00 08/06/24 16:58 Metoprolol Succinate 25 Mg Xl Tab PO 09/05/24 15:59 25 mg DAILY MISA Administration Miscellaneous Information 1 each 08/06/24 16:00 Medication Intervention 1 Each Each 09/05/24 15:59 .RN TO CHECK MISA Miscellaneous Information 1 each 08/06/24 16:00 Medication Intervention 1 Each Each 09/05/24 15:59 .RN TO CHECK MISA Oxybutynin Chloride 5 mg 08/06/24 16:00 08/06/24 16:57 Oxybutynin Chloride Xl 5 Mg Tab PO 09/05/24 15:59 5 mg TID MISA Administration Pantoprazole Sodium 40 mg 08/06/24 16:00 08/06/24 16:58 Protonix (Pantoprazole) 40 Mg Tablet PO 09/05/24 15:59 40 mg QAM MISA Administration Simvastatin 40 mg 08/06/24 22:00 Simvastatin 20 Mg Tablet PO 09/05/24 21:59 HS MISA Tramadol HCl 50 mg 08/06/24 15:38 Tramadol Hcl 50 Mg Tablet PO 09/05/24 15:37 DAILY PRN PRN PAIN Trazodone HCl 50 mg 08/06/24 22:00 Trazodone Hcl 50 Mg Tablet PO 09/05/24 21:59 HS MISA Discontinued Medications Generic Name Dose Route Start Last Admin Trade Name Freq PRN Reason Stop Dose Admin Famotidine 40 mg 08/06/24 16:00 Famotidine 20 Mg Tablet PO 09/05/24 15:59 DAILY MISA Ceftriaxone Sodium 1 gm in 100 mls @ 200 mls/hr 08/06/24 14:32 08/06/24 14:39 Rocephin 1 Gm / 100 Ml Nacl IV 08/06/24 15:01 200 mls/hr STAT ONE 200 mls/hr Administration Ceftriaxone Sodium Confirm 08/06/24 14:37 Rocephin 1 Gm / 100 Ml Nacl Administered 08/06/24 14:38 Dose 1 gm in 100 mls @ ud IV .STK-MED ONE Lab/Rad Data: Laboratory Result Diagrams 08/06/24 13:20 08/06/24 13:20 Laboratory Results 08/06/24 08/06/24 08/06/24 Range/Units 13:20 13:20 13:20 WBC (3.98-10.04) x10^3/uL RBC (3.93-5.22) x10^6/uL Hgb (11.2-15.7) g/dL Hct (34.1-44.9) % MCV (79.4-94.8) fL MCH (25.6-32.2) pg MCHC (32.2-35.5) g/dL RDW (11.7-14.4) % Plt Count (182-369) x10^3/uL MPV (9.4-12.3) fL Gran % (34.0-71.1) % Immature Gran % (Auto) (0.001-0.429) % Nucleat RBC Rel Count (0.00-0.2) % Eos # (Auto) (0.04-0.36) x10^3/uL Immature Gran # (Auto) (0.001-0.031) x10^3u/L Absolute Lymphs (auto) (1.18-3.74) x10^3/uL Absolute Monos (auto) (0.24-0.86) x10^3/uL Absolute Nucleated RBC (0.00-0.012) x10^3u/L Lymphocytes % (19.3-51.7) % Monocytes % (4.7-12.5) % Eosinophils % (0.7-5.8) % Basophils % (0.1-1.2) % Absolute Granulocytes (1.56-6.13) x10^3/uL Basophils # (0.01-0.08) x10^3/uL Sodium 140 (135-145) mmol/L Potassium 3.8 (3.5-5.1) mmol/L Chloride 105 (98-107) mmol/L Carbon Dioxide 26 (22-30) mmol/L Anion Gap 12.6 (5-15) MEQ/L BUN 25 H (7-17) mg/dL Creatinine 0.78 (0.52-1.04) mg/dL Estimated GFR 77.2 ML/MIN Glucose 111 H (74-106) mg/dL Calcium 10.1 (8.4-10.2) mg/dL Total Bilirubin 0.60 (0.2-1.3) mg/dL AST 33 (14-36) U/L ALT 18 (0-35) U/L Alkaline Phosphatase 86 (38-126) U/L Creatine Kinase 184 H (30-135) U/L Troponin I < 0.012 (0.000-0.033) ng/mL Serum Total Protein 7.0 (6.3-8.2) g/dL Albumin 4.3 (3.5-5.0) g/dL Urine Color Yellow (Yellow) Urine Appearance Cloudy A (Clear) Urine pH 5.5 (4.6-8.0) Ur Specific Orange 1.020 (1.005-1.030) Urine Protein 100 A (Negative) Urine Glucose (UA) Negative (Negative) mg/dL Urine Ketones 15 A (Negative) Urine Blood Small A (Negative) Urine Nitrite Positive A (Negative) Urine Bilirubin Negative (Negative) Urine Urobilinogen 0.2 (0.2) mg/dL Ur Leukocyte Esterase Moderate A (Negative) U Hyaline Cast (Auto) NONE SEEN (0-2) /LPF Urine Microscopic RBC 0-2 (0-5) /HPF Urine Microscopic WBC >100 A (0-5) /HPF Ur Epithelial Cells None Seen (None Seen) /HPF Urine Bacteria Many A (None Seen) /HPF Urine Culture Reflexed ORDERED SEPARATELY (NO) 08/06/24 Range/Units 13:20 WBC 9.9 (3.98-10.04) x10^3/uL RBC 3.98 (3.93-5.22) x10^6/uL Hgb 12.0 (11.2-15.7) g/dL Hct 36.7 (34.1-44.9) % MCV 92.2 (79.4-94.8) fL MCH 30.2 (25.6-32.2) pg MCHC 32.7 (32.2-35.5) g/dL RDW 13.7 (11.7-14.4) % Plt Count 216 (182-369) x10^3/uL MPV 10.4 (9.4-12.3) fL Gran % 69.9 (34.0-71.1) % Immature Gran % (Auto) 0.4 (0.001-0.429) % Nucleat RBC Rel Count 0.0 (0.00-0.2) % Eos # (Auto) 0.03 L (0.04-0.36) x10^3/uL Immature Gran # (Auto) 0.04 H (0.001-0.031) x10^3u/L Absolute Lymphs (auto) 2.15 (1.18-3.74) x10^3/uL Absolute Monos (auto) 0.70 (0.24-0.86) x10^3/uL Absolute Nucleated RBC 0.00 (0.00-0.012) x10^3u/L Lymphocytes % 21.8 (19.3-51.7) % Monocytes % 7.1 (4.7-12.5) % Eosinophils % 0.3 L (0.7-5.8) % Basophils % 0.5 (0.1-1.2) % Absolute Granulocytes 6.89 H (1.56-6.13) x10^3/uL Basophils # 0.05 (0.01-0.08) x10^3/uL Sodium (135-145) mmol/L Potassium (3.5-5.1) mmol/L Chloride (98-107) mmol/L Carbon Dioxide (22-30) mmol/L Anion Gap (5-15) MEQ/L BUN (7-17) mg/dL Creatinine (0.52-1.04) mg/dL Estimated GFR ML/MIN Glucose (74-106) mg/dL Calcium (8.4-10.2) mg/dL Total Bilirubin (0.2-1.3) mg/dL AST (14-36) U/L ALT (0-35) U/L Alkaline Phosphatase (38-126) U/L Creatine Kinase (30-135) U/L Troponin I (0.000-0.033) ng/mL Serum Total Protein (6.3-8.2) g/dL Albumin (3.5-5.0) g/dL Urine Color (Yellow) Urine Appearance (Clear) Urine pH (4.6-8.0) Ur Specific Orange (1.005-1.030) Urine Protein (Negative) Urine Glucose (UA) (Negative) mg/dL Urine Ketones (Negative) Urine Blood (Negative) Urine Nitrite (Negative) Urine Bilirubin (Negative) Urine Urobilinogen (0.2) mg/dL Ur Leukocyte Esterase (Negative) U Hyaline Cast (Auto) (0-2) /LPF Urine Microscopic RBC (0-5) /HPF Urine Microscopic WBC (0-5) /HPF Ur Epithelial Cells (None Seen) /HPF Urine Bacteria (None Seen) /HPF Urine Culture Reflexed (NO) - Progress Progress: improved Progress Note: 08/06/24 18:25 Differential diagnosis includes: PNA, STEMI, NSTEMI, other infection, musculoskeletal pain, pneumothorax - We'll obtain basic labs, fluids, EKG, troponin, chest x-ray - EKG shows no ST changes - my read - O2 saturations consistently greater than 95%. - CXR shows no pneumonia, pneumothorax - my read Troponin is negative, negative head CT, negative chest x-ray, negative pelvis x- ray. UA does show a clear UTI. Given the patient's failure to thrive, inability to take care of herself, falls, UTI. I do believe the patient will need to be admitted to the hospital today. I did discuss this with on-call on-call physician, Dr. Laura. We did discuss the case in detail. Patient accepted to his service. Counseled pt/family regarding: lab results, diagnosis, need for follow-up, rad results - Departure Departure Disposition: Observation Clinical Impression: UTI (urinary tract infection), Failure to thrive, Fatigue, Fall at home Condition: Stable Critical Care Time: No
[2024-08-06] MEDS: DESYREL 50 MG PO SCH (21:53)
[2024-08-06] MEDS: ZOCOR 20MG PO SCH (21:53)
[2024-08-07 09:06] LABS: Hematocrit 33.3 % (34.1-44.9); Hemoglobin 10.6 g/dL (11.2-15.7); Mean Cell Volume 94.6 fL (79.4-94.8); Mean Corpuscular Hemoglobin 30.1 pg (25.6-32.2); Mean Corpuscular Hgb Concent. 31.8 g/dL (32.2-35.5); Platelet Count 193 x10^3/uL (182-369); Red Blood Count 3.52 x10^6/uL (3.93-5.22); Red Cell Distribution Width 14.2 % (11.7-14.4); White Blood Count 8.7 x10^3/uL (3.98-10.04)
[2024-08-07 09:18] LABS: ALBUMIN 3.6 g/dL (3.5-5.0); ANION GAP 9.6 MEQ/L (5-15); BILIRUBIN,TOTAL 0.4 mg/dL (0.2-1.3); Calcium 9.3 mg/dL (8.4-10.2); Creatinine 1 1.04 mg/dL (0.52-1.04); EST GLOMERULAR FILTRATION RATE 54.7 ML/MIN; Potassium 3.1 mmol/L (3.5-5.1); Total Protein 6.2 g/dL (6.3-8.2)
[2024-08-07] MEDS ORDERED: TRIMETHOPRIM 100 MG PO SCH (10:00)
[2024-08-07] MEDS: ULTRAM 50 MG PO PRN (10:34)
[2024-08-07] MEDS: ROCEPHIN 1 GM / 100 ML NaCl 1 GM/100 ML IVPB IV SCH (10:49)
[2024-08-07] MEDS: Klor Con PO SCH (13:38)
--- NOTE | 2024-08-07 14:42 | PCM.NOTE ---
Date and Time: 08/07/24 4613 Subjective Assessment: Mrs. Gould is a 78 yr old woman with PMHX of cataracts, macular degeneration, hyperlipidemia, HTN, [place], OA, depression, GERD, incontinence, and chronic left knee pain. Patient is here after being found down for over 12 hours at home on 08/06/24. Patient states that she did fall at home. States that she was trying to sit up in bed slipped off the side of the bed. States that she was unable to get up and laid there for 12 hours. Patient has been having more falls frequently. Having some left knee pain that needs to be redone or have some type of surgery per the adult niece in the room and she is to f/u with Dr. Carter at [place]. Pt lives alone. Tarahabena who m is pt's POA would like for pt to go to the [facility] for rehab at d/c. UA + for UTI, UC gram negative and ID pending. Continue rocephin IV. CK on admission elevated but today WNL. IVF stopped. K+ 3.1 today and replaced. Patient denies any chest pain, shortness of breath, nausea, vomiting. She denies hitting her head, denies any other injuries. She has continued weakness today and PT to [facility]. - Review of Systems Constitutional: Weakness, No Fever, No Chills Eyes: No Symptoms Ears, Nose, & Throat: No Symptoms Respiratory: No Cough, No Short Of Breath Cardiac: No Chest Pain, No Edema, No Syncope Abdominal/Gastrointestinal: No Abdominal Pain, No Nausea, No Vomiting, No Parul rrhea Genitourinary Symptoms: Incontinence, No Dysuria Musculoskeletal: No Back Pain, No Neck Pain Skin: No Rash Neurological: No Dizziness, No Focal Weakness, No Sensory Changes Psychological: No Symptoms Endocrine: No Symptoms Hematologic/Lymphatic: No Symptoms Immunological/Allergic: No Symptoms Objective Exam General Appearance: no apparent distress, alert Neurologic Exam: alert, oriented x 3, cooperative, normal mood/affect, nml cerebellar function, sensation nml, No motor deficits Skin Exam: normal color, warm, dry Eye Exam: PERRL, EOMI, eyes nml inspection Ears, Nose, Throat Exam: normal ENT inspection, pharynx normal, moist mucous membranes Neck Exam: normal inspection, non-tender, supple, full range of motion Respiratory Exam: normal breath sounds, lungs clear, No respiratory distress Cardiovascular Exam: regular rate/rhythm, normal heart sounds Gastrointestinal/Abdomen Exam: soft, No tenderness, No mass Extremity Exam: normal inspection, normal range of motion Back Exam: normal inspection, normal range of motion, No CVA tenderness, No vertebral tenderness Pelvic Exam: deferred Rectal Exam: deferred Objective Data Vital Signs: Vital Signs - 24 hr Temp Pulse Resp BP BP Pulse Ox 08/07/24 11:59 98 F 86 17 166/72 96 08/07/24 08:00 97.5 F 93 H 18 151/65 93 L 08/07/24 04:00 98.2 F 80 18 159/70 99 08/07/24 00:00 97.3 F 86 26 H 143/66 93 L 08/06/24 19:11 98 F 103 H 25 H 138/63 96 08/06/24 18:27 98 08/06/24 16:00 97.5 F 81 18 177/72 98 08/06/24 15:31 97.5 F 81 18 177/72 98 08/06/24 15:00 76 20 167/73 96 Pain Assessment - Last Documented Pain Intensity 5 Intake and Output: Intake & Output 08/05/24 08/06/24 08/07/24 08/08/24 11:59 11:59 11:59 11:59 Intake Total 560 120 Balance 560 120 Weight 71.2 kg Lab Results: Lab Results-Last 24 Hours 08/06/24 08/06/24 08/07/24 Range/Units 16:42 20:35 05:49 WBC (3.98-10.04) x10^3/uL RBC (3.93-5.22) x10^6/uL Hgb (11.2-15.7) g/dL Hct (34.1-44.9) % MCV (79.4-94.8) fL MCH (25.6-32.2) pg MCHC (32.2-35.5) g/dL RDW (11.7-14.4) % Plt Count (182-369) x10^3/uL MPV (9.4-12.3) fL Sodium (135-145) mmol/L Potassium (3.5-5.1) mmol/L Chloride (98-107) mmol/L Carbon Dioxide (22-30) mmol/L Anion Gap (5-15) MEQ/L BUN (7-17) mg/dL Creatinine (0.52-1.04) mg/dL Estimated GFR ML/MIN Glucose (74-106) mg/dL Calcium (8.4-10.2) mg/dL Total Bilirubin (0.2-1.3) mg/dL AST (14-36) U/L ALT (0-35) U/L Alkaline Phosphatase (38-126) U/L Creatine Kinase 87 (30-135) U/L Troponin I < 0.012 < 0.012 (0.000-0.033) ng/mL Serum Total Protein (6.3-8.2) g/dL Albumin (3.5-5.0) g/dL 08/07/24 08/07/24 Range/Units 05:49 05:49 WBC 8.7 (3.98-10.04) x10^3/uL RBC 3.52 L (3.93-5.22) x10^6/uL Hgb 10.6 L (11.2-15.7) g/dL Hct 33.3 L (34.1-44.9) % MCV 94.6 (79.4-94.8) fL MCH 30.1 (25.6-32.2) pg MCHC 31.8 L (32.2-35.5) g/dL RDW 14.2 (11.7-14.4) % Plt Count 193 (182-369) x10^3/uL MPV 11.0 (9.4-12.3) fL Sodium 140 (135-145) mmol/L Potassium 3.1 L (3.5-5.1) mmol/L Chloride 108 H (98-107) mmol/L Carbon Dioxide 25 (22-30) mmol/L Anion Gap 9.6 (5-15) MEQ/L BUN 25 H (7-17) mg/dL Creatinine 1.04 (0.52-1.04) mg/dL Estimated GFR 54.7 ML/MIN Glucose 104 (74-106) mg/dL Calcium 9.3 (8.4-10.2) mg/dL Total Bilirubin 0.40 (0.2-1.3) mg/dL AST 24 (14-36) U/L ALT 14 (0-35) U/L Alkaline Phosphatase 68 (38-126) U/L Creatine Kinase (30-135) U/L Troponin I (0.000-0.033) ng/mL Serum Total Protein 6.2 L (6.3-8.2) g/dL Albumin 3.6 (3.5-5.0) g/dL Radiology Exams: Radiology Procedures Category Date Time Status CHEST 1 VIEW (PORTABLE) Stat Exams 08/06/24 12:37 Completed HEAD WITHOUT CONTRAST [CT] Stat Exams 08/06/24 12:37 Completed KNEE (1 OR 2 VIEW) Routine Exams 08/06/24 16:00 Completed PELVIS (1 OR 2 VIEWS) Stat Exams 08/06/24 12:37 Completed Multi-Disciplinary Progress Notes: Multi-Disciplinary Progress Notes 08/07/24 12:49 Case Management Note by Lucrecia Diaz S/W PATIENT LUCIEN CARDOZA, WHO WAS CONCERNED ABOUT PATIENT FREQUENT FALLS. PATIENT AND NIECE AGREEABLE TO PLACEMENT AT THE [facility]. REFERRAL AND PASSR PAPERWORK FAXED TO THE [facility]. THE [facility] HAS ACCEPTED PATIENT WAITING IN INSURANCE PRECERT. Initialized on 08/07/24 12:49 - END OF NOTE 08/07/24 12:25 Case Management Note by Nasrin Fisher PAPERWORK COMPLETE AT THIS TIME- NO LEVEL II REQUIRED. COPIES PLACED ON CHART AND WILL BE SENT TO [facility] WITH REFERRAL Initialized on 08/07/24 12:25 - END OF NOTE Assessment/Plan (1) UTI (urinary tract infection) Current Visit: Yes Status: Acute Assessment & Plan: - UC pending - Ceftriaxone - UC gram negative- sensitivity pending - + chronic incontinence Code(s): N39.0 - URINARY TRACT INFECTION, SITE NOT SPECIFIED (2) Fall from ground level Current Visit: Yes Status: Acute Assessment & Plan: - Knee XR Patient is here after being found down for over 12 hours at home. Patient states that she did fall at home. States that she was trying to sit up in bed slipped off the side of the bed. States that she was unable to get up and laid there for 12 hours. Patient has been having more falls frequently. Having some left knee pain that needs to be redone or have some type of surgery per the adult niece in the room. Patient denies any chest pain, shortness of breath, nausea, vomiting. She denies hitting her head, denies any other injuries. - Pelvis XR Single AP pelvis demonstrates osteopenia, moderate lower lumbar degenerative spondylosis, and incompletely visualized right hip arthroplasty. No acute bony, articular, or soft tissue abnormalities. 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 - Multiple recent falls per pt- uses rollator - PT eval and treat - Pt and niece would like rehab at d/c Code(s): W18.30XA - FALL ON SAME LEVEL, UNSPECIFIED, INITIAL ENCOUNTER (3) Weakness Current Visit: Yes Status: Acute Assessment & Plan: - PT eval Code(s): R53.1 - WEAKNESS (4) HLD (hyperlipidemia) Current Visit: No Status: Chronic Assessment & Plan: - Continue statin Code(s): E78.5 - HYPERLIPIDEMIA, UNSPECIFIED (5) HTN (hypertension) Current Visit: No Status: Chronic Assessment & Plan: - continue home BP meds - started amlodipine 5mg daily Code(s): I10 - ESSENTIAL (PRIMARY) HYPERTENSION (6) Depression Current Visit: Yes Status: Chronic Assessment & Plan: - continue home meds Code(s): F32.A - DEPRESSION, UNSPECIFIED (7) Chronic pain of left knee Current Visit: Yes Status: Chronic Assessment & Plan: - Continue tramadol - XR of Left knee reviewed - F/U with Dr. Emma MEMBRENO VTE:Lovenox PPI: pantoprazole Next of KIN: [facility] [phone] D/C plan: tomorrow? Code status: Full Code(s): M25.562 - PAIN IN LEFT KNEE; G89.29 - OTHER CHRONIC PAIN
[2024-08-07] MEDS: NORVASC 5 MG PO SCH (16:19)
[2024-08-07] MEDS: TYLENOL 325 MG PO PRN (17:12)
[2024-08-07] MEDS: Xalatan OP SCH (22:44)
[2024-08-08 05:52] LABS: Hematocrit 33.2 % (34.1-44.9); Hemoglobin 10.5 g/dL (11.2-15.7); Mean Cell Volume 94.1 fL (79.4-94.8); Mean Corpuscular Hemoglobin 29.7 pg (25.6-32.2); Mean Corpuscular Hgb Concent. 31.6 g/dL (32.2-35.5); Mean Platelet Volume 10.8 fL (9.4-12.3); Platelet Count 199 x10^3/uL (182-369); Red Blood Count 3.53 x10^6/uL (3.93-5.22); Red Cell Distribution Width 14.3 % (11.7-14.4); White Blood Count 9.6 x10^3/uL (3.98-10.04)
[2024-08-08 06:09] LABS: ALBUMIN 3.8 g/dL (3.5-5.0); ANION GAP 8.8 MEQ/L (5-15); BILIRUBIN,TOTAL 0.3 mg/dL (0.2-1.3); Calcium 9.5 mg/dL (8.4-10.2); Creatinine 1 0.98 mg/dL (0.52-1.04); EST GLOMERULAR FILTRATION RATE 58.7 ML/MIN; MAGNESIUM 1.8 mg/dL (1.6-2.3); Potassium 3.7 mmol/L (3.5-5.1); Total Protein 6.7 g/dL (6.3-8.2)
[2024-08-08 07:38] VITALS: RESP 16
[2024-08-08] MEDS: PIPERACILLIN/TAZOBACTAM 3.375 GM in Sodium Chloride 100ML MINI-BAG PLUS 100 ML IV SCH (09:21)
[2024-08-08] MEDS ORDERED: HEPARIN-NS 1,000 UNITS/500 ML IV ONE (09:57)
[2024-08-08] MEDS ORDERED: NON-FORMULARY ITEM (Latanoprost/Pf [Iyuzeh 0.005% Eye Drop] 1 EACH Droperette) DROPS SCH (10:00)
[2024-08-08 10:19] LABS: INR 1.01 (0.8-3.0)
--- NOTE | 2024-08-08 11:59 | XRAY ---
Indication: Ultrasound guidance for PICC line placement. Initial sonographic imaging of the right upper extremity was performed for localization of patent veins. A patent basilic vein identified above the elbow. Ultrasound guidance was then used for PICC line insertion. Full PICC line insertion is reported separately.
--- NOTE | 2024-08-08 12:01 | XRAY ---
Indication: Long-term IV access and therapy for urinary tract infection. Informed consent obtained. Patient was placed on the fluoroscopic table in a supine position. Initial sonographic imaging of the right upper extremity was performed for localization of patent veins. The right upper extremity was then prepped and draped in sterile fashion. Tourniquet applied. 1% lidocaine plain used for local anesthesia. Using ultrasound guidance and a micropuncture needle, a basilic vein above the elbow was successfully percutaneously cannulized. A floppy tip 0.018 guidewire inserted. Tourniquet released. Needle was exchanged for a 5 [place] dilator peel away sheath catheter. Ultimately a 5 [place] double-lumen PICC line was inserted over a longer 0.018 guidewire. Catheter and guidewire further advanced and positioned in the distal SVC using fluoroscopic guidance. Guidewire removed. Both ports flushed with heparinized saline. Catheter was secured. Postoperative instructions and orders given. Patient discharged in goodcondition. Impression: Technically successful right upper extremity PICC line placement using ultrasound and fluoroscopic guidance. No immediate complications. Approximately 2 cc blood loss. Approximately 0.2 minute of fluoroscopy used. Catheter length is 36 cm.
[2024-08-08 12:02] VITALS: BP 157/70; PULSE 84; TEMP 98; O2SAT 98
--- NOTE | 2024-08-08 13:30 | PCM.DS ---
Discharge Summary Date of Admission: 08/06/24 15:09 Date of Discharge: 08/08/24 Admitting Physician: ELSY JOSEPH MD Consults: Consults on Case 08/07/24 16:07 Psychiatric Consult STAT Primary Care Provider: CHRISTOPHER HERNADEZ MD Allergies Allergies lisinopril Adverse Reaction (Verified 08/06/24 15:21) [facility] Summary - Hospital Course Hospital Course: 08/07/24 Mrs. Gould is a 78 yr old woman with PMHX of cataracts, macular degeneration, hyperlipidemia, HTN, KS, OA, depression, GERD, incontinence, and chronic left knee pain. Patient is here after being found down for over 12 hours at home on 08/06/24. Patient states that she did fall at home. States that she was trying to sit up in bed slipped off the side of the bed. States that she was unable to get up and laid there for 12 hours. Patient has been having more falls frequently. Having some left knee pain that needs to be redone or have some type of surgery per the adult niece in the room and she is to f/u with Dr. Carter at [place]. Pt lives alone. Javier who m is pt's POA would like for pt to go to the [facility] for rehab at d/c. UA + for UTI, UC gram negative and ID pending. Continue rocephin IV. CK on admission elevated but today WNL. IVF stopped. K+ 3.1 today and replaced. Patient denies any chest pain, shortness of breath, nausea, vomiting. She denies hitting her head, denies any other injuries. She has continued weakness today and PT to eval. 08/08/24 Pt resting in bed. Urine culture ESBL, e-coli +, IV antibiotic changed to Zosyn per sensitivity report. Psych eval completed and pt to f/u OP for therapy. Pt to d/c to rehab today. PICC line placed for OP antibiotics. She has continued weakness but feeling overall better. She denies CP, SOB, Abd pain, N/V/D. - Vitals & Intake/Output Vital Signs: Vital Signs Temperature 98.0 F 08/08/24 12:00 Pulse Rate 84 08/08/24 12:00 Respiratory Rate 16 08/08/24 12:00 Blood Pressure 157/70 08/08/24 12:00 O2 Sat by Pulse Oximetry 98 08/08/24 12:00 Intake & Output: Intake & Output 08/06/24 08/07/24 08/08/24 08/09/24 11:59 11:59 11:59 11:59 Intake Total 560 1851 240 Balance 560 1855 240 Weight 71.2 kg - Lab Result Diagrams: 08/08/24 05:46 08/08/24 05:46 Lab Results-Last 24 Hrs: Lab Results-Last 24 Hours 08/08/24 08/08/24 08/08/24 Range/Units 05:46 05:46 05:46 WBC 9.6 (3.98-10.04) x10^3/uL RBC 3.53 L (3.93-5.22) x10^6/uL Hgb 10.5 L (11.2-15.7) g/dL Hct 33.2 L (34.1-44.9) % MCV 94.1 (79.4-94.8) fL MCH 29.7 (25.6-32.2) pg MCHC 31.6 L (32.2-35.5) g/dL RDW 14.3 (11.7-14.4) % Plt Count 199 (182-369) x10^3/uL MPV 10.8 (9.4-12.3) fL PT 11.0 (9.4-12.5) SECONDS INR 1.01 (0.8-3.0) APTT 27.0 (25.1-36.5) SECONDS Sodium 140 (135-145) mmol/L Potassium 3.7 (3.5-5.1) mmol/L Chloride 109 H (98-107) mmol/L Carbon Dioxide 25 (22-30) mmol/L Anion Gap 8.8 (5-15) MEQ/L BUN 22 H (7-17) mg/dL Creatinine 0.98 (0.52-1.04) mg/dL Estimated GFR 58.7 ML/MIN Glucose 128 H (74-106) mg/dL Calcium 9.5 (8.4-10.2) mg/dL Magnesium 1.8 (1.6-2.3) mg/dL Total Bilirubin 0.30 (0.2-1.3) mg/dL AST 23 (14-36) U/L ALT 15 (0-35) U/L Alkaline Phosphatase 69 (38-126) U/L Serum Total Protein 6.7 (6.3-8.2) g/dL Albumin 3.8 (3.5-5.0) g/dL Micro Results-Entire Visit: Microbiology 08/06/24 13:20 Urine Culture - Final Catherized Escherichia Coli - Radiology Exams Ordered Rad Exams-Entire Visit: Radiology Procedures Category Date Time Status CHEST 1 VIEW (PORTABLE) Stat Exams 08/06/24 12:37 Completed GUIDE FOR VASCULAR ACCESS [US] Routine Exams 08/08/24 08:40 Completed HEAD WITHOUT CONTRAST [CT] Stat Exams 08/06/24 12:37 Completed KNEE (1 OR 2 VIEW) Routine Exams 08/06/24 16:00 Completed PELVIS (1 OR 2 VIEWS) Stat Exams 08/06/24 12:37 Completed PICC LINE PLACEMENT Routine Exams 08/08/24 08:28 Completed - Procedures and Test Procedures and Tests throughout Hospitalization: Therapy Orders & Screens 08/06/24 15:48 PT Eval & Treat (MD Order) ONCE Reason for Eval:: fall Diagnosis: UTI Discharge Exam General Appearance: no apparent distress, alert Neurologic Exam: alert, oriented x 3, cooperative, normal mood/affect, nml cerebellar function, sensation nml, motor weakness, No motor deficits Eye Exam: PERRL, EOMI, eyes nml inspection Ears, Nose, Throat Exam: normal ENT inspection, pharynx normal, moist mucous membranes Neck Exam: normal inspection, non-tender, supple, full range of motion Respiratory Exam: normal breath sounds, lungs clear, No respiratory distress Cardiovascular Exam: regular rate/rhythm, normal heart sounds Gastrointestinal/Abdomen Exam: soft, No tenderness, No mass Pelvic Exam: deferred Rectal Exam: deferred Back Exam: normal inspection, normal range of motion, No CVA tenderness, No vertebral tenderness Extremity Exam: normal inspection, normal range of motion Skin Exam: normal color, warm, dry Final Diagnosis/Problem List - Final Discharge Diagnosis/Problem (1) UTI (urinary tract infection) Current Visit: Yes Status: Acute Code(s): N39.0 - URINARY TRACT INFECTION, SITE NOT SPECIFIED (2) Fall from ground level Current Visit: Yes Status: Acute Code(s): W18.30XA - FALL ON SAME LEVEL, UNSPECIFIED, INITIAL ENCOUNTER (3) Weakness Current Visit: Yes Status: Acute Code(s): R53.1 - WEAKNESS (4) HLD (hyperlipidemia) Current Visit: No Status: Chronic Code(s): E78.5 - HYPERLIPIDEMIA, UNSPECIFIED (5) HTN (hypertension) Current Visit: No Status: Chronic Code(s): I10 - ESSENTIAL (PRIMARY) HYPERTENSION (6) Depression Current Visit: Yes Status: Chronic Code(s): F32.A - DEPRESSION, UNSPECIFIED (7) Chronic pain of left knee Current Visit: Yes Status: Chronic Assessment & Plan: (1) UTI (urinary tract infection) Current Visit: Yes Status: Acute Assessment & Plan: - UC pending - Ceftriaxone - UC gram negative- sensitivity pending - + chronic incontinence 08/08 - Education provided to not sit in dirty depends, wipe from front to back, try to get to the toilet to have a BM. - UC + ESBL and E-coli - Antibiotic changed to Zosyn per sensitivity report - PICC line ordered for continued OP antibiotic at rehab Code(s): N39.0 - URINARY TRACT INFECTION, SITE NOT SPECIFIED (2) Fall from ground level Current Visit: Yes Status: Acute Assessment & Plan: - Knee XR Patient is here after being found down for over 12 hours at home. Patient states that she did fall at home. States that she was trying to sit up in bed slipped off the side of the bed. States that she was unable to get up and laid there for 12 hours. Patient has been having more falls frequently. Having some left knee pain that needs to be redone or have some type of surgery per the adult niece in the room. Patient denies any chest pain, shortness of breath, nausea, vomiting. She denies hitting her head, denies any other injuries. - Pelvis XR Single AP pelvis demonstrates osteopenia, moderate lower lumbar degenerative spondylosis, and incompletely visualized right hip arthroplasty. No acute bony, articular, or soft tissue abnormalities. 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 - Multiple recent falls per pt- uses rollator - PT eval and treat - Pt and niece would like rehab at d/c 08/08 - Continued weakness- d/c to rehab Code(s): W18.30XA - FALL ON SAME LEVEL, UNSPECIFIED, INITIAL ENCOUNTER (3) Weakness Current Visit: Yes Status: Acute Assessment & Plan: - PT eval Code(s): R53.1 - WEAKNESS (4) HLD (hyperlipidemia) Current Visit: No Status: Chronic Assessment & Plan: - Continue statin Code(s): E78.5 - HYPERLIPIDEMIA, UNSPECIFIED (5) HTN (hypertension) Current Visit: No Status: Chronic Assessment & Plan: - continue home BP meds - started amlodipine 5mg daily Code(s): I10 - ESSENTIAL (PRIMARY) HYPERTENSION (6) Depression Current Visit: Yes Status: Chronic Assessment & Plan: - continue home meds 08/08 - psych consult - F/U OP with [facility] Code(s): F32.A - DEPRESSION, UNSPECIFIED (7) Chronic pain of left knee Current Visit: Yes Status: Chronic Assessment & Plan: - Continue tramadol - XR of Left knee reviewed - F/U with Dr. Carter OP Code(s): M25.562 - PAIN IN LEFT KNEE; G89.29 - OTHER CHRONIC PAIN - Discharge Discharge Date: 08/08/24 Disposition: Home, Self-Care Condition: Stable Prescriptions: Continue Pravastatin Sodium [Pravachol] 40 mg PO HS Oxybutynin Chloride [Oxybutynin Chloride ER] 5 mg PO TID Metoprolol Succinate 25 mg PO DAILY Citalopram Hydrobromide [Celexa] 10 mg PO DAILY Trazodone HCl 50 mg [Desyrel 50 mg] 50 mg PO HS Tramadol HCl 50 mg [Ultram 50 mg] 50 mg PO DAILY PRN PRN Reason: Pain Gabapentin [Neurontin ] 400 mg PO TID Buspirone HCl 5 mg [Buspar 5 mg] 10 mg PO DAILY Bumetanide 1 mg [Bumex 1 mg] 1 mg PO DAILY Aspirin EC 81 mg [Ecotrin 81 mg] 81 mg PO DAILY Trimethoprim 100 mg PO DAILY PANTOPRAZOLE 40 mg Tablet [Protonix 40MG Tablet] 40 mg PO QAM 30 Days #30 tab Losartan Potassium 50 mg [Cozaar 50 MG] 50 mg PO DAILY Non-Formulary Drug [Non-Formulary Bulk Item] 1 tab PO TID Ergocalciferol (Vitamin D2) [Vitamin D2] 50,000 unit PO UD Famotidine [Pepcid] 20 mg PO DAILY Latanoprost/Pf [Iyuzeh 0.005% Eye Drop] 1 drop DROPS DAILY Additional Instructions: HALF-WAY ORDERS: ADMIT TO SKILLED CARE NURSING REGULAR DIET PT/OT EVAL AND TREAT ROUTINE PICC LINE CARE SEE RX FOR ZOSYN IV X DAYS SEE ATTACHED MED LIST Follow up with: HECTOR MCCLENDON [CONSULTING PHYSICIAN] - 10/04/24 2:00 pm SULTANA ANGEL NP [ALLIED HEALTH PROFESSION STAFF] - CHRISTOPHER HERNADEZ MD [Primary Care Provider] -
[2024-08-08] MEDS ORDERED: Sodium Chloride 0.9% 10 ML FLUSH Syringe PICC PRN (13:51)
[2024-08-20] MEDS ORDERED: VITAMIN D2 PO SCH (10:00)
== END 2024-08-08 16:20 | disposition home or self-care (01) ==
LOC: ED 11:59 → MED SURG 15:09
PROVIDERS: ADMIT Internal Medicine; ATTEND Internal Medicine
DX: N39.0 Urinary tract infection, site not specified (principal); B96.20 Unspecified Escherichia coli [E. coli] as the cause of diseases classified elsewhere; R10.32 Left lower quadrant pain; W18.30XA Fall on same level, unspecified, initial encounter; R53.1 Weakness; E78.5 Hyperlipidemia, unspecified; I10 Essential (primary) hypertension; F32.A Depression, unspecified; M25.562 Pain in left knee; G89.29 Other chronic pain; I25.2 Old myocardial infarction; Z79.899 Other long term (current) drug therapy
CPT/HCPCS: 36415; 36573; 70450; 71045; 72170; 73560; 76937; 77001; 80053; 81001; 82550; 83735; 84484; 85025; 85027; 85610; 85730; 87077; 87086; 87186; 93005; 93041; 93268; 96374; 99285; C1769; J0696; J1642; J1650; Q3014; A9270-GY; G0378